=== PATIENT | female | born 1945 | race Caucasian/White ===

== ENCOUNTER 2018-09-10 19:35 | Emergency (ER) | payer MEDICARE, MEDICAID ==
--- NOTE | 2018-09-10 20:21 | ED ---
Back Pain - HPI Summary HPI Summary: This patient is a 73 year old F brought in by ambulance to [facility] from [facility] living with a chief complaint of progressively worsening thoracic and lumber back pain for the past two weeks that differs from her chronic back pain. Patient additionally reports dizziness. She reports three falls in the past two months. She reports chronic back pain from a previous spinal surgery in November of 2017. She is currently seen the pain clinic. She additionally reports a history of Abdominal Aortic Aneurysm. Reports previous bowel obstruction. - History of Current Complaint Chief Complaint: EDBackInjuryPain Stated Complaint: BACK PAIN PER EMS Time Seen by Provider: 09/10/18 19:50 Hx Obtained From: Patient Onset/Duration: Gradual Onset, Lasting Weeks Onset/Duration: Started Weeks Ago Timing: Constant Back Pain Location: Is Diffuse - thoracic and lumbar pain Pain Intensity: 10 Pain Scale Used: 0-10 Numeric Associated Signs And Symptoms: Positive: Other - dizziness - Allergies/Home Medications Allergies/Adverse Reactions: Allergies Allergy/AdvReac Type Severity Reaction Status Date / Time cephalexin Allergy Unknown Verified 09/10/18 20:09 Reaction Details Penicillins Allergy Unknown Verified 09/10/18 20:09 Reaction Details Sulfa (Sulfonamide Allergy Unknown Verified 09/10/18 20:09 Antibiotics) Reaction Details PMH/Surg Hx/FS Hx/Imm Hx Cardiovascular History: Reports: Hx Hypercholesterolemia, Other Cardiovascular Problems/Disorders - AAA per patient Musculoskeletal History: Reports: Hx Arthritis - R.A., Hx Back Problems - Surgical History Surgery Procedure, Year, and Place: Back surgery x2 Infectious Disease History: No Infectious Disease History: Denies: Traveled Outside the [place] in Last 30 Days - Family History Known Family History: Negative: Seizure Disorder - Social History Alcohol Use: None Substance Use Type: Reports: None Smoking Status (MU): Former Smoker Review of Systems Positive: Myalgia Positive: Other - dizziness All Other Systems Reviewed And Are Negative: Yes Physical Exam - Summary Physical Exam Summary: GENERAL: Patient is a well-developed and nourished F who is lying comfortable in the stretcher. Patient is not in any acute respiratory distress. HEAD AND FACE: Normocephalic EYES: PERRLA, EOMI x 2. EARS: Hearing grossly intact. MOUTH: Oropharynx within normal limits. NECK: Supple, trachea is midline, no adenopathy, no JVD, no carotid bruit. CHEST: Symmetric, no tenderness at palpation LUNGS: Clear to auscultation bilaterally. No wheezing or crackles. CVS: Regular rate and rhythm, S1 and S2 present, no murmurs or gallops appreciated. ABDOMEN: Soft, Tenderness to palpation diffusely, no rebound or guarding . Bowel sounds are normal. No abnormal abdominal pulsations. EXTREMITIES: Full ROM in all major joints, no edema, no cyanosis or clubbing. NEURO: Alert and oriented x 3. No acute neurological deficits. Speech is normal and follows commands. SKIN: Dry and warm Triage Information Reviewed: Yes Vital Signs On Initial Exam: Initial Vitals Temp Pulse Resp BP Pulse Ox 98.6 F 77 16 117/80 92 09/10/18 19:43 09/10/18 19:43 09/10/18 19:43 09/10/18 19:43 09/10/18 19:43 Vital Signs Reviewed: Yes Diagnostics - Vital Signs Vital Signs Temp Pulse Resp BP Pulse Ox 09/10/18 19:43 98.6 F 77 16 117/80 92 - Laboratory Result Diagrams: 09/10/18 20:17 09/10/18 20:17 Lab Statement: Any lab studies that have been ordered have been reviewed, and results considered in the medical decision making process. Back Pain Course/Dx - Course Course Of Treatment: 73 year old F brought in by ambulance to [facility] from [facility] with a chief complaint of progressively worsening thoracic and lumber back pain for the past two weeks that differs from her chronic back pain. Patient additionally reports dizziness. She additionally reports a history of Abdominal Aortic Aneurysm. Patient is given IV fluids. Bloodwork obtained. Patient is signed out to Dr. Santos pending Chest/A/P CT. - Diagnoses Provider Diagnoses: Chronic pain Discharge - Sign-Out/Discharge Documenting (check all that apply): Sign-Out Patient Signing out patient TO: Paulo Santos - CT A/P Patient Received Moderate/Deep Sedation with Procedure: No - Discharge Plan Condition: Stable Disposition: HOME Patient Education Materials: Chronic Pain (ED) Referrals: Cynthia Ortega MD [Primary Care Provider] - Additional Instructions: Your CT scan did not show an aneurysm or anything worrisome as a cause of your pain. You are on a number of pain medications already, so I am reluctant to intervene in your regimen. - Billing Disposition and Condition Condition: STABLE Disposition: Home - Attestation Statements Document Initiated by Scribe: Yes Documenting Scribe: Mari Spaulding Provider For Whom Scribe is Documenting (Include Credential): Dennise Saldaña MD Scribe Attestation: IMari, scribed for Dennise Saldaña MD on 09/13/18 at 1249. Scribe Documentation Reviewed: Yes Provider Attestation: The documentation as recorded by the Mari forrest accurately reflects the service I personally performed and the decisions made by , Dennise Saldaña MD Status of Scribe Document: Viewed
[2018-09-10] MEDS ORDERED: NS 0.9% 1000 ML** 1,000 ML IV ONE (20:23)
[2018-09-10 20:31] LABS: ABS Basophils 0.1 10^3/ul (0-0.2); ABS Eosinophils 0.3 10^3/ul (0-0.6); ABS Lymphocytes 1.6 10^3/ul (1.0-4.8); ABS Monocytes 0.8 10^3/ul (0-0.8); ABS Neutrophils 4.1 10^3/ul (1.5-7.7); Eosinophil % 4.8 %; Hematocrit 36 % (35-47); Hemoglobin 11.9 g/dL (12.0-16.0); Lymphocyte % 22.7 %; Mean Corpuscular HGB Conc 34 g/dL (31-36); Mean Corpuscular Hemoglobin 30 pg (27-31); Mean Corpuscular Volume 89 fL (80-97); Mean Platelet Volume 8.9 fL (7.4-10.4); Nucleated Red Blood Cells % 0.1; Platelet Count 255 10^3/uL (150-450); Red Blood Count 4.02 10^6 /uL (3.70-4.87); Red Cell Distribution Width 15 % (10.5-15); White Blood Count 6.8 10^3/uL (3.5-10.8)
[2018-09-10 20:37] LABS: INR 1.11 (0.82-1.09)
[2018-09-10 20:47] LABS: Albumin 3.8 g/dL (3.2-5.2); Albumin/Globulin Ratio 1.8 (1-3); BUN/Creatinine Ratio 25.6 (8-20); EGFR African American 87.8 (>60); EGFR Non-African American 72.6 (>60); Globulin 2.1 g/dL (2-4); Potassium 4.3 mmol/L (3.5-5.0); Total Bilirubin 0.3 mg/dL (0.2-1.0); Total Protein 5.9 g/dL (6.4-8.9)
[2018-09-10] MEDS ORDERED: Iohexol 350* (CONTRAST) 500 ML MDV IV ONE (21:19)
--- NOTE | 2018-09-10 23:24 | ED ---
Progress - Progress Note Progress Note: This patient is a sign-out from Dr. Saldaña to Dr. Santos at 1999 on 09/10/18 at shift change pending CTA chest/A/P and disposition. Course/Dx - Course Course Of Treatment: This patient is a sign-out from Dr. Saldaña to Dr. Santos at 1999 on 09/10/18 at shift change pending CTA chest/A/P and disposition. CT chest revealed 1. No aortic dissection, aneurysm, or rupture. 2. No pulmonary emboli. Findings which in the proper clinical setting can be seen in pulmonary hypertension. 3. 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 Dr. Santos has reviewed this radiology report. CT A/ P revealed 1. Infrarenal fusiform aortic aneurysm. No rupture. 2. Distal colonic diverticulosis. Dr. Santos has reviewed this radiology report. Patient will be discharged home with dx of chronic pain. Patient understands and agrees with this plan. - Diagnoses Provider Diagnoses: Chronic pain Discharge - Sign-Out/Discharge Documenting (check all that apply): Patient Departure - Discharge Patient Received Moderate/Deep Sedation with Procedure: No - Discharge Plan Condition: Stable Disposition: HOME Patient Education Materials: Chronic Pain (ED) Referrals: Cynthia Ortega MD [Primary Care Provider] - Additional Instructions: Your CT scan did not show an aneurysm or anything worrisome as a cause of your pain. You are on a number of pain medications already, so I am reluctant to intervene in your regimen. - Billing Disposition and Condition Condition: STABLE Disposition: Home - Attestation Statements Document Initiated by Altaf: Yes Documenting Scribe: Nahid Monzon Provider For Whom Altaf is Documenting (Include Credential): Paulo Santos MD Scribdamari Attestation: Nahid Tyson, scribed for Paulo Santos MD on 09/12/18 at 0222. Scribe Documentation Reviewed: Yes Provider Attestation: The documentation as recorded by the Nahid forrest accurately reflects the service I personally performed and the decisions made by me, Paulo Santos MD Status of Scrkhanh Document: Viewed
[2018-09-11 00:28] VITALS: BP 134/71
[2018-09-11] MEDS ORDERED: oxyCODONE/Acetamin 5/325 MG* TAB PO ONE (00:54)
== END 2018-09-11 03:47 | disposition home or self-care (01) ==
LOC: ED 19:35
DX: G89.29 Other chronic pain (principal); J43.9 Emphysema, unspecified; I71.9 Aortic aneurysm of unspecified site, without rupture; K57.90 Diverticulosis of intestine, part unspecified, without perforation or abscess without bleeding; Z88.3 Allergy status to other anti-infective agents; Z88.0 Allergy status to penicillin; Z88.2 Allergy status to sulfonamides; E78.00 Pure hypercholesterolemia, unspecified; Z87.891 Personal history of nicotine dependence
CPT/HCPCS: 36415; 71275; 74174; 80053; 83605; 83690; 84484; 85025; 85610; 85730; 99284; A9270-GY; Q9967

== ENCOUNTER 2018-11-06 22:40 | Inpatient (IN) | payer MEDICARE, MEDICAID ==
[2018-11-06] MEDS ORDERED: Albuterol/Ipratropium NEB.SOL* Albuterol 2.5 MG/Ipratropium 0.5 MG 3 ML INH ONE (23:12)
[2018-11-06 23:45] LABS: ABS Basophils 0.1 10^3/ul (0-0.2); ABS Eosinophils 0.1 10^3/ul (0-0.6); ABS Lymphocytes 0.6 10^3/ul (1.0-4.8); ABS Monocytes 0.6 10^3/ul (0-0.8); ABS Neutrophils 7.7 10^3/ul (1.5-7.7); Eosinophil % 1.4 %; Hematocrit 34 % (35-47); Hemoglobin 10.8 g/dL (12.0-16.0); Lymphocyte % 6.2 %; Mean Corpuscular HGB Conc 32 g/dL (31-36); Mean Corpuscular Hemoglobin 27 pg (27-31); Mean Corpuscular Volume 82 fL (80-97); Mean Platelet Volume 8.8 fL (7.4-10.4); Platelet Count 238 10^3/uL (150-450); Red Blood Count 4.07 10^6 /uL (3.70-4.87); Red Cell Distribution Width 17 % (10-15); White Blood Count 9.1 10^3/uL (3.5-10.8)
[2018-11-06 23:50] LABS: INR 1.05 (0.82-1.09)
[2018-11-07] LABS: Albumin 3.7 g/dL (3.2-5.2); Albumin/Globulin Ratio 1.5 (1-3); C Reactive Protein 13.89 mg/L (<8.01); Calcium 9.3 mg/dL (8.6-10.3); EGFR African American 75.4 (>60); EGFR Non-African American 62.3 (>60); Globulin 2.4 g/dL (2-4); Potassium 4.3 mmol/L (3.5-5.0); Total Bilirubin 0.3 mg/dL (0.2-1.0); Total Protein 6.1 g/dL (6.4-8.9)
[2018-11-07] MEDS ORDERED: Levofloxacin 750 MG IVPREMIX(* 750 MG/150 ML BAG IVPB ONE
--- NOTE | 2018-11-07 00:02 | ED ---
Shortness of Breath - HPI Summary HPI Summary: Patient with history of COPD and immunosuppression complains of chills, sweats, productive cough, fatigue, mild SOB 1 week. 2 episodes of bright red blood with coughing today. Denies fever, CP, N/V/D, abdominal pain, change in urine, change in BM. Patient is from [place] in assisted living. Denies recent hospitalization in the past 90 days. EMS states patient went down to 84% O2 sats on room air, and was placed on oxygen. Medical history is COPD, colostomy , greatest. - History of Current Complaint Chief Complaint: EDBleedingDisorder Time Seen by Provider: 11/06/18 22:56 Hx Obtained From: Patient Onset/Duration: Gradual Onset, Lasting Days Current Severity: Moderate Aggravating Factors: Movement Alleviating Factors: Oxygen Associated Signs & Symptoms: Cough (Productive), Cough (Bloody Sputum), Chills - Allergy/Home Medications Allergies/Adverse Reactions: Allergies Allergy/AdvReac Type Severity Reaction Status Date / Time cephalexin Allergy Unknown Verified 11/06/18 22:49 Reaction Details Penicillins Allergy Unknown Verified 11/06/18 22:49 Reaction Details Sulfa (Sulfonamide Allergy Unknown Verified 11/06/18 22:49 Antibiotics) Reaction Details Home Medications: Home Medications Albuterol Sulfate Hfa 2 puff INH QID PRN 11/06/18 [History Confirmed 11/06/18] PMH/Surg Hx/FS Hx/Imm Hx Endocrine/Hematology History: Denies: Hx Diabetes Cardiovascular History: Reports: Hx Hypercholesterolemia, Hx Hypertension, Other Cardiovascular Problems/Disorders - AAA per patient Respiratory History: Reports: Hx Chronic Obstructive Pulmonary Disease (COPD) History: Denies: Hx Renal Disease Musculoskeletal History: Reports: Hx Arthritis - R.A., Hx Back Problems, Hx Osteoporosis Sensory History: Denies: Hx Legally Blind Opthamlomology History: Denies: Hx Eye Prosthesis EENT History: Denies: Hx Deafness Neurological History: Denies: Hx Developmental Delay Psychiatric History: Denies: Hx Autism - Surgical History Surgery Procedure, Year, and Place: Back surgery x2 Infectious Disease History: No Infectious Disease History: Denies: Traveled Outside the [place] in Last 30 Days - Family History Known Family History: Negative: Seizure Disorder - Social History Alcohol Use: None Substance Use Type: Reports: None Smoking Status (MU): Former Smoker Review of Systems Positive: Chills, Fatigue Eyes: Negative ENT: Negative Cardiovascular: Negative Positive: Shortness Of Breath, Cough Gastrointestinal: Negative Genitourinary: Negative Musculoskeletal: Negative Skin: Negative Neurological: Negative Psychological: Normal All Other Systems Reviewed And Are Negative: Yes Physical Exam Triage Information Reviewed: Yes Vital Signs On Initial Exam: Initial Vitals Temp Pulse Resp BP Pulse Ox 98 F 88 20 113/65 94 11/06/18 22:43 11/06/18 22:43 11/06/18 22:43 11/06/18 22:43 11/06/18 22:43 Vital Signs Reviewed: Yes Appearance: Positive: Well-Appearing Skin: Positive: Warm Head/Face: Positive: Normal Head/Face Inspection Eyes: Positive: Normal ENT: Positive: Normal ENT inspection Neck: Positive: Supple Respiratory/Lung Sounds: Positive: Decreased Breath Sounds Cardiovascular: Positive: RRR, Murmur Abdomen Description: Positive: Nontender Musculoskeletal: Positive: Normal Neurological: Positive: Normal Psychiatric: Positive: Normal AVPU Assessment: Alert - Kimberly Coma Scale Best Eye Response: 4 - Spontaneous Best Motor Response: 6 - Obeys Commands Best Verbal Response: 5 - Oriented Coma Scale Total: 15 Diagnostics - Vital Signs Vital Signs Temp Pulse Resp BP Pulse Ox 11/06/18 23:19 86 17 106/63 84 11/06/18 23:17 90 23 89 11/06/18 23:01 88 12 91 11/06/18 22:46 89 113/65 90 11/06/18 22:44 92 11/06/18 22:43 98 F 88 20 113/65 94 - Laboratory Lab Results: Lab Results 11/06/18 11/06/18 11/06/18 Range/Units 23:35 23:37 23:37 WBC 9.1 (3.5-10.8) 10^3/uL RBC 4.07 (3.70-4.87) 10^6 /uL Hgb 10.8 L (12.0-16.0) g/dL Hct 34 L (35-47) % MCV 82 (80-97) fL MCH 27 (27-31) pg MCHC 32 (31-36) g/dL RDW 17 H (10-15) % Plt Count 238 (150-450) 10^3/uL MPV 8.8 (7.4-10.4) fL Neut % (Auto) 84.6 % Lymph % (Auto) 6.2 % Wythe % (Auto) 6.9 % Eos % (Auto) 1.4 % Baso % (Auto) 0.9 % Absolute Neuts (auto) 7.7 (1.5-7.7) 10^3/ul Absolute Lymphs (auto) 0.6 L (1.0-4.8) 10^3/ul Absolute Monos (auto) 0.6 (0-0.8) 10^3/ul Absolute Eos (auto) 0.1 (0-0.6) 10^3/ul Absolute Basos (auto) 0.1 (0-0.2) 10^3/ul Absolute Nucleated RBC 0.0 10^3/ul Nucleated RBC % 0.0 INR (Anticoag Therapy) 1.05 (0.82-1.09) ABG pH 7.39 (7.35-7.45) ABG pCO2 37 (35-45) mmHg ABG pO2 58 L* (80-100) mmHg ABG HCO3 23.0 (19-31) mmol/L ABG O2 Saturation 91.0 L (94.0-98.0) % ABG Base Excess -2.2 L (-2.0-2.0) mmol/L Result Diagrams: 11/06/18 23:37 11/06/18 23:37 Lab Statement: Any lab studies that have been ordered have been reviewed, and results considered in the medical decision making process. Course/Dx - Course Course Of Treatment: Patient with history of COPD and immunosuppression complains of chills, sweats, productive cough, fatigue, mild SOB 1 week. 2 episodes of bright red blood with coughing today. Denies fever, CP, N/V/D, abdominal pain, change in urine, change in BM. Patient is from [place] in assisted living. Denies recent hospitalization in the past 90 days. EMS states patient went down to 84% O2 sats on room air, and was placed on oxygen. Medical history is COPD, colostomy, graves,. 87% on room air. Vital signs otherwise within normal limits. Initial BP within normal limits, later dropped to 90/58. Patient started on normal saline with improvement of BP. Hgb 10.8. Chest x-ray positive for right-sided infiltrate. Started on Levaquin here in the ED. Admitted to hospitalist. - Diagnoses Provider Diagnoses: Pneumonia, Hypoxia Discharge - Sign-Out/Discharge Documenting (check all that apply): Patient Departure Patient Received Moderate/Deep Sedation with Procedure: No - Discharge Plan Condition: Stable Disposition: ADMITTED TO [facility] Referrals: Cynthia Ortega MD [Primary Care Provider] - - Billing Disposition and Condition Condition: STABLE Disposition: Admitted to [facility]
[2018-11-07] MEDS ORDERED: NS 0.9% 1000 ML** 1,000 ML IV ONE ×2 (00:27→17:00)
[2018-11-07] MEDS ORDERED: Acetaminophen TAB* 325 MG PO ONE (00:27)
[2018-11-07] MEDS ORDERED: Acetaminophen / Codeine* #3 (300 MG/30 MG) TAB PO ONE (00:39)
[2018-11-07] MEDS ORDERED: Iohexol 350* (CONTRAST) 500 ML MDV IV ONE (00:51)
[2018-11-07] MEDS ORDERED: Cyclobenzaprine TAB* 10 MG PO PRN (00:54)
[2018-11-07] MEDS ORDERED: Al Hydrox/Mg Hydrox/Simet LIQ* 30 ML UDC PO PRN (00:54)
[2018-11-07] MEDS ORDERED: Albuterol HFA INHALER* 8 gm MDI INH PRN (00:54)
[2018-11-07] MEDS ORDERED: Albuterol/Ipratropium NEB.SOL* Albuterol 2.5 MG/Ipratropium 0.5 MG 3 ML INH PRN (01:25)
[2018-11-07] MEDS ORDERED: PROCHLORPERAZINE INJ 5 MG/ML 2 ML VIAL IV PRN (01:25)
[2018-11-07] MEDS ORDERED: LACTATED RINGERS IV ONE (01:26)
[2018-11-07 03:12] LABS: ABS Basophils 0.1 10^3/ul (0-0.2); ABS Eosinophils 0.1 10^3/ul (0-0.6); ABS Lymphocytes 0.5 10^3/ul (1.0-4.8); ABS Monocytes 0.6 10^3/ul (0-0.8); ABS Neutrophils 8.4 10^3/ul (1.5-7.7); Eosinophil % 0.7 %; Hematocrit 29 % (35-47); Hemoglobin 9.2 g/dL (12.0-16.0); Lymphocyte % 5.4 %; Mean Corpuscular HGB Conc 32 g/dL (31-36); Mean Corpuscular Hemoglobin 26 pg (27-31); Mean Corpuscular Volume 81 fL (80-97); Mean Platelet Volume 9.2 fL (7.4-10.4); Platelet Count 212 10^3/uL (150-450); Red Cell Distribution Width 17 % (10-15); White Blood Count 9.6 10^3/uL (3.5-10.8)
[2018-11-07 03:21] LABS: BUN/Creatinine Ratio 26.2 (8-20); Calcium 8.2 mg/dL (8.6-10.3); EGFR African American 80.6 (>60); EGFR Non-African American 66.6 (>60); Potassium 4.4 mmol/L (3.5-5.0)
--- NOTE | 2018-11-07 04:58 | HP ---
CC: Dr. Ortega; Dr. Mcmahan HISTORY AND PHYSICAL: DATE OF ADMISSION: 11/07/18 TIME OF EVALUATION: 12:10 a.m. PRIMARY CARE PROVIDER: Dr. Ortega. CAST IRON DIPPER: Dr. Mcmahan. CHIEF COMPLAINT: "I was coughing up blood." HISTORY OF PRESENT ILLNESS: Mrs. Stuart is a 73-year-old lady with a past medical history of rheumatoid arthritis; osteoarthritis; coronary artery disease , status post [place]; hypertension; hypothyroidism, who presents to the emergency room with complaints of worsening cough and yellowish sputum mixed with blood. The patient states she was in her usual state of health until two weeks ago when she started to experience dry cough. She states "everyone at [facility] is sick and coughing up everywhere." She states that initially she had only a dry cough and was not taking any medications for it. Over the past couple of days, she started to have some malaise, some weakness and today this cough became productive with yellow/greenish sputum mixed with blood. She states that this has happened to her in the past when she was in [place] and she was diagnosed with pneumonia and treated with antibiotics. She denies chest pain, palpitations, shortness of breath, nausea, vomiting, diarrhea. Although, she denies shortness of breath in the emergency room, she did have an oxygen saturation in the high 80s and required supplemental oxygen. PAST MEDICAL HISTORY: 1. Rheumatoid arthritis. 2. Osteoarthritis. 3. Coronary artery disease, status post AZ. 4. Hypothyroidism. 5. Hypertension. ALLERGIES: CEPHALEXIN, PENICILLIN, and SULFA, the patient has hives and shortness of breath. FAMILY HISTORY: Both parents had a history of heart disease. Her father had bypass and pacemaker and both in their 80s. SOCIAL HISTORY: The patient was a smoker from age 14 to 67 of half a pack a day. She says that then she smoked small cigars, but she has completely quit for the past 6 years. She denies any history of alcohol or drug use. She used to live in [place], but then she moved to [place] to be near her son. Her son is her surrogate decision maker, Dony Stuart, phone number is [phone]. REVIEW OF SYSTEMS: A 14-point review of systems was performed and all the pertinent negatives are in the HPI. PHYSICAL EXAMINATION GENERAL: An obese elderly lady, lying in the ED stretcher, in no acute distress. VITAL SIGNS: Temperature 98.7, heart rate is 88, respiratory rate is 17, oxygen saturation is 92% on 2 L of nasal cannula, blood pressure is 97/54. HEENT: Pupils are equal. Moist mucous membranes. CHEST: Breath sounds present bilaterally with crackles on the right. CVS: Normal S1, S2. ABDOMEN: Obese, soft, nontender, nondistended. Bowel sounds are present. EXTREMITIES: No edema. NEURO: She is alert, awake and oriented x3. Able to move all four extremities. DIAGNOSTIC STUDIES/LAB DATA: The patient had a CBC that showed WBC of 9.1, hemoglobin of 10.8, hematocrit of 34, platelets of 238 with 84% neutrophils. INR is 1.05. ABG showed a pH of 7.39, pCO2 of 37, pO2 of 58, bicarb of 23, oxygen saturation 91% on room air. Chemistry showed sodium of 147, potassium 4.3, chloride of 104, bicarb of 22, BUN of 24, creatinine of 0.89 with a glucose of 129, lactic acid is 3.1, calcium is 9.3. LFTs were normal. CRP is 13.8. Chest x-ray is not yet officially read. The patient appears to have an infiltrate on the right mid lower lobe. ASSESSMENT AND PLAN: Mrs. Stuart is a 73-year-old female with a past medical history of rheumatoid arthritis, osteoarthritis, coronary artery disease, hypertension, hypothyroidism, who presented to the emergency room with complaints of cough and hemoptysis, found to have community-acquired pneumonia. 1. Community-acquired pneumonia. The patient does not meet SIRS criteria at this time, but she clearly has an infection as demonstrated on her chest x-ray. She is immunosuppressed with her rheumatoid arthritis and on methotrexate as an outpatient what inhibits her immune response, so she may not be able to mount a response to meet sepsis criteria. She had an one episode of hypotension with a blood pressure of 78/53 in the emergency room and I believe this is probably secondary to a misread on the machine as shortly after she had a blood pressure of 103/60. Her lactic acid is elevated at 3.1, so she will receive her fluid bolus and we will monitor her vital signs. She states that she had shortness of breath and the rash with cephalosporins and penicillin, so she will be continued on levofloxacin at this time. I will send Legionella and Pneumococcal antigen. Blood cultures were sent in the emergency room. As the patient has hypoxia and hemoptysis, I am also going to check a CT of the chest to better delineate her infiltrate and to rule out pulmonary embolism. 2. Acute hypoxemic respiratory failure secondary to pneumonia. The patient lives alone. History of tobacco abuse. We will continue supplemental oxygen and she does not appear to require any bronchodilators at this time. 3. Hypertension. Her blood pressure is on the lower side at this time. We will continue her antihypertensives with holding parameters. 4. Hypothyroidism. We will continue on levothyroxine. 5. Rheumatoid arthritis. We will continue hydroxychloroquine, but we will hold methotrexate for now. 6. DVT prophylaxis: The patient has a score of 3 on the DVT Prophylaxis Risk Assessment Guide. We will hold off on pharmacological prophylaxis for now due to her hemoptysis and she will have SCDs. As her hemoptysis improve, pharmacological prophylaxis can be considered. 7. Code status was discussed with the patient and she wishes to be a full code. TIME SPENT: Approximately 55 minutes was spent with the patient's review , medical records review, physical examination to complete this admission, more than half of this time was spent [id number] with the patient and coordination of care. [id number]/[facility] #: [id number] [place]
[2018-11-07] MEDS: Levothyroxine TAB* 112 MCG TAB PO SCH (05:09)
[2018-11-07] MEDS ORDERED: Heparin VIAL(*) 5000 UNITS/ML VIAL (FIVE THOUSAND) SUBCUT SCH (06:00)
[2018-11-07] MEDS ORDERED: Metoprolol Tartrate TAB* 50 mg PO SCH ×2 (09:00)
[2018-11-07] MEDS ORDERED: Verapamil SR CAP* 180 MG PO SCH (09:00)
[2018-11-07] MEDS ORDERED: Hydrochlorothiazide TAB* 25 MG PO SCH (09:00)
--- NOTE | 2018-11-07 09:48 | PN ---
Subjective Date of Service: 11/07/18 Interval History: Patient complained of pain on her back and joints which she used to have due to rheumatoid arthritis. She was on pain patch before and was asking for it here. She complained of central chest pain on and off, lasting seconds, no palpitation , no light headiness associated. She denied any past history of heart disease. Objective Active Medications: Acetaminophen (Tylenol Tab*) 650 mg PO Q6H PRN PRN Reason: mild pain/fever>100.4 Acetaminophen/Codeine Phosphate (Tylenol/Codeine 30 Mg Tab*) 2 tab PO BID PRN PRN Reason: Moderate Pain Al Hydrox/Mg Hydrox/Simethicone (Maalox Plus*) 5 ml PO Q4H PRN PRN Reason: HEARTBURN Albuterol (Ventolin Hfa Inhaler*) 2 puff INH QID PRN PRN Reason: SHORTNESS OF BREATH Albuterol/Ipratropium (Duoneb (Albuterol 2.5 Mg/Ipratropium 0.5 Mg)) 1 neb INH Q4H PRN PRN Reason: SOB/WHEEZING Alprazolam (Xanax Tab*) 0.25 mg PO BID PRN PRN Reason: ANXIETY Aspirin (Aspirin Ec Tab*) 81 mg PO DAILY [facility] Atorvastatin Calcium (Lipitor*) 40 mg PO DAILY [facility] Calcium/Vitamin D (Oscal D Tab 250/125*) 1 tab PO BID [facility] Cyclobenzaprine HCl (Flexeril Tab*) 5 mg PO BID PRN PRN Reason: SPASMS Duloxetine HCl (Cymbalta Cap*) 20 mg PO DAILY [facility] Famotidine (Pepcid Tab*) 20 mg PO BEDTIME [facility]; Protocol Folic Acid (Folvite Tab*) 1 mg PO DAILY [facility] Gabapentin (Neurontin Cap(*)) 300 mg PO TID [facility] Hydroxychloroquine Sulfate (Plaquenil Tab*) 200 mg PO DAILY [facility] Levofloxacin/Dextrose (Levaquin 750 Mg Ivpremix(*)) 750 mg in 150 mls @ 100 mls /hr IVPB Q24H [facility]; Protocol Levothyroxine Sodium (Synthroid Tab*) 112 mcg PO DAILY@0600 [facility] Last Admin: 11/07/18 05:09 Dose: 112 mcg Lidocaine (Lidoderm 5% Patch*) 1 patch TRANSDERM DAILY [facility] Metoprolol Tartrate (Lopressor Tab*) 50 mg PO BID [facility] Multi-Ingredient Liniment/Rub (Arjun Moreno*) 1 applic TOPICAL TID [facility] Pantoprazole Sodium (Protonix Tab*) 40 mg PO DAILY [facility] Pharmacy Profile Note (Lidocaine Patch Remove*) 1 note N/A 2100 [facility] Potassium Chloride (Klor Con Er Tab*) 10 meq PO BID [facility] Prochlorperazine Edisylate (Compazine Inj*) 5 mg IV Q6H PRN PRN Reason: NAUSEA/VOMITING Verapamil HCl (Calan Sr Cap*) 180 mg PO DAILY [facility] Vital Signs - 8 hr 11/07/18 11/07/18 11/07/18 01:46 01:48 02:00 Temperature 98.7 F Pulse Rate 93 91 Respiratory 19 20 Rate Blood Pressure 115/56 (mmHg) O2 Sat by Pulse 90 90 Oximetry 11/07/18 11/07/18 11/07/18 02:17 02:47 03:00 Temperature Pulse Rate 91 91 87 Respiratory 19 21 20 Rate Blood Pressure 104/62 (mmHg) O2 Sat by Pulse 89 90 90 Oximetry 11/07/18 11/07/18 11/07/18 03:16 03:47 03:54 Temperature 98.9 F Pulse Rate 89 87 89 Respiratory 21 19 19 Rate Blood Pressure 115/61 99/54 99/54 (mmHg) O2 Sat by Pulse 90 89 91 Oximetry 11/07/18 11/07/18 11/07/18 04:01 04:27 07:15 Temperature 98.4 F 98.2 F Pulse Rate 88 90 85 Respiratory 21 20 20 Rate Blood Pressure 105/50 111/50 (mmHg) O2 Sat by Pulse 90 94 95 Oximetry 11/07/18 07:50 Temperature Pulse Rate Respiratory 20 Rate Blood Pressure (mmHg) O2 Sat by Pulse Oximetry Oxygen Devices in Use Now: Nasal Cannula Exam: heart S1 S2, holysystolic murmur loudest on right sternal edge Lung: bibasal crackles, right side crackles prominent in both middle and lower lobes Abdomen: colostomy bag noted, soft, non tender. Lower exemity: no swelling Result Diagrams: 11/07/18 02:57 11/07/18 02:57 Additional Lab and Data: Lab Results 11/06/18 11/06/18 11/06/18 Range/Units 23:35 23:37 23:37 WBC 9.1 (3.5-10.8) 10^3/uL RBC 4.07 (3.70-4.87) 10^6 /uL Hgb 10.8 L (12.0-16.0) g/dL Hct 34 L (35-47) % MCV 82 (80-97) fL MCH 27 (27-31) pg MCHC 32 (31-36) g/dL RDW 17 H (10-15) % Plt Count 238 (150-450) 10^3/uL MPV 8.8 (7.4-10.4) fL Neut % (Auto) 84.6 % Lymph % (Auto) 6.2 % [place] % (Auto) 6.9 % Eos % (Auto) 1.4 % Baso % (Auto) 0.9 % Absolute Neuts (auto) 7.7 (1.5-7.7) 10^3/ul Absolute Lymphs (auto) 0.6 L (1.0-4.8) 10^3/ul Absolute Monos (auto) 0.6 (0-0.8) 10^3/ul Absolute Eos (auto) 0.1 (0-0.6) 10^3/ul Absolute Basos (auto) 0.1 (0-0.2) 10^3/ul Absolute Nucleated RBC 0.0 10^3/ul Nucleated RBC % 0.0 INR (Anticoag Therapy) 1.05 (0.82-1.09) ABG pH 7.39 (7.35-7.45) ABG pCO2 37 (35-45) mmHg ABG pO2 58 L* (80-100) mmHg ABG HCO3 23.0 (19-31) mmol/L ABG O2 Saturation 91.0 L (94.0-98.0) % ABG Base Excess -2.2 L (-2.0-2.0) mmol/L Assess/Plan/Problems-Billing Assessment: Ms. Stuart is a 73 years old lady with a background of rheumatoid arthritis, osteoarthritis, coronary artery disease, status post CA, hypertension, hypothjyroidism, who presented to ED for worsening cough and hemoptysis. With her symptoms of cough and hemoptysis, her elevated WBC and CRP, infiltrate on right middle and lower lobe in CXR, she is certainly having a community acquired pneumonia. She didn't have any fever, hypotension, kidney injury at this moment, although lactate is midly elevated, her penumonia is considering mid-moderate. But again, this could be due to her immunosuppressant state so she couldn't mount SIRS response as normal people. We are treating for CAP with levofloxacin in view of allergy, and will monitor how she responds to this treatment. - Patient Problems (1) Community acquired pneumonia Current Visit: Yes Status: Acute Code(s): J18.9 - PNEUMONIA, UNSPECIFIED ORGANISM SNOMED Code(s): 631610452 Comment: Continue iv levofloxacin continue O2 nasal canula, try to wean down when possible. monitor antibiotic response trace strep peumonia, legionella result (2) Rheumatoid arthritis Current Visit: Yes Status: Acute Code(s): M06.9 - RHEUMATOID ARTHRITIS, UNSPECIFIED SNOMED Code(s): 94521328 Comment: on MTX and hydroxychloroquine, we hold off Methotrexate for now due to infection. Lidocaine patch and Arjun-Moreno patches for her arthritic pain. (3) Hypertension Current Visit: Yes Status: Acute Code(s): I10 - ESSENTIAL (PRIMARY) HYPERTENSION SNOMED Code(s): 63889875 Comment: - old med include hydrochlothiazide, verapamil, metoprolol for hypertension - bp lowish since admission, stop hydrochlothiazide, verapamil, decrease metoprol to 25mg bid for now - put on NS for bp and hydration purpose - watch bp closely (4) Hypothyroidism Current Visit: Yes Status: Acute Code(s): E03.9 - HYPOTHYROIDISM, UNSPECIFIED SNOMED Code(s): 57922213 Comment: Continue old dose of levothyroidism (5) Osteoarthritis Current Visit: Yes Status: Acute Code(s): M19.90 - UNSPECIFIED OSTEOARTHRITIS, UNSPECIFIED SITE SNOMED Code(s): 047539478 Comment: not well controlled pain despite multiple med, see details under the problem joint pain (6) Coronary artery disease Current Visit: Yes Status: Acute Code(s): I25.10 - ATHSCL HEART DISEASE OF [place] CORONARY ARTERY W/O ANG PCTRS SNOMED Code(s): 05782353 Comment: on aspirin, statin, metoprolol (7) Joint pain Current Visit: Yes Status: Acute Code(s): M25.50 - PAIN IN UNSPECIFIED JOINT SNOMED Code(s): 17904555 Comment: old pain med: ibuprofen 400mg q8h, acetaminophen/codeine 30mg tab, buprenorhine 10mcg patch, gabapentin, duolexetine - add on diclofenac gel and lidocaine patch since buprenorhine patch not available in hospital - continue ibuprofen and acetaminophen/codeine, gabapentin for now - consider heat/ice compression for joint pain Status and Disposition: Still inpatient medicine Attestation Documenting Resident: Lizzy Wu Supervising Physician: Hiral Isbell Attestation: This service has been performed in part by a resident under the direction of a teaching physician.I, Hiral Isbell, performed the service, or was physically present during the critical, or sanchez portions of the service, furnished by the resident. I participated in the management of the patient.
[2018-11-07] MEDS: Lidocaine PATCH 5%* 1 PATCH TRANSDERM SCH (10:02)
[2018-11-07] MEDS: Calcium/Vitamin D TAB 250/125* TAB PO SCH ×2 (10:02→20:16)
[2018-11-07] MEDS: Pantoprazole TAB * 40 MG TAB PO SCH (10:02)
[2018-11-07] MEDS: Folic Acid TAB* 1 MG PO SCH (10:02)
[2018-11-07] MEDS: Atorvastatin* 40 MG TAB PO SCH (10:03)
[2018-11-07] MEDS: DULoxetine DR CAP* 20 MG CAP.DR PO SCH (10:03)
[2018-11-07] MEDS: Aspirin EC TAB* 81 MG TAB.EC PO SCH (10:03)
[2018-11-07] MEDS: Hydroxychloroquine TAB* 200 MG PO SCH (10:03)
[2018-11-07] MEDS: Gabapentin CAP(*) 300 MG PO SCH ×3 (10:03→20:16)
[2018-11-07] MEDS: Potassium Chlor TAB* 10 MEQ TAB.ER PO SCH ×2 (10:03→20:16)
[2018-11-07] MEDS: Analgesic BALM* 114 GM TOPICAL SCH ×2 (11:25→12:26)
[2018-11-07] MEDS: Acetaminophen TAB* 325 MG PO PRN (14:57)
--- NOTE | 2018-11-07 18:30 | PN ---
Hospitalist Progress Note Date of Service: 11/07/18 Subjective and Objective data per resident note for which I supervised. Attending Assessment and Plan: 73F PMH RA on MTX/Plaquenil, chronic pain on Butrans, anxeity and depression on benzo, HTN, hypothyroid, CAD s/p distant DE, heart murmur with recent Echo showing Left Ventricular Hypertrophy w DYNAMIC LVOT who presented with cough found to have RLL PNA, hypoxic resp failure, elevated lactic acid Hospital course c/b mild hypotension #CAP: -Levaquin day 05/19-10 on 11/07/2018 -Allergy to Cephalosporins -Continue to monitor #Hypoxic Resp failure: New O2 requirement #Hypotension: Ongoing, repsonsive to gentle fluids -Dose reduce metoprolol -DC HCTZ -Hold Verapmil 180mg SR #Elevated Lactic Acid, initially improved then increased with hypotension again -Trend #Chronic pain: Tylenol, topical, add Buprenorphine low dose oral daily to prevent w/ drawal from d/c patch -Consider pred burst to help from rheum component #RA: Continue plaquenil, reasonable to hold MTX given active infxn #HTN: see Hypotension above #Hypothyroid: home dose #Anxiety/Depression: home meds #DVT PPX: Held for hemptysis, will resume today with [facility] #Code Status: Full
[2018-11-07] MEDS ORDERED: Buprenorphine TAB* 2 MG TAB.SL PO PRN (18:33)
[2018-11-07] MEDS ORDERED: BUPRENORPHINE TRANSDERM SCH (19:30)
[2018-11-07] MEDS: Famotidine TAB* 20 MG PO SCH (20:16)
[2018-11-07] MEDS: Metoprolol Tartrate TAB* 25 MG PO SCH (20:16)
[2018-11-07] MEDS: Lidocaine Patch REMOVE* 1 NOTE MISC SCH (20:22)
[2018-11-07] MEDS: Heparin VIAL(*) 5000 UNITS/ML VIAL (FIVE THOUSAND) SUBCUT SCH (20:23)
[2018-11-08] MEDS: Levofloxacin 750 MG IVPREMIX(* 750 MG/150 ML BAG IVPB SCH (00:36)
[2018-11-08] MEDS: Acetaminophen / Codeine* #3 (300 MG/30 MG) TAB PO PRN ×2 (04:00→21:38)
[2018-11-08] MEDS: Heparin VIAL(*) 5000 UNITS/ML VIAL (FIVE THOUSAND) SUBCUT SCH ×3 (05:46→21:39)
[2018-11-08] MEDS: Levothyroxine TAB* 112 MCG TAB PO SCH (05:47)
[2018-11-08 06:18] LABS: ABS Basophils 0.1 10^3/ul (0-0.2); ABS Eosinophils 0.3 10^3/ul (0-0.6); ABS Lymphocytes 0.8 10^3/ul (1.0-4.8); ABS Monocytes 0.7 10^3/ul (0-0.8); Eosinophil % 2.8 %; Hematocrit 27 % (35-47); Lymphocyte % 8.4 %; Mean Corpuscular HGB Conc 33 g/dL (31-36); Mean Corpuscular Hemoglobin 27 pg (27-31); Mean Corpuscular Volume 82 fL (80-97); Mean Platelet Volume 9.2 fL (7.4-10.4); Platelet Count 197 10^3/uL (150-450); Red Blood Count 3.35 10^6 /uL (3.70-4.87); Red Cell Distribution Width 17 % (10-15); White Blood Count 9.9 10^3/uL (3.5-10.8)
[2018-11-08 06:33] LABS: BUN/Creatinine Ratio 25.4 (8-20); EGFR African American 104.7 (>60); EGFR Non-African American 86.5 (>60)
[2018-11-08] MEDS: Buprenorph Patch Check Q Shift 1 NOTE MISC FOLLOW UP SCH ×2 (06:52→19:10)
--- NOTE | 2018-11-08 08:54 | PN ---
Hospitalist Progress Note Date of Service: 11/08/18 HD # 3 on 11/08 Attending Assessment and Plan: 73F PMH RA on MTX/Plaquenil, chronic pain on Butrans, ostomy status from prior diverticulitis, anxeity and depression on benzo, HTN, hypothyroid, CAD s/p distant ID, heart murmur with recent Echo showing Left Ventricular Hypertrophy w DYNAMIC LVOT who presented with cough found to have RLL PNA, hypoxic resp failure, #CAP: -Levaquin day 06/16 on 11/08/2018 -Allergy to Cephalosporins -Continue to monitor, improving on exam and clinically #Hypoxic Resp failure: New O2 requirement, weaning today #Heart murmur: Old echo showed dynamic LVOT, continue home Verapamil and BB when BP is normal #Hypotension: resolved consider restarting antiHTN #Elevated Lactic Acid: Resolved #Chronic pain: Tylenol, topical, Buprenorphine patch #RA: Continue plaquenil, reasonable to hold MTX given active infxn #HTN: see Hypotension above #Hypothyroid: home dose #Anxiety/Depression: home meds #Ostomy status: 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
--- NOTE | 2018-11-08 08:54 | PN ---
Subjective Date of Service: 11/08/18 Interval History: HD # 3 on 11/08 Attending Assessment and Plan: 73F PMH RA on MTX/Plaquenil, chronic pain on Butrans, anxeity and depression on benzo, HTN, hypothyroid, CAD s/p distant [place], heart murmur with recent Echo showing Left Ventricular Hypertrophy w DYNAMIC LVOT who presented with cough found to have RLL PNA, hypoxic resp failure, elevated lactic acid Hospital course c/b mild hypotension #CAP: -Levaquin day 05/19-10 on 11/07/2018 -Allergy to Cephalosporins -Continue to monitor #Hypoxic Resp failure: New O2 requirement #Hypotension: Ongoing, repsonsive to gentle fluids -Dose reduce metoprolol -DC HCTZ -Hold Verapmil 180mg SR #Elevated Lactic Acid, initially improved then increased with hypotension again -Trend #Chronic pain: Tylenol, topical, add Buprenorphine patch -Consider pred burst to help from rheum component #RA: Continue plaquenil, reasonable to hold MTX given active infxn #HTN: see Hypotension above #Hypothyroid: home dose #Anxiety/Depression: home meds #Ostomy stat #DVT PPX: Held for hemptysis, will resume today with [facility] #Code Status: Full Objective Active Medications: Acetaminophen (Tylenol Tab*) 650 mg PO Q6H PRN PRN Reason: mild pain/fever>100.4 Last Admin: 11/07/18 14:57 Dose: 650 mg Acetaminophen/Codeine Phosphate (Tylenol/Codeine 30 Mg Tab*) 2 tab PO BID PRN PRN Reason: Moderate Pain Last Admin: 11/08/18 04:00 Dose: 2 tab Al Hydrox/Mg Hydrox/Simethicone (Maalox Plus*) 5 ml PO Q4H PRN PRN Reason: HEARTBURN Albuterol (Ventolin Hfa Inhaler*) 2 puff INH QID PRN PRN Reason: SHORTNESS OF BREATH Albuterol/Ipratropium (Duoneb (Albuterol 2.5 Mg/Ipratropium 0.5 Mg)) 1 neb INH Q4H PRN PRN Reason: SOB/WHEEZING Alprazolam (Xanax Tab*) 0.25 mg PO BID PRN PRN Reason: ANXIETY Aspirin (Aspirin Ec Tab*) 81 mg PO DAILY [facility] Last Admin: 11/07/18 10:03 Dose: 81 mg Atorvastatin Calcium (Lipitor*) 40 mg PO DAILY [facility] Last Admin: 11/07/18 10:03 Dose: 40 mg Buprenorphine (Butrans 10 Mcg Patch(Nf)) 10 mcg TRANSDERM Q7D [facility] Last Admin: 11/07/18 20:17 Dose: 10 mcg Calcium/Vitamin D (Oscal D Tab 250/125*) 1 tab PO BID [facility] Last Admin: 11/07/18 20:16 Dose: 1 tab Cyclobenzaprine HCl (Flexeril Tab*) 5 mg PO BID PRN PRN Reason: SPASMS Duloxetine HCl (Cymbalta Cap*) 20 mg PO DAILY [facility] Last Admin: 11/07/18 10:03 Dose: 20 mg Famotidine (Pepcid Tab*) 20 mg PO BEDTIME [facility]; Protocol Last Admin: 11/07/18 20:16 Dose: 20 mg Folic Acid (Folvite Tab*) 1 mg PO DAILY [facility] Last Admin: 11/07/18 10:02 Dose: 1 mg Gabapentin (Neurontin Cap(*)) 300 mg PO TID [facility] Last Admin: 11/07/18 20:16 Dose: 300 mg Heparin Sodium (Porcine) (Heparin Vial(*)) 5,000 units SUBCUT Q8HR [facility] Last Admin: 11/08/18 05:46 Dose: 5,000 units Hydroxychloroquine Sulfate (Plaquenil Tab*) 200 mg PO DAILY [facility] Last Admin: 11/07/18 10:03 Dose: 200 mg Levofloxacin/Dextrose (Levaquin 750 Mg Ivpremix(*)) 750 mg in 150 mls @ 100 mls /hr IVPB Q24H [facility]; Protocol Last Admin: 11/08/18 00:36 Dose: 100 mls/hr Levothyroxine Sodium (Synthroid Tab*) 112 mcg PO DAILY@0600 [facility] Last Admin: 11/08/18 05:47 Dose: 112 mcg Lidocaine (Lidoderm 5% Patch*) 1 patch TRANSDERM DAILY [facility] Last Admin: 11/07/18 10:02 Dose: 1 patch Lidocaine (Topicaine 4% Gel*) 1 applic TOPICAL TID [facility] Metoprolol Tartrate (Lopressor Tab*) 25 mg PO BID [facility] Last Admin: 11/07/18 20:16 Dose: 25 mg Pantoprazole Sodium (Protonix Tab*) 40 mg PO DAILY [facility] Last Admin: 11/07/18 10:02 Dose: 40 mg Pharmacy Profile Note (Lidocaine Patch Remove*) 1 note N/A 2100 [facility] Last Admin: 11/07/18 20:22 Dose: 1 note Pharmacy Profile Note (Buprenorph Patch Check Q Shift) 1 note FOLLOW UP 07, 1900 [facility] Last Admin: 11/08/18 06:52 Dose: 1 note Potassium Chloride (Klor Con Er Tab*) 10 meq PO BID [facility] Last Admin: 11/07/18 20:16 Dose: 10 meq Prochlorperazine Edisylate (Compazine Inj*) 5 mg IV Q6H PRN PRN Reason: NAUSEA/VOMITING Vital Signs - 8 hr 11/08/18 11/08/18 11/08/18 03:19 04:00 06:55 Temperature 98.4 F Pulse Rate 85 Respiratory 18 20 18 Rate Blood Pressure 149/72 (mmHg) O2 Sat by Pulse 100 Oximetry 11/08/18 07:47 Temperature 99.3 F Pulse Rate 97 Respiratory 14 Rate Blood Pressure 134/60 (mmHg) O2 Sat by Pulse 95 Oximetry Oxygen Devices in Use Now: Nasal Cannula Result Diagrams: 11/08/18 05:59 11/08/18 05:59 Additional Lab and Data: Lab Results 11/06/18 11/06/18 11/06/18 Range/Units 23:35 23:37 23:37 WBC 9.1 (3.5-10.8) 10^3/uL RBC 4.07 (3.70-4.87) 10^6 /uL Hgb 10.8 L (12.0-16.0) g/dL Hct 34 L (35-47) % MCV 82 (80-97) fL MCH 27 (27-31) pg MCHC 32 (31-36) g/dL RDW 17 H (10-15) % Plt Count 238 (150-450) 10^3/uL MPV 8.8 (7.4-10.4) fL Neut % (Auto) 84.6 % Lymph % (Auto) 6.2 % [place] % (Auto) 6.9 % Eos % (Auto) 1.4 % Baso % (Auto) 0.9 % Absolute Neuts (auto) 7.7 (1.5-7.7) 10^3/ul Absolute Lymphs (auto) 0.6 L (1.0-4.8) 10^3/ul Absolute Monos (auto) 0.6 (0-0.8) 10^3/ul Absolute Eos (auto) 0.1 (0-0.6) 10^3/ul Absolute Basos (auto) 0.1 (0-0.2) 10^3/ul Absolute Nucleated RBC 0.0 10^3/ul Nucleated RBC % 0.0 INR (Anticoag Therapy) 1.05 (0.82-1.09) ABG pH 7.39 (7.35-7.45) ABG pCO2 37 (35-45) mmHg ABG pO2 58 L* (80-100) mmHg ABG HCO3 23.0 (19-31) mmol/L ABG O2 Saturation 91.0 L (94.0-98.0) % ABG Base Excess -2.2 L (-2.0-2.0) mmol/L Microbiology and Other Data: Microbiology 11/07/18 00:13 Aerobic Blood Culture - Preliminary Blood Venous No Growth Day 1 Anaerobic Blood Culture - Preliminary No Growth Day 1 11/07/18 00:13 Aerobic Blood Culture - Preliminary Blood Venous No Growth Day 1 Anaerobic Blood Culture - Preliminary No Growth Day 1 11/07/18 18:50 Legionella Urinary Antigen - Final Urine Negative Legionella Antigen Streptococcus pneumoniae Ag Screen - Final Negative S. pneumo Antigen 11/07/18 01:35 Nasal Screen MRSA (PCR) - Final Nasal Mrsa Not Detected Assess/Plan/Problems-Billing Assessment: Ms. Stuart is a 73 years old lady with a background of rheumatoid arthritis, osteoarthritis, coronary artery disease, status post [place], hypertension, hypothjyroidism, who presented to ED for worsening cough and hemoptysis. With her symptoms of cough and hemoptysis, her elevated WBC and CRP, infiltrate on right middle and lower lobe in CXR, she is certainly having a community acquired pneumonia. She didn't have any fever, hypotension, kidney injury at this moment, although lactate is midly elevated, her penumonia is considering mid-moderate. But again, this could be due to her immunosuppressant state so she couldn't mount SIRS response as normal people. We are treating for CAP with levofloxacin in view of allergy, and will monitor how she responds to this treatment. Status and Disposition: Still inpatient medicine
[2018-11-08] MEDS: Lidocaine PATCH 5%* 1 PATCH TRANSDERM SCH (09:57)
[2018-11-08] MEDS: Calcium/Vitamin D TAB 250/125* TAB PO SCH ×2 (09:58→21:31)
[2018-11-08] MEDS: Gabapentin CAP(*) 300 MG PO SCH ×3 (09:58→21:31)
[2018-11-08] MEDS: Pantoprazole TAB * 40 MG TAB PO SCH (09:58)
[2018-11-08] MEDS: Hydroxychloroquine TAB* 200 MG PO SCH (09:58)
[2018-11-08] MEDS: Lidocaine 4% GEL* 10 GM TUBE TOPICAL SCH ×3 (09:58→21:35)
[2018-11-08] MEDS: Potassium Chlor TAB* 10 MEQ TAB.ER PO SCH ×2 (09:58→21:30)
[2018-11-08] MEDS: DULoxetine DR CAP* 20 MG CAP.DR PO SCH (09:58)
[2018-11-08] MEDS: Metoprolol Tartrate TAB* 25 MG PO SCH (09:58)
[2018-11-08] MEDS: Aspirin EC TAB* 81 MG TAB.EC PO SCH (09:58)
[2018-11-08] MEDS: Atorvastatin* 40 MG TAB PO SCH (09:58)
[2018-11-08] MEDS: Folic Acid TAB* 1 MG PO SCH (10:02)
[2018-11-08] MEDS: Acetaminophen TAB* 325 MG PO PRN (11:30)
[2018-11-08] MEDS: ALPRAZolam TAB* 0.25 MG PO PRN (11:30)
--- NOTE | 2018-11-08 15:33 | PN ---
Subjective Date of Service: 11/08/18 Interval History: Patient complained of pain up to 7-8/10 overnight, mainly on bilateral shoulder and left knee. He also complained of sleeplessness overnight as her neighbours were screaming the whole night. She felt better in breathing. Able to ambulate by herself without difficulties. Objective Active Medications: Acetaminophen (Tylenol Tab*) 650 mg PO Q6H PRN PRN Reason: mild pain/fever>100.4 Last Admin: 11/08/18 11:30 Dose: 650 mg Acetaminophen/Codeine Phosphate (Tylenol/Codeine 30 Mg Tab*) 2 tab PO BID PRN PRN Reason: Moderate Pain Last Admin: 11/08/18 04:00 Dose: 2 tab Al Hydrox/Mg Hydrox/Simethicone (Maalox Plus*) 5 ml PO Q4H PRN PRN Reason: HEARTBURN Albuterol (Ventolin Hfa Inhaler*) 2 puff INH QID PRN PRN Reason: SHORTNESS OF BREATH Albuterol/Ipratropium (Duoneb (Albuterol 2.5 Mg/Ipratropium 0.5 Mg)) 1 neb INH Q4H PRN PRN Reason: SOB/WHEEZING Alprazolam (Xanax Tab*) 0.25 mg PO BID PRN PRN Reason: ANXIETY Last Admin: 11/08/18 11:30 Dose: 0.25 mg Aspirin (Aspirin Ec Tab*) 81 mg PO DAILY [facility] Last Admin: 11/08/18 09:58 Dose: 81 mg Atorvastatin Calcium (Lipitor*) 40 mg PO DAILY [facility] Last Admin: 11/08/18 09:58 Dose: 40 mg Buprenorphine (Butrans 10 Mcg Patch(Nf)) 10 mcg TRANSDERM Q7D [facility] Last Admin: 11/07/18 20:17 Dose: 10 mcg Calcium/Vitamin D (Oscal D Tab 250/125*) 1 tab PO BID [facility] Last Admin: 11/08/18 09:58 Dose: 1 tab Cyclobenzaprine HCl (Flexeril Tab*) 5 mg PO BID PRN PRN Reason: SPASMS Duloxetine HCl (Cymbalta Cap*) 20 mg PO DAILY [facility] Last Admin: 11/08/18 09:58 Dose: 20 mg Famotidine (Pepcid Tab*) 20 mg PO BEDTIME [facility]; Protocol Last Admin: 11/07/18 20:16 Dose: 20 mg Folic Acid (Folvite Tab*) 1 mg PO DAILY [facility] Last Admin: 11/08/18 10:02 Dose: 1 mg Gabapentin (Neurontin Cap(*)) 300 mg PO TID [facility] Last Admin: 11/08/18 13:20 Dose: 300 mg Heparin Sodium (Porcine) (Heparin Vial(*)) 5,000 units SUBCUT Q8HR [facility] Last Admin: 11/08/18 13:20 Dose: 5,000 units Hydroxychloroquine Sulfate (Plaquenil Tab*) 200 mg PO DAILY [facility] Last Admin: 11/08/18 09:58 Dose: 200 mg Levofloxacin/Dextrose (Levaquin 750 Mg Ivpremix(*)) 750 mg in 150 mls @ 100 mls /hr IVPB Q24H [facility]; Protocol Last Admin: 11/08/18 00:36 Dose: 100 mls/hr Levothyroxine Sodium (Synthroid Tab*) 112 mcg PO DAILY@0600 [facility] Last Admin: 11/08/18 05:47 Dose: 112 mcg Lidocaine (Lidoderm 5% Patch*) 1 patch TRANSDERM DAILY [facility] Last Admin: 11/08/18 09:57 Dose: 1 patch Lidocaine (Topicaine 4% Gel*) 1 applic TOPICAL TID [facility] Last Admin: 11/08/18 13:21 Dose: 1 applic Metoprolol Tartrate (Lopressor Tab*) 25 mg PO BID [facility] Last Admin: 11/08/18 09:58 Dose: 25 mg Pantoprazole Sodium (Protonix Tab*) 40 mg PO DAILY [facility] Last Admin: 11/08/18 09:58 Dose: 40 mg Pharmacy Profile Note (Lidocaine Patch Remove*) 1 note N/A 2100 [facility] Last Admin: 11/07/18 20:22 Dose: 1 note Pharmacy Profile Note (Buprenorph Patch Check Q Shift) 1 note FOLLOW UP 0700, 1900 [facility] Last Admin: 11/08/18 06:52 Dose: 1 note Potassium Chloride (Klor Con Er Tab*) 10 meq PO BID [facility] Last Admin: 11/08/18 09:58 Dose: 10 meq Prochlorperazine Edisylate (Compazine Inj*) 5 mg IV Q6H PRN PRN Reason: NAUSEA/VOMITING Last Admin: 11/08/18 11:31 Dose: 5 mg Vital Signs - 8 hr 11/08/18 11/08/18 11/08/18 07:47 08:00 09:58 Temperature 99.3 F Pulse Rate 97 Respiratory 14 14 19 Rate Blood Pressure 134/60 (mmHg) O2 Sat by Pulse 95 Oximetry 11/08/18 11/08/18 11/08/18 10:49 11:30 11:58 Temperature 99.1 F Pulse Rate 110 Respiratory 22 19 17 Rate Blood Pressure 157/80 (mmHg) O2 Sat by Pulse 99 Oximetry 11/08/18 11/08/18 13:20 13:30 Temperature Pulse Rate Respiratory 16 16 Rate Blood Pressure (mmHg) O2 Sat by Pulse Oximetry Oxygen Devices in Use Now: Nasal Cannula Exam: Patient is well, alert. heart: normal S1 S2 lung: decreased crackles on right lower zone compared with yesterday, left basal crackles same as yesterday. abdomen: soft, non tender. LL: no swelling Result Diagrams: 11/08/18 05:59 11/08/18 05:59 Assess/Plan/Problems-Billing Assessment: - Patient Problems (1) Community acquired pneumonia Current Visit: Yes Status: Acute Code(s): J18.9 - PNEUMONIA, UNSPECIFIED ORGANISM SNOMED Code(s): 781012220 Comment: Continue iv levofloxacin, plan for 7 days in total wean down O2 nasal canula, keep spO2> 92% trace strep peumonia, legionella result (2) Rheumatoid arthritis Current Visit: Yes Status: Acute Code(s): M06.9 - RHEUMATOID ARTHRITIS, UNSPECIFIED SNOMED Code(s): 35200661 Comment: on MTX and hydroxychloroquine, we hold off Methotrexate for now due to infection. (3) Hypertension Current Visit: Yes Status: Acute Code(s): I10 - ESSENTIAL (PRIMARY) HYPERTENSION SNOMED Code(s): 74467496 Comment: - old med include hydrochlothiazide, verapamil, metoprolol for hypertension - bp lowish since admission, stop hydrochlothiazide, verapamil, decrease metoprol to 25mg bid for now - put on NS for bp and hydration purpose - watch bp closely (4) Hypothyroidism Current Visit: Yes Status: Acute Code(s): E03.9 - HYPOTHYROIDISM, UNSPECIFIED SNOMED Code(s): 73277469 Comment: Continue old dose of levothyroidism (5) Osteoarthritis Current Visit: Yes Status: Acute Code(s): M19.90 - UNSPECIFIED OSTEOARTHRITIS, UNSPECIFIED SITE SNOMED Code(s): 424293061 Comment: not well controlled pain despite multiple med, see details under the problem joint pain (6) Coronary artery disease Current Visit: Yes Status: Acute Code(s): I25.10 - ATHSCL HEART DISEASE OF [place] CORONARY ARTERY W/O ANG PCTRS SNOMED Code(s): 27468583 Comment: on aspirin, statin, metoprolol (7) Joint pain Current Visit: Yes Status: Acute Code(s): M25.50 - PAIN IN UNSPECIFIED JOINT SNOMED Code(s): 71888629 Comment: old pain med: ibuprofen 400mg q8h, acetaminophen/codeine 30mg tab, buprenorhine 10mcg patch, gabapentin, duolexetine - add on diclofenac gel, lidocaine patch and also lidocaine gel - continue ibuprofen and acetaminophen/codeine, gabapentin for now - consider heat/ice compression for joint pain Status and Disposition: Inpatient medicine for now. Plan for discharge home once able to wean off O2 Attestation Documenting Resident: Lizzy Wu Supervising Physician: Hiral Isbell Attestation: This service has been performed in part by a resident under the direction of a teaching physician.I, Hiral Isbell, performed the service, or was physically present during the critical, or sanchez portions of the service, furnished by the resident. I participated in the management of the patient.
[2018-11-08] MEDS: Metoprolol Tartrate TAB* 50 mg PO SCH (18:07)
[2018-11-08] MEDS: Famotidine TAB* 20 MG PO SCH (21:31)
[2018-11-08] MEDS: Lidocaine Patch REMOVE* 1 NOTE MISC SCH (21:35)
[2018-11-09] MEDS: Levofloxacin 750 MG IVPREMIX(* 750 MG/150 ML BAG IVPB SCH (01:32)
[2018-11-09] MEDS: Acetaminophen TAB* 325 MG PO PRN (04:22)
[2018-11-09] MEDS: Heparin VIAL(*) 5000 UNITS/ML VIAL (FIVE THOUSAND) SUBCUT SCH ×4 (05:23→20:59)
[2018-11-09] MEDS: Levothyroxine TAB* 112 MCG TAB PO SCH (05:23)
[2018-11-09] MEDS: Buprenorph Patch Check Q Shift 1 NOTE MISC FOLLOW UP SCH ×2 (07:14→19:36)
--- NOTE | 2018-11-09 07:31 | PN ---
Hospitalist Progress Note Date of Service: 11/09/18 HD # 4 on 11/09 Attending Assessment and Plan: 73F PMH RA on MTX/Plaquenil, chronic pain on Butrans, ostomy status from prior diverticulitis, anxeity and depression on benzo, HTN, hypothyroid, CAD s/p distant [place], heart murmur with recent Echo showing Left Ventricular Hypertrophy w DYNAMIC LVOT who presented with cough found to have RLL PNA, hypoxic resp failure. 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
[2018-11-09] MEDS: Lidocaine PATCH 5%* 1 PATCH TRANSDERM SCH (09:53)
[2018-11-09] MEDS: Aspirin EC TAB* 81 MG TAB.EC PO SCH (09:57)
[2018-11-09] MEDS: Potassium Chlor TAB* 10 MEQ TAB.ER PO SCH ×2 (09:58→20:12)
[2018-11-09] MEDS: DULoxetine DR CAP* 20 MG CAP.DR PO SCH (09:58)
[2018-11-09] MEDS: Calcium/Vitamin D TAB 250/125* TAB PO SCH ×2 (09:59→20:13)
[2018-11-09] MEDS: Metoprolol Tartrate TAB* 50 mg PO SCH ×2 (09:59→20:13)
[2018-11-09] MEDS: Gabapentin CAP(*) 300 MG PO SCH ×3 (10:00→20:12)
[2018-11-09] MEDS: Folic Acid TAB* 1 MG PO SCH (10:00)
[2018-11-09] MEDS: Hydroxychloroquine TAB* 200 MG PO SCH (10:00)
[2018-11-09] MEDS: Verapamil SR CAP* 180 MG PO SCH (10:00)
[2018-11-09] MEDS: Pantoprazole TAB * 40 MG TAB PO SCH (10:00)
[2018-11-09] MEDS: Atorvastatin* 40 MG TAB PO SCH (10:01)
[2018-11-09] MEDS: Levofloxacin TAB* 750 MG PO SCH (11:20)
[2018-11-09] MEDS: ALPRAZolam TAB* 0.25 MG PO PRN (11:21)
[2018-11-09] MEDS: Lidocaine 4% GEL* 10 GM TUBE TOPICAL SCH ×3 (11:22→20:59)
--- NOTE | 2018-11-09 16:01 | PN ---
Subjective Date of Service: 11/09/18 Interval History: Patient noticed improvement in breathing. O2 requirement was 1L during daytime but went up to 2L/min at night time. No more hemoptysis. Objective Active Medications: Acetaminophen (Tylenol Tab*) 650 mg PO Q6H PRN PRN Reason: mild pain/fever>100.4 Last Admin: 11/09/18 04:22 Dose: 650 mg Acetaminophen/Codeine Phosphate (Tylenol/Codeine 30 Mg Tab*) 2 tab PO BID PRN PRN Reason: Moderate Pain Last Admin: 11/08/18 21:38 Dose: 2 tab Al Hydrox/Mg Hydrox/Simethicone (Maalox Plus*) 5 ml PO Q4H PRN PRN Reason: HEARTBURN Albuterol (Ventolin Hfa Inhaler*) 2 puff INH QID PRN PRN Reason: SHORTNESS OF BREATH Albuterol/Ipratropium (Duoneb (Albuterol 2.5 Mg/Ipratropium 0.5 Mg)) 1 neb INH Q4H PRN PRN Reason: SOB/WHEEZING Alprazolam (Xanax Tab*) 0.25 mg PO BID PRN PRN Reason: ANXIETY Last Admin: 11/09/18 11:21 Dose: 0.25 mg Aspirin (Aspirin Ec Tab*) 81 mg PO DAILY [facility] Last Admin: 11/09/18 09:57 Dose: 81 mg Atorvastatin Calcium (Lipitor*) 40 mg PO DAILY [facility] Last Admin: 11/09/18 10:01 Dose: 40 mg Buprenorphine (Butrans 10 Mcg Patch(Nf)) 10 mcg TRANSDERM Q7D [facility] Last Admin: 11/07/18 20:17 Dose: 10 mcg Calcium/Vitamin D (Oscal D Tab 250/125*) 1 tab PO BID [facility] Last Admin: 11/09/18 09:59 Dose: 1 tab Cyclobenzaprine HCl (Flexeril Tab*) 5 mg PO BID PRN PRN Reason: SPASMS Duloxetine HCl (Cymbalta Cap*) 20 mg PO DAILY [facility] Last Admin: 11/09/18 09:58 Dose: 20 mg Famotidine (Pepcid Tab*) 20 mg PO BEDTIME [facility]; Protocol Last Admin: 11/08/18 21:31 Dose: 20 mg Folic Acid (Folvite Tab*) 1 mg PO DAILY [facility] Last Admin: 11/09/18 10:00 Dose: 1 mg Gabapentin (Neurontin Cap(*)) 300 mg PO TID [facility] Last Admin: 11/09/18 14:50 Dose: 300 mg Heparin Sodium (Porcine) (Heparin Vial(*)) 5,000 units SUBCUT Q8HR [facility] Last Admin: 11/09/18 14:50 Dose: 5,000 units Hydroxychloroquine Sulfate (Plaquenil Tab*) 200 mg PO DAILY [facility] Last Admin: 11/09/18 10:00 Dose: 200 mg Levofloxacin (Levaquin Tab*) 750 mg PO Q24H [facility]; Protocol Last Admin: 11/09/18 11:20 Dose: 750 mg Levothyroxine Sodium (Synthroid Tab*) 112 mcg PO DAILY@0600 [facility] Last Admin: 11/09/18 05:23 Dose: 112 mcg Lidocaine (Lidoderm 5% Patch*) 1 patch TRANSDERM DAILY [facility] Last Admin: 11/09/18 09:53 Dose: 1 patch Lidocaine (Topicaine 4% Gel*) 1 applic TOPICAL TID [facility] Last Admin: 11/09/18 14:50 Dose: Not Given Metoprolol Tartrate (Lopressor Tab*) 50 mg PO BID [facility] Last Admin: 11/09/18 09:59 Dose: 50 mg Pantoprazole Sodium (Protonix Tab*) 40 mg PO DAILY [facility] Last Admin: 11/09/18 10:00 Dose: 40 mg Pharmacy Profile Note (Lidocaine Patch Remove*) 1 note N/A 2100 [facility] Last Admin: 11/08/18 21:35 Dose: 1 note Pharmacy Profile Note (Buprenorph Patch Check Q Shift) 1 note FOLLOW UP 0700, 1900 [facility] Last Admin: 11/09/18 07:14 Dose: 1 note Potassium Chloride (Klor Con Er Tab*) 10 meq PO BID [facility] Last Admin: 11/09/18 09:58 Dose: 10 meq Prochlorperazine Edisylate (Compazine Inj*) 5 mg IV Q6H PRN PRN Reason: NAUSEA/VOMITING Last Admin: 11/08/18 11:31 Dose: 5 mg Verapamil HCl (Calan Sr Cap*) 180 mg PO DAILY [facility] Last Admin: 11/09/18 10:00 Dose: 180 mg Vital Signs - 8 hr 11/09/18 11/09/18 11/09/18 08:00 08:10 10:00 Temperature 97.9 F Pulse Rate 99 Respiratory 18 18 18 Rate Blood Pressure 125/57 (mmHg) O2 Sat by Pulse 94 Oximetry 11/09/18 11/09/18 11/09/18 11:21 11:53 14:50 Temperature 98.7 F Pulse Rate 87 Respiratory 18 24 18 Rate Blood Pressure 121/53 (mmHg) O2 Sat by Pulse 96 Oximetry Oxygen Devices in Use Now: Nasal Cannula Exam: Patient is well, alert. heart: normal S1 S2 lung: left basal crackles, minimal right basal crackles abdomen: soft, non tender. LL: no swelling Result Diagrams: 11/08/18 05:59 11/08/18 05:59 Assess/Plan/Problems-Billing Assessment: Ms. Stuart is a 73 years old lady with a background of rheumatoid arthritis on MTX and Plaquenil, osteoarthritis, coronary artery disease, status post [place], hypertension, hypothjyroidism, who presented to ED for worsening cough and hemoptysis, which was confirmed to be community acquired pneumonia. She is put on levofloxacin treatment in view of her multiple penicillin allergy, and planned for 7 days course. Her symptoms are resolving with current antibiotics. She would be ready for discharge once she weaned off O2. - Patient Problems (1) Community acquired pneumonia Current Visit: Yes Status: Acute Code(s): J18.9 - PNEUMONIA, UNSPECIFIED ORGANISM SNOMED Code(s): 741506236 Comment: Continue levofloxacin for 7 days in total wean down O2 nasal canula, keep spO2> 92% trace strep peumonia, legionella result (2) Rheumatoid arthritis Current Visit: Yes Status: Acute Code(s): M06.9 - RHEUMATOID ARTHRITIS, UNSPECIFIED SNOMED Code(s): 90076541 Comment: on MTX and hydroxychloroquine, we hold off Methotrexate for now due to infection. (3) Hypertension Current Visit: Yes Status: Acute Code(s): I10 - ESSENTIAL (PRIMARY) HYPERTENSION SNOMED Code(s): 02230245 Comment: - old med include hydrochlothiazide, verapamil, metoprolol for hypertension - bp lowish since admission, stop hydrochlothiazide, verapamil, decrease metoprol to 25mg bid initially, currently resolving (4) Hypothyroidism Current Visit: Yes Status: Acute Code(s): E03.9 - HYPOTHYROIDISM, UNSPECIFIED SNOMED Code(s): 78695293 Comment: Continue old dose of levothyroidism (5) Osteoarthritis Current Visit: Yes Status: Acute Code(s): M19.90 - UNSPECIFIED OSTEOARTHRITIS, UNSPECIFIED SITE SNOMED Code(s): 813708127 Comment: not well controlled pain despite multiple med, see details under the problem joint pain (6) Coronary artery disease Current Visit: Yes Status: Acute Code(s): I25.10 - ATHSCL HEART DISEASE OF [place] CORONARY ARTERY W/O ANG PCTRS SNOMED Code(s): 28253919 Comment: on aspirin, statin, metoprolol (7) Joint pain Current Visit: Yes Status: Acute Code(s): M25.50 - PAIN IN UNSPECIFIED JOINT SNOMED Code(s): 06119717 Comment: old pain med: ibuprofen 400mg q8h, acetaminophen/codeine 30mg tab, buprenorhine 10mcg patch, gabapentin, duolexetine - add on diclofenac gel, lidocaine patch and also lidocaine gel - continue ibuprofen and acetaminophen/codeine, gabapentin for now - consider heat/ice compression for joint pain Status and Disposition: Inpatient medicine for now. Plan for discharge home once able to wean off O2 Attestation Documenting Resident: Lizzy Wu Supervising Physician: Hiral Isbell Attestation: This service has been performed in part by a resident under the direction of a teaching physician.I, Hiral Isbell, performed the service, or was physically present during the critical, or sanchez portions of the service, furnished by the resident. I participated in the management of the patient.
[2018-11-09] MEDS: Famotidine TAB* 20 MG PO SCH (20:13)
[2018-11-09] MEDS: Acetaminophen / Codeine* #3 (300 MG/30 MG) TAB PO PRN (20:13)
[2018-11-09] MEDS: Lidocaine Patch REMOVE* 1 NOTE MISC SCH (20:59)
[2018-11-10] MEDS: Acetaminophen TAB* 325 MG PO PRN ×2 (03:04→14:33)
[2018-11-10] MEDS: Heparin VIAL(*) 5000 UNITS/ML VIAL (FIVE THOUSAND) SUBCUT SCH ×3 (05:54→21:02)
[2018-11-10] MEDS: Levothyroxine TAB* 112 MCG TAB PO SCH (05:55)
[2018-11-10] MEDS: Buprenorph Patch Check Q Shift 1 NOTE MISC FOLLOW UP SCH ×2 (06:59→18:50)
--- NOTE | 2018-11-10 07:09 | PN ---
Hospitalist Progress Note Date of Service: 11/10/18 HD # 5 on 11/10 Attending Assessment and Plan: 73F PMH RA on MTX/Plaquenil, chronic pain on Butrans, ostomy status from prior diverticulitis, anxeity and depression on benzo, HTN, hypothyroid, CAD s/p distant [place], heart murmur with recent Echo showing Left Ventricular Hypertrophy w DYNAMIC LVOT who presented with cough found to have RLL PNA, hypoxic resp failure. 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
[2018-11-10] MEDS: Lidocaine PATCH 5%* 1 PATCH TRANSDERM SCH (09:23)
[2018-11-10] MEDS ORDERED: Furosemide TAB* 40 MG PO ONE (09:23)
[2018-11-10] MEDS: Lidocaine 4% GEL* 10 GM TUBE TOPICAL SCH ×3 (09:32→21:02)
[2018-11-10] MEDS: Aspirin EC TAB* 81 MG TAB.EC PO SCH (09:38)
[2018-11-10] MEDS: Calcium/Vitamin D TAB 250/125* TAB PO SCH ×2 (09:38→21:03)
[2018-11-10] MEDS: Gabapentin CAP(*) 300 MG PO SCH ×3 (09:38→21:03)
[2018-11-10] MEDS: Pantoprazole TAB * 40 MG TAB PO SCH (09:38)
[2018-11-10] MEDS: Levofloxacin TAB* 750 MG PO SCH (09:39)
[2018-11-10] MEDS: DULoxetine DR CAP* 20 MG CAP.DR PO SCH (09:39)
[2018-11-10] MEDS: Verapamil SR CAP* 180 MG PO SCH (09:39)
[2018-11-10] MEDS: Potassium Chlor TAB* 10 MEQ TAB.ER PO SCH ×2 (09:39→21:02)
[2018-11-10] MEDS: Atorvastatin* 40 MG TAB PO SCH (09:39)
[2018-11-10] MEDS: Folic Acid TAB* 1 MG PO SCH (09:39)
[2018-11-10] MEDS: Hydroxychloroquine TAB* 200 MG PO SCH (09:39)
[2018-11-10] MEDS: Metoprolol Tartrate TAB* 50 mg PO SCH ×2 (09:40→21:02)
[2018-11-10] MEDS: ALPRAZolam TAB* 0.25 MG PO PRN (12:05)
--- NOTE | 2018-11-10 14:49 | PN ---
Subjective Date of Service: 11/10/18 Interval History: 73 y/o PMH RA and MTX and plaquenil, chronic pain on Butrans, anxiety, derpression, HTN, hypothyroid, CAD dsitant [place]. She found out to have hypoxia resp failure caused by right middle and lower zone penumonia.She was started on levaquin, and she contiued to imrpvoe. Objective Active Medications: Acetaminophen (Tylenol Tab*) 650 mg PO Q6H PRN PRN Reason: mild pain/fever>100.4 Last Admin: 11/10/18 14:33 Dose: 650 mg Acetaminophen/Codeine Phosphate (Tylenol/Codeine 30 Mg Tab*) 2 tab PO BID PRN PRN Reason: Moderate Pain Last Admin: 11/09/18 20:13 Dose: 2 tab Al Hydrox/Mg Hydrox/Simethicone (Maalox Plus*) 5 ml PO Q4H PRN PRN Reason: HEARTBURN Albuterol (Ventolin Hfa Inhaler*) 2 puff INH QID PRN PRN Reason: SHORTNESS OF BREATH Albuterol/Ipratropium (Duoneb (Albuterol 2.5 Mg/Ipratropium 0.5 Mg)) 1 neb INH Q4H PRN PRN Reason: SOB/WHEEZING Alprazolam (Xanax Tab*) 0.25 mg PO BID PRN PRN Reason: ANXIETY Last Admin: 11/10/18 12:05 Dose: 0.25 mg Aspirin (Aspirin Ec Tab*) 81 mg PO DAILY [facility] Last Admin: 11/10/18 09:38 Dose: 81 mg Atorvastatin Calcium (Lipitor*) 40 mg PO DAILY [facility] Last Admin: 11/10/18 09:39 Dose: 40 mg Buprenorphine (Butrans 10 Mcg Patch(Nf)) 10 mcg TRANSDERM Q7D [facility] Last Admin: 11/07/18 20:17 Dose: 10 mcg Calcium/Vitamin D (Oscal D Tab 250/125*) 1 tab PO BID [facility] Last Admin: 11/10/18 09:38 Dose: 1 tab Cyclobenzaprine HCl (Flexeril Tab*) 5 mg PO BID PRN PRN Reason: SPASMS Duloxetine HCl (Cymbalta Cap*) 20 mg PO DAILY [facility] Last Admin: 11/10/18 09:39 Dose: 20 mg Famotidine (Pepcid Tab*) 20 mg PO BEDTIME [facility]; Protocol Last Admin: 11/09/18 20:13 Dose: 20 mg Folic Acid (Folvite Tab*) 1 mg PO DAILY [facility] Last Admin: 11/10/18 09:39 Dose: 1 mg Gabapentin (Neurontin Cap(*)) 300 mg PO TID [facility] Last Admin: 11/10/18 14:33 Dose: 300 mg Heparin Sodium (Porcine) (Heparin Vial(*)) 5,000 units SUBCUT Q8HR [facility] Last Admin: 11/10/18 14:33 Dose: 5,000 units Hydrochlorothiazide (Hydrodiuril Tab*) 25 mg PO DAILY [facility] Hydroxychloroquine Sulfate (Plaquenil Tab*) 200 mg PO DAILY [facility] Last Admin: 11/10/18 09:39 Dose: 200 mg Levofloxacin (Levaquin Tab*) 750 mg PO Q24H [facility]; Protocol Last Admin: 11/10/18 09:39 Dose: 750 mg Levothyroxine Sodium (Synthroid Tab*) 112 mcg PO DAILY@0600 [facility] Last Admin: 11/10/18 05:55 Dose: 112 mcg Lidocaine (Lidoderm 5% Patch*) 1 patch TRANSDERM DAILY [facility] Last Admin: 11/10/18 09:23 Dose: 1 patch Lidocaine (Topicaine 4% Gel*) 1 applic TOPICAL TID [facility] Last Admin: 11/10/18 14:34 Dose: 1 applic Metoprolol Tartrate (Lopressor Tab*) 50 mg PO BID [facility] Last Admin: 11/10/18 09:40 Dose: 50 mg Pantoprazole Sodium (Protonix Tab*) 40 mg PO DAILY [facility] Last Admin: 11/10/18 09:38 Dose: 40 mg Pharmacy Profile Note (Lidocaine Patch Remove*) 1 note N/A 2100 [facility] Last Admin: 11/09/18 20:59 Dose: 1 note Pharmacy Profile Note (Buprenorph Patch Check Q Shift) 1 note FOLLOW UP 0700, 1900 [facility] Last Admin: 11/10/18 06:59 Dose: 1 note Potassium Chloride (Klor Con Er Tab*) 10 meq PO BID [facility] Last Admin: 11/10/18 09:39 Dose: 10 meq Prochlorperazine Edisylate (Compazine Inj*) 5 mg IV Q6H PRN PRN Reason: NAUSEA/VOMITING Last Admin: 11/08/18 11:31 Dose: 5 mg Verapamil HCl (Calan Sr Cap*) 180 mg PO DAILY [facility] Last Admin: 11/10/18 09:39 Dose: 180 mg Vital Signs - 8 hr 11/10/18 11/10/18 11/10/18 07:15 09:00 09:38 Temperature 96.9 F Pulse Rate 78 Respiratory 16 18 20 Rate Blood Pressure 125/54 (mmHg) O2 Sat by Pulse 92 Oximetry 11/10/18 11/10/18 11/10/18 11:35 12:00 12:05 Temperature Pulse Rate Respiratory 18 16 Rate Blood Pressure (mmHg) O2 Sat by Pulse 80 Oximetry 11/10/18 11/10/18 14:32 14:33 Temperature 99.4 F Pulse Rate Respiratory 18 Rate Blood Pressure (mmHg) O2 Sat by Pulse Oximetry Oxygen Devices in Use Now: Nasal Cannula Result Diagrams: 11/08/18 05:59 11/08/18 05:59 Assess/Plan/Problems-Billing Assessment: Ms. Stuart is a 73 years old lady with a background of rheumatoid arthritis on MTX and Plaquenil, osteoarthritis, coronary artery disease, status post [place], hypertension, hypothjyroidism, who presented to ED for worsening cough and hemoptysis, which was confirmed to be community acquired pneumonia. She is put on levofloxacin treatment in view of her multiple penicillin allergy, and planned for 7 days course. Her symptoms are resolving with current antibiotics. She would be ready for discharge once she weaned off O2. - Patient Problems (1) Community acquired pneumonia Current Visit: Yes Status: Acute Code(s): J18.9 - PNEUMONIA, UNSPECIFIED ORGANISM SNOMED Code(s): 357582018 Comment: Continue levofloxacin for 7 days in total wean down O2 nasal canula, keep spO2> 92% trace strep peumonia, legionella result (2) Rheumatoid arthritis Current Visit: Yes Status: Acute Code(s): M06.9 - RHEUMATOID ARTHRITIS, UNSPECIFIED SNOMED Code(s): 24724324 Comment: on MTX and hydroxychloroquine, we hold off Methotrexate for now due to infection. (3) Hypertension Current Visit: Yes Status: Acute Code(s): I10 - ESSENTIAL (PRIMARY) HYPERTENSION SNOMED Code(s): 60029120 Comment: - old med include hydrochlothiazide, verapamil, metoprolol for hypertension - bp lowish since admission, stop hydrochlothiazide, verapamil, decrease metoprol to 25mg bid initially, currently resolved over (4) Hypothyroidism Current Visit: Yes Status: Acute Code(s): E03.9 - HYPOTHYROIDISM, UNSPECIFIED SNOMED Code(s): 56423785 Comment: Continue old dose of levothyroidism (5) Osteoarthritis Current Visit: Yes Status: Acute Code(s): M19.90 - UNSPECIFIED OSTEOARTHRITIS, UNSPECIFIED SITE SNOMED Code(s): 415262482 Comment: not well controlled pain despite multiple med, see details under the problem joint pain (6) Coronary artery disease Current Visit: Yes Status: Acute Code(s): I25.10 - ATHSCL HEART DISEASE OF [place] CORONARY ARTERY W/O ANG PCTRS SNOMED Code(s): 09997206 Comment: on aspirin, statin, metoprolol (7) Joint pain Current Visit: Yes Status: Acute Code(s): M25.50 - PAIN IN UNSPECIFIED JOINT SNOMED Code(s): 66055324 Comment: old pain med: ibuprofen 400mg q8h, acetaminophen/codeine 30mg tab, buprenorhine 10mcg patch, gabapentin, duolexetine - add on diclofenac gel, lidocaine patch and also lidocaine gel - continue ibuprofen and acetaminophen/codeine, gabapentin for now - consider heat/ice compression for joint pain Status and Disposition: Inpatient medicine for now. Plan for discharge home once able to wean off O2 Attestation Documenting Resident: Lizzy Wu Supervising Physician: Hiral Isbell Attestation: This service has been performed in part by a resident under the direction of a teaching physician.I, Hiral Isbell, performed the service, or was physically present during the critical, or sanchez portions of the service, furnished by the resident. I participated in the management of the patient.
[2018-11-10] MEDS: Famotidine TAB* 20 MG PO SCH (21:03)
[2018-11-10] MEDS: Lidocaine Patch REMOVE* 1 NOTE MISC SCH (21:04)
--- NOTE | 2018-11-10 23:05 | DS ---
CC: Cynthia Ortega MD * DISCHARGE SUMMARY: DATE OF ADMISSION: 11/06/18 DATE OF DISCHARGE: 11/12/18 PRIMARY CARE PROVIDER: Cynthia Ortega MD. DISPOSITION AT THE TIME OF DISCHARGE: Stable to return to prior place of residence which is [place]. PRIMARY DIAGNOSES: 1. Right lower lobe pneumonia. 2. Hypoxic respiratory failure. SECONDARY DIAGNOSES: 1. Rheumatoid arthritis, on methotrexate and Plaquenil. 2. Chronic pain, on opiate pain medication. 3. Ostomy status from prior diverticulitis. 4. Anxiety and depression, on chronic benzodiazepines. 5. Hypertension. 6. Hypothyroidism. 7. Coronary artery disease, status post distant myocardial infarction. 8. Heart murmur, found to be from hypertrophic cardiomyopathy with dynamic left ventricular outflow tract obstruction. MEDICATIONS AT THE TIME OF DISCHARGE: 1. Acetaminophen-codeine 2 tabs p.o. b.i.d., codeine being 30 mg tab. 2. Mylanta 5 mL q.4 hours p.r.n. 3. Albuterol inhaler 2 puffs inhaled 4 times a day p.r.n. 4. Alprazolam 0.25 mg p.o. b.i.d. 5. Aspirin 81 mg p.o. daily. 6. Buprenorphine patch 10 mcg q.7 days. 7. Calcium carbonate/vitamin D3 one tab p.o. b.i.d. 8. Cyclobenzaprine 5 mg p.o. b.i.d. p.r.n. 9. Duloxetine 20 mg p.o. daily. 10. Folic acid 1 mg p.o. daily. 11. Gabapentin 300 mg p.o. t.i.d. 12. Hydrochlorothiazide 25 mg p.o. daily. 13. Plaquenil 200 mg p.o. daily. 14. Levothyroxine 112 mcg p.o. daily. 15. Prednsione 40mg PO 1 tab by mouth for 3 days after discharge 16. Metoprolol tartrate 50 mg p.o. b.i.d. 17. Omeprazole 20 mg p.o. daily. 18. Potassium chloride 10 mEq p.o. b.i.d. 19. Ranitidine 150 mg p.o. q.h.s. 20. Verapamil SR 180 mg p.o. daily. 21. Diclofenac gel 1 application topical t.i.d. p.r.n. 22. Ibuprofen 400 mg p.o. q.8 hours p.r.n. 23. Methotrexate 5 mg p.o. q.7 days. 24. Nabumetone 500 mg p.o. t.i.d. Medication changes on this hospitalization include addition of prednisone for 3 days after discharge HOSPITAL COURSE AND HISTORY OF PRESENT ILLNESS: A 73-year-old female with the above past medical history who presented to the emergency room with cough and malaise and was found to have a right lower lobe pneumonia and new oxygen requirement consistent with hypoxic respiratory failure, she is admitted to the hospital. Her hospital course by problems is as follows: 1. Community-acquired pneumonia with right lower lobe consolidation. The patient improved significantly with Levaquin. She has significant penicillin and cephalexin allergies which prevented her from getting ceftriaxone and azithromycin. She completed 7 days in hospital of antibitoics, and can follow up with primary care. She improved over the course of her stay on both exam and clinically. 2. Hypoxic respiratory failure. This is secondary to her new pneumonia. Diuresis was started on 11/10/18 in hopes to speed her oxygen weaning as she was bolused with fluids in the emergency room and possibly her heart murmur with left ventricular outflow obstruction caused mild accumulation of edema, she also was given prednsione 40mg starting 11/11 which helped immensely. She was able to be titrated off of oxygen safely and was able to transfer to her wheelchair without desaturating. She will go home on 3 more days of prednisone which are prescribed ot her in the hospital 3. Heart murmur. Reason echocardiogram showed a dynamic left ventricular outflow obstruction. She is on home verapamil and metoprolol which were continued and she is to follow up with primary care and installation drafter as needed. Significant component of heart failure was not thought to have contributed to her current presentation, although diuresis was started in hopes to aid her oxygen requirement. Decision to continue diuresis could be made at primary care level. 4. Chronic pain. Her home medications were continued. 5. Rheumatoid arthritis. Her methotrexate was held while in the hospital and can be resumed on discharge. Plaquenil was continued. 6. Hypertension. Controlled on home meds. 7. Hypothyroidism. Her home dose was continued. 8. Anxiety and depression. Continued on her home meds. 9. Ostomy status. She had no changes or complications during this hospitalization. 10. DVT prophylaxis, was done with subcu heparin during this hospitalization. On the day of discharge, the patient is able to transfer herself to wheelchair which is her baseline functional status without desaturating. She is tolerating voiding freely. Vital signs have been stable. DIAGNOSTIC STUDIES/LAB DATA: Labs done on 11/08/18 show white blood cell count of 9.9, hemoglobin 9, hematocrit 27, platelets of 197. BMP shows sodium of 137 , potassium 4, chloride 105, carbon dioxide 23. BUN 17, creatinine 0.67. Lactic acid 1.5. Studies done during this hospitalization included a chest thorax CTA done on 11/07/18 which did not show PE; chest x-ray on 11/06/18, which shows pneumonia as described in the discharge summary. Physical exam on the day of discharge done per progress note and notable for mild crackles, but improved since exam. ITEMS TO FOLLOW UP ON STATUS POST DISCHARGE: 1. Community-acquired pneumonia. She was treated with 7 days with anitbitocs and has done well, she is discharged on prednisone. This course can be extended if primary care provider and facility feels this is needed per IDSA guidelines. 2. Heart murmur with what sounds like recent diagnosis of dynamic LVOT in the setting of (?) hypertrophic cardiomyopathy. This will deserve workup for primary care, and metoprolol and verapamil are indicated. We will not continue the patient on Lasix on discharge, as sometimes left ventricular outflow obstruction murmurs are volume dependent and a decision to manage volume status by primary care installation drafter can be done as outpatient. TIME SPENT: Forty-five minutes were spent in the planning of this discharge with over half of that spent directly at the bedside of the patient providing direct patient care. Plan of care discussed with the patient who agrees and knows to return to the emergency room if any new or worsening symptoms such as severe shortness of breath, fevers, or chest pain. If there are any questions about the care of this patient during this hospitalization, please do not hesitate to reach out to the hospitalist team at [facility] to answer all these questions. [id number]/CPS #: [id number] MTDD
[2018-11-11] MEDS: Acetaminophen / Codeine* #3 (300 MG/30 MG) TAB PO PRN ×2 (04:48→18:28)
[2018-11-11] MEDS: Levothyroxine TAB* 112 MCG TAB PO SCH (05:11)
[2018-11-11] MEDS: Heparin VIAL(*) 5000 UNITS/ML VIAL (FIVE THOUSAND) SUBCUT SCH ×3 (05:11→21:05)
[2018-11-11] MEDS ORDERED: Furosemide TAB* 40 MG PO ONE (06:23)
[2018-11-11 06:54] LABS: Hematocrit 30 % (35-47); Hemoglobin 9.8 g/dL (12.0-16.0); Mean Corpuscular HGB Conc 33 g/dL (31-36); Mean Corpuscular Hemoglobin 27 pg (27-31); Mean Corpuscular Volume 81 fL (80-97); Mean Platelet Volume 8.1 fL (7.4-10.4); Platelet Count 281 10^3/uL (150-450); Red Blood Count 3.65 10^6 /uL (3.70-4.87); Red Cell Distribution Width 17 % (10-15); White Blood Count 6.6 10^3/uL (3.5-10.8)
[2018-11-11 06:56] LABS: ABS Basophils 0.1 10^3/ul (0-0.2); ABS Eosinophils 0.4 10^3/ul (0-0.6); ABS Lymphocytes 1.3 10^3/ul (1.0-4.8); ABS Monocytes 0.7 10^3/ul (0-0.8); ABS Neutrophils 4.1 10^3/ul (1.5-7.7); Eosinophil % 5.9 %; Lymphocyte % 19.6 %
[2018-11-11 07:19] LABS: BUN/Creatinine Ratio 22.5 (8-20); Calcium 9.4 mg/dL (8.6-10.3); EGFR African American 97.9 (>60); EGFR Non-African American 80.9 (>60); Potassium 4.3 mmol/L (3.5-5.0)
--- NOTE | 2018-11-11 07:43 | PN ---
Hospitalist Progress Note Date of Service: 11/11/18 HD # 6 on 11/11 24 Hours Update: Had transient CP this AM, EKG and trop normal, resolved quickly with repositinoing. Eating, feeling well, now on RA. Attending Assessment and Plan: 73F PMH RA on MTX/Plaquenil, chronic pain on Butrans, ostomy status from prior diverticulitis, anxeity and depression on benzo, HTN, hypothyroid, CAD s/p distant LA, heart murmur with recent Echo showing Left Ventricular Hypertrophy w DYNAMIC LVOT who presented with cough found to have RLL PNA, hypoxic resp failure. #CAP: -Levaquin day / on 11/11 -Allergy to Cephalosporins -Continue to monitor, improving on exam and clinically #Hypoxic Resp failure: New O2 requirement, weaning, now on RA #Heart murmur: Old echo showed dynamic LVOT, on home verapamil and metoprolol, HCTZ to resume on dc #Chronic pain: Tylenol, topical, Buprenorphine patch #RA: Continue plaquenil, reasonable to hold MTX given active infxn, resume on d/ c #HTN: controlled on home meds, adding Lasix #Hypothyroid: home dose #Anxiety/Depression: home meds #Ostomy status: No changes 2/2 to old diveticular dz #DVT PPX: SQH #Code Status: Full #Dispo-consider d/c when O2 requirment is off, will trial today, tolerat >89%
[2018-11-11] MEDS: Buprenorph Patch Check Q Shift 1 NOTE MISC FOLLOW UP SCH ×2 (07:55→18:53)
[2018-11-11] MEDS: Morphine 4 MG/ML VIAL (1 ml) 4 MG/ML VIAL IV ONE ×2 (08:48→09:10)
[2018-11-11] MEDS: Aspirin EC TAB* 81 MG TAB.EC PO SCH (08:49)
[2018-11-11] MEDS: Folic Acid TAB* 1 MG PO SCH (08:49)
[2018-11-11] MEDS: Atorvastatin* 40 MG TAB PO SCH (08:49)
[2018-11-11] MEDS: Hydrochlorothiazide TAB* 25 MG PO SCH (08:49)
[2018-11-11] MEDS: Gabapentin CAP(*) 300 MG PO SCH ×3 (08:49→20:38)
[2018-11-11] MEDS: DULoxetine DR CAP* 20 MG CAP.DR PO SCH (08:49)
[2018-11-11] MEDS: Hydroxychloroquine TAB* 200 MG PO SCH (08:49)
[2018-11-11] MEDS: Calcium/Vitamin D TAB 250/125* TAB PO SCH ×2 (08:49→20:38)
[2018-11-11 09:03] LABS: Troponin I 0.01 ng/mL (<0.04)
[2018-11-11] MEDS ORDERED: Nitroglycerin TAB 0.4 MG* 0.4 MG TAB SL ONE (09:13)
[2018-11-11] MEDS: Pantoprazole TAB * 40 MG TAB PO SCH (09:45)
[2018-11-11] MEDS: Verapamil SR CAP* 180 MG PO SCH (09:45)
[2018-11-11] MEDS: Lidocaine PATCH 5%* 1 PATCH TRANSDERM SCH (09:45)
[2018-11-11] MEDS: Levofloxacin TAB* 750 MG PO SCH (09:46)
[2018-11-11] MEDS: Metoprolol Tartrate TAB* 50 mg PO SCH ×2 (09:47→20:39)
[2018-11-11] MEDS: Potassium Chlor TAB* 10 MEQ TAB.ER PO SCH ×2 (09:57→20:39)
[2018-11-11] MEDS: Lidocaine 4% GEL* 10 GM TUBE TOPICAL SCH ×3 (09:57→20:35)
[2018-11-11] MEDS: predniSONE TAB* 20 MG PO SCH (13:14)
--- NOTE | 2018-11-11 14:34 | PN ---
<Lizzy Wu - Last Filed: 11/11/18 14:28> Subjective Date of Service: 11/11/18 Interval History: Patient had one episode of chest pain this morning. The pain was in left and central area,sharp pain, radiating to jaw. Happened when he was sitting on the bed, claimed the pain was the same as she experienced during heart attack. EKG stat is normal sinus rhythm. It went away within 5 min. Patient's oxygen dropped to 80% when she was transferring to her chair today. Objective Active Medications: Acetaminophen (Tylenol Tab*) 650 mg PO Q6H PRN PRN Reason: mild pain/fever>100.4 Last Admin: 11/10/18 14:33 Dose: 650 mg Acetaminophen/Codeine Phosphate (Tylenol/Codeine 30 Mg Tab*) 2 tab PO BID PRN PRN Reason: Moderate Pain Last Admin: 11/11/18 04:48 Dose: 2 tab Al Hydrox/Mg Hydrox/Simethicone (Maalox Plus*) 5 ml PO Q4H PRN PRN Reason: HEARTBURN Albuterol (Ventolin Hfa Inhaler*) 2 puff INH QID PRN PRN Reason: SHORTNESS OF BREATH Albuterol/Ipratropium (Duoneb (Albuterol 2.5 Mg/Ipratropium 0.5 Mg)) 1 neb INH Q4H PRN PRN Reason: SOB/WHEEZING Alprazolam (Xanax Tab*) 0.25 mg PO BID PRN PRN Reason: ANXIETY Last Admin: 11/10/18 12:05 Dose: 0.25 mg Aspirin (Aspirin Ec Tab*) 81 mg PO DAILY [facility] Last Admin: 11/11/18 08:49 Dose: 81 mg Atorvastatin Calcium (Lipitor*) 40 mg PO DAILY [facility] Last Admin: 11/11/18 08:49 Dose: 40 mg Buprenorphine (Butrans 10 Mcg Patch(Nf)) 10 mcg TRANSDERM Q7D [facility] Last Admin: 11/07/18 20:17 Dose: 10 mcg Calcium/Vitamin D (Oscal D Tab 250/125*) 1 tab PO BID [facility] Last Admin: 11/11/18 08:49 Dose: 1 tab Cyclobenzaprine HCl (Flexeril Tab*) 5 mg PO BID PRN PRN Reason: SPASMS Duloxetine HCl (Cymbalta Cap*) 20 mg PO DAILY [facility] Last Admin: 11/11/18 08:49 Dose: 20 mg Famotidine (Pepcid Tab*) 20 mg PO BEDTIME [facility]; Protocol Last Admin: 11/10/18 21:03 Dose: 20 mg Folic Acid (Folvite Tab*) 1 mg PO DAILY [facility] Last Admin: 11/11/18 08:49 Dose: 1 mg Gabapentin (Neurontin Cap(*)) 300 mg PO TID [facility] Last Admin: 11/11/18 13:14 Dose: 300 mg Heparin Sodium (Porcine) (Heparin Vial(*)) 5,000 units SUBCUT Q8HR [facility] Last Admin: 11/11/18 13:15 Dose: 5,000 units Hydrochlorothiazide (Hydrodiuril Tab*) 25 mg PO DAILY [facility] Last Admin: 11/11/18 08:49 Dose: 25 mg Hydroxychloroquine Sulfate (Plaquenil Tab*) 200 mg PO DAILY [facility] Last Admin: 11/11/18 08:49 Dose: 200 mg Levofloxacin (Levaquin Tab*) 750 mg PO Q24H [facility]; Protocol Last Admin: 11/11/18 09:46 Dose: 750 mg Levothyroxine Sodium (Synthroid Tab*) 112 mcg PO DAILY@0600 [facility] Last Admin: 11/11/18 05:11 Dose: 112 mcg Lidocaine (Lidoderm 5% Patch*) 1 patch TRANSDERM DAILY [facility] Last Admin: 11/11/18 09:45 Dose: 1 patch Lidocaine (Topicaine 4% Gel*) 1 applic TOPICAL TID [facility] Last Admin: 11/11/18 09:57 Dose: 1 applic Metoprolol Tartrate (Lopressor Tab*) 50 mg PO BID [facility] Last Admin: 11/11/18 09:47 Dose: 50 mg Pantoprazole Sodium (Protonix Tab*) 40 mg PO DAILY [facility] Last Admin: 11/11/18 09:45 Dose: 40 mg Pharmacy Profile Note (Lidocaine Patch Remove*) 1 note N/A 2100 [facility] Last Admin: 11/10/18 21:04 Dose: 1 note Pharmacy Profile Note (Buprenorph Patch Check Q Shift) 1 note FOLLOW UP 0700, 1900 [facility] Last Admin: 11/11/18 07:55 Dose: 1 note Potassium Chloride (Klor Con Er Tab*) 10 meq PO BID [facility] Last Admin: 11/11/18 09:57 Dose: 10 meq Prednisone (Deltasone Tab*) 40 mg PO DAILY [facility] Last Admin: 11/11/18 13:14 Dose: 40 mg Prochlorperazine Edisylate (Compazine Inj*) 5 mg IV Q6H PRN PRN Reason: NAUSEA/VOMITING Last Admin: 11/08/18 11:31 Dose: 5 mg Verapamil HCl (Calan Sr Cap*) 180 mg PO DAILY [facility] Last Admin: 11/11/18 09:45 Dose: 180 mg Vital Signs - 8 hr 11/11/18 11/11/18 11/11/18 06:48 07:15 08:00 Temperature 97.9 F Pulse Rate 77 Respiratory 17 18 17 Rate Blood Pressure 110/51 (mmHg) O2 Sat by Pulse 92 Oximetry 11/11/18 11/11/18 11/11/18 08:49 11:00 13:14 Temperature Pulse Rate Respiratory 19 18 17 Rate Blood Pressure (mmHg) O2 Sat by Pulse Oximetry Oxygen Devices in Use Now: Nasal Cannula Exam: well, alert. Heart: normal S1S2 Lung: clear Abdomen: soft, tender no JVP elevation Result Diagrams: 11/11/18 06:46 11/11/18 06:46 Assess/Plan/Problems-Billing Assessment: Ms. Stuart is a 73 years old lady with a background of rheumatoid arthritis on MTX and Plaquenil, osteoarthritis, coronary artery disease, status post MT, hypertension, hypothjyroidism, who presented to ED for worsening cough and hemoptysis, which was confirmed to be community acquired pneumonia. She is put on levofloxacin treatment in view of her multiple penicillin allergy, and planned for 7 days course. Her symptoms are resolving with current antibiotics. She would be ready for discharge once she weaned off O2. - Patient Problems (1) Community acquired pneumonia Current Visit: Yes Status: Acute Code(s): J18.9 - PNEUMONIA, UNSPECIFIED ORGANISM SNOMED Code(s): 584300241 Comment: Continue levofloxacin for 7 days in total wean down O2 nasal canula, keep spO2> 92% trace strep peumonia, legionella result (2) Rheumatoid arthritis Current Visit: Yes Status: Acute Code(s): M06.9 - RHEUMATOID ARTHRITIS, UNSPECIFIED SNOMED Code(s): 85816116 Comment: on MTX and hydroxychloroquine, we hold off Methotrexate for now due to infection. (3) Hypertension Current Visit: Yes Status: Acute Code(s): I10 - ESSENTIAL (PRIMARY) HYPERTENSION SNOMED Code(s): 38304715 Comment: - old med include hydrochlothiazide, verapamil, metoprolol for hypertension - bp lowish since admission, stop hydrochlothiazide, verapamil, decrease metoprol to 25mg bid initially, currently resolved over (4) Hypothyroidism Current Visit: Yes Status: Acute Code(s): E03.9 - HYPOTHYROIDISM, UNSPECIFIED SNOMED Code(s): 26327186 Comment: Continue old dose of levothyroidism (5) Osteoarthritis Current Visit: Yes Status: Acute Code(s): M19.90 - UNSPECIFIED OSTEOARTHRITIS, UNSPECIFIED SITE SNOMED Code(s): 408672567 Comment: not well controlled pain despite multiple med, see details under the problem joint pain (6) Coronary artery disease Current Visit: Yes Status: Acute Code(s): I25.10 - ATHSCL HEART DISEASE OF [place] CORONARY ARTERY W/O ANG PCTRS SNOMED Code(s): 56934299 Comment: on aspirin, statin, metoprolol (7) Joint pain Current Visit: Yes Status: Acute Code(s): M25.50 - PAIN IN UNSPECIFIED JOINT SNOMED Code(s): 96083360 Comment: old pain med: ibuprofen 400mg q8h, acetaminophen/codeine 30mg tab, buprenorhine 10mcg patch, gabapentin, duolexetine - add on diclofenac gel, lidocaine patch and also lidocaine gel - continue ibuprofen and acetaminophen/codeine, gabapentin for now - consider heat/ice compression for joint pain Status and Disposition: Inpatient medicine for now. Plan for discharge tomorrow once successfily weaning off O2 Attestation Documenting Resident: Lizzy Wu Supervising Physician: Hiral Au Attestation: This service has been performed in part by a resident under the direction of a teaching physician.I, Hiral Au, performed the service, or was physically present during the critical, or sanchez portions of the service, furnished by the resident. I participated in the management of the patient. <Hiral Au - Last Filed: 11/11/18 16:22> Objective Active Medications: Acetaminophen (Tylenol Tab*) 650 mg PO Q6H PRN PRN Reason: mild pain/fever>100.4 Last Admin: 11/10/18 14:33 Dose: 650 mg Acetaminophen/Codeine Phosphate (Tylenol/Codeine 30 Mg Tab*) 2 tab PO BID PRN PRN Reason: Moderate Pain Last Admin: 11/11/18 04:48 Dose: 2 tab Al Hydrox/Mg Hydrox/Simethicone (Maalox Plus*) 5 ml PO Q4H PRN PRN Reason: HEARTBURN Albuterol (Ventolin Hfa Inhaler*) 2 puff INH QID PRN PRN Reason: SHORTNESS OF BREATH Albuterol/Ipratropium (Duoneb (Albuterol 2.5 Mg/Ipratropium 0.5 Mg)) 1 neb INH Q4H PRN PRN Reason: SOB/WHEEZING Alprazolam (Xanax Tab*) 0.25 mg PO BID PRN PRN Reason: ANXIETY Last Admin: 11/10/18 12:05 Dose: 0.25 mg Aspirin (Aspirin Ec Tab*) 81 mg PO DAILY [facility] Last Admin: 11/11/18 08:49 Dose: 81 mg Atorvastatin Calcium (Lipitor*) 40 mg PO DAILY [facility] Last Admin: 11/11/18 08:49 Dose: 40 mg Buprenorphine (Butrans 10 Mcg Patch(Nf)) 10 mcg TRANSDERM Q7D [facility] Last Admin: 11/07/18 20:17 Dose: 10 mcg Calcium/Vitamin D (Oscal D Tab 250/125*) 1 tab PO BID [facility] Last Admin: 11/11/18 08:49 Dose: 1 tab Cyclobenzaprine HCl (Flexeril Tab*) 5 mg PO BID PRN PRN Reason: SPASMS Duloxetine HCl (Cymbalta Cap*) 20 mg PO DAILY [facility] Last Admin: 11/11/18 08:49 Dose: 20 mg Famotidine (Pepcid Tab*) 20 mg PO BEDTIME [facility]; Protocol Last Admin: 11/10/18 21:03 Dose: 20 mg Folic Acid (Folvite Tab*) 1 mg PO DAILY [facility] Last Admin: 11/11/18 08:49 Dose: 1 mg Gabapentin (Neurontin Cap(*)) 300 mg PO TID [facility] Last Admin: 11/11/18 13:14 Dose: 300 mg Heparin Sodium (Porcine) (Heparin Vial(*)) 5,000 units SUBCUT Q8HR [facility] Last Admin: 11/11/18 13:15 Dose: 5,000 units Hydrochlorothiazide (Hydrodiuril Tab*) 25 mg PO DAILY [facility] Last Admin: 11/11/18 08:49 Dose: 25 mg Hydroxychloroquine Sulfate (Plaquenil Tab*) 200 mg PO DAILY [facility] Last Admin: 11/11/18 08:49 Dose: 200 mg Levofloxacin (Levaquin Tab*) 750 mg PO Q24H [facility]; Protocol Last Admin: 11/11/18 09:46 Dose: 750 mg Levothyroxine Sodium (Synthroid Tab*) 112 mcg PO DAILY@0600 [facility] Last Admin: 11/11/18 05:11 Dose: 112 mcg Lidocaine (Lidoderm 5% Patch*) 1 patch TRANSDERM DAILY [facility] Last Admin: 11/11/18 09:45 Dose: 1 patch Lidocaine (Topicaine 4% Gel*) 1 applic TOPICAL TID [facility] Last Admin: 11/11/18 15:35 Dose: 1 applic Metoprolol Tartrate (Lopressor Tab*) 50 mg PO BID [facility] Last Admin: 11/11/18 09:47 Dose: 50 mg Pantoprazole Sodium (Protonix Tab*) 40 mg PO DAILY [facility] Last Admin: 11/11/18 09:45 Dose: 40 mg Pharmacy Profile Note (Lidocaine Patch Remove*) 1 note N/A 2100 [facility] Last Admin: 11/10/18 21:04 Dose: 1 note Pharmacy Profile Note (Buprenorph Patch Check Q Shift) 1 note FOLLOW UP 0700, 1900 [facility] Last Admin: 11/11/18 07:55 Dose: 1 note Potassium Chloride (Klor Con Er Tab*) 10 meq PO BID [facility] Last Admin: 11/11/18 09:57 Dose: 10 meq Prednisone (Deltasone Tab*) 40 mg PO DAILY [facility] Last Admin: 11/11/18 13:14 Dose: 40 mg Prochlorperazine Edisylate (Compazine Inj*) 5 mg IV Q6H PRN PRN Reason: NAUSEA/VOMITING Last Admin: 11/08/18 11:31 Dose: 5 mg Verapamil HCl (Calan Sr Cap*) 180 mg PO DAILY [facility] Last Admin: 11/11/18 09:45 Dose: 180 mg Vital Signs - 8 hr 11/11/18 11/11/18 11/11/18 08:49 08:55 10:00 Temperature 97 F Pulse Rate 76 Respiratory 19 18 Rate Blood Pressure 125/62 (mmHg) O2 Sat by Pulse 90 95 Oximetry 11/11/18 11/11/18 11/11/18 11:00 11:30 13:14 Temperature 97.8 F Pulse Rate 96 Respiratory 18 18 17 Rate Blood Pressure 120/56 (mmHg) O2 Sat by Pulse 92 Oximetry 11/11/18 15:15 Temperature 98.5 F Pulse Rate 96 Respiratory 20 Rate Blood Pressure 118/53 (mmHg) O2 Sat by Pulse 94 Oximetry Result Diagrams: 11/11/18 06:46 11/11/18 06:46 Assess/Plan/Problems-Billing Assessment:
[2018-11-11] MEDS: Lidocaine Patch REMOVE* 1 NOTE MISC SCH (20:34)
[2018-11-11] MEDS: Famotidine TAB* 20 MG PO SCH (20:38)
[2018-11-12] MEDS: Acetaminophen / Codeine* #3 (300 MG/30 MG) TAB PO PRN ×2 (04:18→13:55)
[2018-11-12] MEDS: Levothyroxine TAB* 112 MCG TAB PO SCH (06:16)
[2018-11-12] MEDS: Heparin VIAL(*) 5000 UNITS/ML VIAL (FIVE THOUSAND) SUBCUT SCH ×2 (06:16→13:56)
[2018-11-12] MEDS: Buprenorph Patch Check Q Shift 1 NOTE MISC FOLLOW UP SCH (07:02)
--- NOTE | 2018-11-12 07:42 | PN ---
Subjective Date of Service: 11/12/18 Interval History: HD # 7 on 11/12 73F PMH RA on MTX/Plaquenil, chronic pain on Butrans, ostomy status from prior diverticulitis, anxeity and depression on benzo, HTN, hypothyroid, CAD s/p distant DE, heart murmur with recent Echo showing Left Ventricular Hypertrophy w DYNAMIC LVOT who presented with cough found to have RLL PNA, hypoxic resp failure. Overnight no acute events, VSS, still remains on NC, 1L NC, TRIALED OFF OXYGEN AND AMBULATING AT 90% Started pred yesterday No labs This morning says this is th ebest she has felt in this hosiptilization, moving better, breathing better and would like to trial off O2 and transfer. No CP no SOB mild cough no GI complaints. Objective Active Medications: Acetaminophen (Tylenol Tab*) 650 mg PO Q6H PRN PRN Reason: mild pain/fever>100.4 Last Admin: 11/10/18 14:33 Dose: 650 mg Acetaminophen/Codeine Phosphate (Tylenol/Codeine 30 Mg Tab*) 2 tab PO BID PRN PRN Reason: Moderate Pain Last Admin: 11/12/18 04:18 Dose: 2 tab Al Hydrox/Mg Hydrox/Simethicone (Maalox Plus*) 5 ml PO Q4H PRN PRN Reason: HEARTBURN Albuterol (Ventolin Hfa Inhaler*) 2 puff INH QID PRN PRN Reason: SHORTNESS OF BREATH Albuterol/Ipratropium (Duoneb (Albuterol 2.5 Mg/Ipratropium 0.5 Mg)) 1 neb INH Q4H PRN PRN Reason: SOB/WHEEZING Alprazolam (Xanax Tab*) 0.25 mg PO BID PRN PRN Reason: ANXIETY Last Admin: 11/10/18 12:05 Dose: 0.25 mg Aspirin (Aspirin Ec Tab*) 81 mg PO DAILY [facility] Last Admin: 11/11/18 08:49 Dose: 81 mg Atorvastatin Calcium (Lipitor*) 40 mg PO DAILY [facility] Last Admin: 11/11/18 08:49 Dose: 40 mg Buprenorphine (Butrans 10 Mcg Patch(Nf)) 10 mcg TRANSDERM Q7D [facility] Last Admin: 11/07/18 20:17 Dose: 10 mcg Calcium/Vitamin D (Oscal D Tab 250/125*) 1 tab PO BID [facility] Last Admin: 11/11/18 20:38 Dose: 1 tab Cyclobenzaprine HCl (Flexeril Tab*) 5 mg PO BID PRN PRN Reason: SPASMS Last Admin: 11/12/18 04:43 Dose: 5 mg Duloxetine HCl (Cymbalta Cap*) 20 mg PO DAILY [facility] Last Admin: 11/11/18 08:49 Dose: 20 mg Famotidine (Pepcid Tab*) 20 mg PO BEDTIME [facility]; Protocol Last Admin: 11/11/18 20:38 Dose: 20 mg Folic Acid (Folvite Tab*) 1 mg PO DAILY [facility] Last Admin: 11/11/18 08:49 Dose: 1 mg Gabapentin (Neurontin Cap(*)) 300 mg PO TID [facility] Last Admin: 11/11/18 20:38 Dose: 300 mg Heparin Sodium (Porcine) (Heparin Vial(*)) 5,000 units SUBCUT Q8HR [facility] Last Admin: 11/12/18 06:16 Dose: 5,000 units Hydrochlorothiazide (Hydrodiuril Tab*) 25 mg PO DAILY [facility] Last Admin: 11/11/18 08:49 Dose: 25 mg Hydroxychloroquine Sulfate (Plaquenil Tab*) 200 mg PO DAILY [facility] Last Admin: 11/11/18 08:49 Dose: 200 mg Levofloxacin (Levaquin Tab*) 750 mg PO Q24H [facility]; Protocol Last Admin: 11/11/18 09:46 Dose: 750 mg Levothyroxine Sodium (Synthroid Tab*) 112 mcg PO DAILY@0600 [facility] Last Admin: 11/12/18 06:16 Dose: 112 mcg Lidocaine (Lidoderm 5% Patch*) 1 patch TRANSDERM DAILY [facility] Last Admin: 11/11/18 09:45 Dose: 1 patch Lidocaine (Topicaine 4% Gel*) 1 applic TOPICAL TID [facility] Last Admin: 11/11/18 20:35 Dose: 1 applic Metoprolol Tartrate (Lopressor Tab*) 50 mg PO BID [facility] Last Admin: 11/11/18 20:39 Dose: 50 mg Pantoprazole Sodium (Protonix Tab*) 40 mg PO DAILY [facility] Last Admin: 11/11/18 09:45 Dose: 40 mg Pharmacy Profile Note (Lidocaine Patch Remove*) 1 note N/A 2100 [facility] Last Admin: 11/11/18 20:34 Dose: 1 note Pharmacy Profile Note (Buprenorph Patch Check Q Shift) 1 note FOLLOW UP 0700, 1900 [facility] Last Admin: 11/12/18 07:02 Dose: 1 note Potassium Chloride (Klor Con Er Tab*) 10 meq PO BID [facility] Last Admin: 11/11/18 20:39 Dose: 10 meq Prednisone (Deltasone Tab*) 40 mg PO DAILY [facility] Last Admin: 11/11/18 13:14 Dose: 40 mg Prochlorperazine Edisylate (Compazine Inj*) 5 mg IV Q6H PRN PRN Reason: NAUSEA/VOMITING Last Admin: 11/08/18 11:31 Dose: 5 mg Verapamil HCl (Calan Sr Cap*) 180 mg PO DAILY [facility] Last Admin: 11/11/18 09:45 Dose: 180 mg Vital Signs - 8 hr 11/12/18 11/12/18 11/12/18 00:30 03:30 04:18 Temperature 97.0 F Pulse Rate 92 Respiratory 20 20 20 Rate Blood Pressure 134/68 (mmHg) O2 Sat by Pulse 95 Oximetry 11/12/18 11/12/18 11/12/18 04:43 06:45 07:15 Temperature 98.6 F Pulse Rate 97 Respiratory 20 16 16 Rate Blood Pressure 92/61 (mmHg) O2 Sat by Pulse 94 Oximetry Oxygen Devices in Use Now: Nasal Cannula Appearance: Pleasant woman in NAD Eyes: No Scleral Icterus, PERRLA Ears/Nose/Mouth/Throat: NL Teeth, Lips, Gums, Clear Oropharnyx Neck: NL Appearance and Movements; NL JVP Respiratory: Symmetrical Chest Expansion and Respiratory Effort, - - Scant crackles in RLL Cardiovascular: - - 3/6 murmur across precordium Abdominal: NL Sounds; No Tenderness; No Distention, No Hepatosplenomegaly Lymphatic: No Cervical Adenopathy Extremities: No Edema Skin: No Rash or Ulcers Neurological: Alert and Oriented x 3 Result Diagrams: 11/11/18 06:46 11/11/18 06:46 Microbiology and Other Data: Microbiology 11/07/18 00:13 Aerobic Blood Culture - Final Blood Venous No Growth Day 5 Anaerobic Blood Culture - Final No Growth Day 5 11/07/18 00:13 Aerobic Blood Culture - Final Blood Venous No Growth Day 5 Anaerobic Blood Culture - Final No Growth Day 5 11/07/18 18:50 Legionella Urinary Antigen - Final Urine Negative Legionella Antigen Streptococcus pneumoniae Ag Screen - Final Negative S. pneumo Antigen 11/07/18 01:35 Nasal Screen MRSA (PCR) - Final Nasal Mrsa Not Detected Assess/Plan/Problems-Billing Assessment: 73F PMH RA on MTX/Plaquenil, chronic pain on Butrans, ostomy status from prior diverticulitis, anxeity and depression on benzo, HTN, hypothyroid, CAD s/p distant DE, heart murmur with recent Echo showing Left Ventricular Hypertrophy w DYNAMIC LVOT who presented with cough found to have RLL PNA, hypoxic resp failure. - Patient Problems (1) Community acquired pneumonia Current Visit: Yes Status: Acute Code(s): J18.9 - PNEUMONIA, UNSPECIFIED ORGANISM SNOMED Code(s): 519714016 Comment: - On Levofloxacin Day / on 11/12, has allergy to Ceph and PCN - RLL with mild crackles still (2) Hypoxia Current Visit: Yes Status: Acute Code(s): R09.02 - HYPOXEMIA SNOMED Code(s ): 205102330 Comment: - Persistent, mutlifactoria from infection, reactive airway compoenent and ? some fluid from her dynamic LVOT? - Started prednisone 40mg daily 11/11, continue for 5 day burst, 3 days of tabs to go home - Continue nebs - Briefly on Lasix, stop on d/c - Wean as able, unable to secure outpt O2 2/2 to no other qualifying dx (3) Heart murmur Current Visit: Yes Status: Acute Code(s): R01.1 - CARDIAC MURMUR, UNSPECIFIED SNOMED Code(s): 52226497 Comment: - Recent Echo in September 2018 shows dynamic LVOT thought to be from hypertrophic cardiac muscle, unclear if true HOCUM. (4) Coronary artery disease Current Visit: Yes Status: Acute Code(s): I25.10 - ATHSCL HEART DISEASE OF [place] CORONARY ARTERY W/O ANG PCTRS SNOMED Code(s): 31048325 Comment: - Optimized on aspirin, statin, metoprolol (5) Hypertension Current Visit: Yes Status: Acute Code(s): I10 - ESSENTIAL (PRIMARY) HYPERTENSION SNOMED Code(s): 01583356 Comment: - Cyrrently on home medications, Verapamil, Metoprolol, HCTZ (6) Hypothyroidism Current Visit: Yes Status: Acute Code(s): E03.9 - HYPOTHYROIDISM, UNSPECIFIED SNOMED Code(s): 58868450 Comment: - Home levothyroxine (7) Rheumatoid arthritis Current Visit: Yes Status: Acute Code(s): M06.9 - RHEUMATOID ARTHRITIS, UNSPECIFIED SNOMED Code(s): 53398229 Comment: - MTX and hydroxychloroquine, we hold off Methotrexate for now due to infection. (8) DVT prophylaxis Current Visit: Yes Status: Acute Code(s): Z29.9 - ENCOUNTER FOR PROPHYLACTIC MEASURES, UNSPECIFIED SNOMED Code(s): 744907973 Comment: - SQH (9) DNR (do not resuscitate) Current Visit: Yes Status: Acute Status and Disposition: Plan for discharge as soon as off O2
[2018-11-12] MEDS: Lidocaine PATCH 5%* 1 PATCH TRANSDERM SCH (08:53)
[2018-11-12] MEDS: Lidocaine 4% GEL* 10 GM TUBE TOPICAL SCH (08:53)
[2018-11-12] MEDS: predniSONE TAB* 20 MG PO SCH (08:55)
[2018-11-12] MEDS: DULoxetine DR CAP* 20 MG CAP.DR PO SCH (08:55)
[2018-11-12] MEDS: Potassium Chlor TAB* 10 MEQ TAB.ER PO SCH (08:55)
[2018-11-12] MEDS: Atorvastatin* 40 MG TAB PO SCH (08:55)
[2018-11-12] MEDS: Folic Acid TAB* 1 MG PO SCH (08:56)
[2018-11-12] MEDS: Calcium/Vitamin D TAB 250/125* TAB PO SCH (08:56)
[2018-11-12] MEDS: Levofloxacin TAB* 750 MG PO SCH (08:56)
[2018-11-12] MEDS: Hydroxychloroquine TAB* 200 MG PO SCH (08:56)
[2018-11-12] MEDS: Gabapentin CAP(*) 300 MG PO SCH ×2 (08:56→13:56)
[2018-11-12] MEDS: Aspirin EC TAB* 81 MG TAB.EC PO SCH (08:56)
[2018-11-12] MEDS: Pantoprazole TAB * 40 MG TAB PO SCH (08:56)
[2018-11-12] MEDS: Verapamil SR CAP* 180 MG PO SCH (10:43)
[2018-11-12] MEDS: Hydrochlorothiazide TAB* 25 MG PO SCH (10:43)
[2018-11-12] MEDS: Metoprolol Tartrate TAB* 50 mg PO SCH (10:43)
[2018-11-12 11:56] VITALS: BP 127/56
== END 2018-11-12 14:45 | disposition home or self-care (01) | DRG 193 ==
LOC: ED 22:40 → MED 11-07 00:38 → OBSVTOIN 11-07 11:00
PROVIDERS: ADMIT Internal Medicine; ATTEND Internal Medicine
DX: J18.1 Lobar pneumonia, unspecified organism (principal); J96.01 Acute respiratory failure with hypoxia; I42.1 Obstructive hypertrophic cardiomyopathy; I95.9 Hypotension, unspecified; J44.9 Chronic obstructive pulmonary disease, unspecified; M06.9 Rheumatoid arthritis, unspecified; I10 Essential (primary) hypertension; E66.9 Obesity, unspecified; E03.9 Hypothyroidism, unspecified; I25.10 Atherosclerotic heart disease of native coronary artery without angina pectoris; M25.50 Pain in unspecified joint; G89.29 Other chronic pain; F32.9 Major depressive disorder, single episode, unspecified; F41.9 Anxiety disorder, unspecified; M19.90 Unspecified osteoarthritis, unspecified site; R01.1 Cardiac murmur, unspecified; I25.2 Old myocardial infarction; Z68.36 Body mass index [BMI] 36.0-36.9, adult; Z88.0 Allergy status to penicillin; Z88.2 Allergy status to sulfonamides; Z88.8 Allergy status to other drugs, medicaments and biological substances; Z82.49 Family history of ischemic heart disease and other diseases of the circulatory system; Z87.891 Personal history of nicotine dependence; Z93.3 Colostomy status; Z79.899 Other long term (current) drug therapy
CPT/HCPCS: 36415; 71046; 71275; 80048; 80053; 82803; 83605; 84484; 85025; 85610; 86140; 87040; 87641; 87899; 93005; 99285; A9270-GY; G8978-GP-CK; G8979-GP-CI; J0780; J1644; J2270; J7512; Q9967

== ENCOUNTER 2019-02-06 12:04 | Emergency (ER) | payer MEDICARE, MEDICAID ==
--- NOTE | 2019-02-06 12:40 | ED ---
Respiratory - HPI Summary HPI Summary: This patient is a 73 year old female brought in by EMS presenting to [facility] with a chief complaint of cough. Pt had PNA which she was hospitalized here at [facility], d /c home on PO ABX, and after she finished that medication she was seen by her PCP which said she had still PNA, He put her on a different PO ABX, and she finished those on 02/02. She stated that she started coughing again on Wednesday and today she reports fatigue and weakness. She states she is not on home O2. The patient has a colostomy. She denies CP and abdominal pain. - History of Current Complaint Chief Complaint: EDShortnessOfBreath Stated Complaint: SOB PER EMS Time Seen by Provider: 02/06/19 12:32 Hx Obtained From: Patient Onset/Duration: Lasting Weeks Pain Intensity: 8 - Allergy/Home Medications Allergies/Adverse Reactions: Allergies Allergy/AdvReac Type Severity Reaction Status Date / Time cephalexin Allergy Unknown Verified 12/05/18 10:42 Reaction Details Penicillins Allergy Unknown Verified 12/05/18 10:42 Reaction Details Sulfa (Sulfonamide Allergy Unknown Verified 12/05/18 10:42 Antibiotics) Reaction Details Home Medications: Home Medications Albuterol HFA INHALER* [Ventolin HFA Inhaler*] 2 puff INH QID PRN 02/06/19 [ History Confirmed 02/06/19] Simethicone [Gas-X] 80 mg PO Q6HR PRN 02/06/19 [History Confirmed 02/06/19] PMH/Surg Hx/FS Hx/Imm Hx Endocrine/Hematology History: Denies: Hx Diabetes Cardiovascular History: Reports: Hx Hypercholesterolemia, Hx Hypertension, Other Cardiovascular Problems/Disorders - AAA per patient Respiratory History: Reports: Hx Chronic Obstructive Pulmonary Disease (COPD) History: Denies: Hx Renal Disease Musculoskeletal History: Reports: Hx Arthritis - R.A., Hx Back Problems, Hx Osteoporosis Sensory History: Reports: Hx Contacts or Glasses Denies: Hx Eye Prosthesis, Hx Legally Blind, Hx Deafness, Hx Hearing Aid Opthamlomology History: Reports: Hx Contacts or Glasses Denies: Hx Eye Prosthesis, Hx Legally Blind Neurological History: Denies: Hx Developmental Delay Psychiatric History: Denies: Hx Autism - Surgical History Surgery Procedure, Year, and Place: Back surgery x2 - Immunization History Immunizations Up to Date: Yes Infectious Disease History: No Infectious Disease History: Denies: Traveled Outside the [place] in Last 30 Days - Family History Known Family History: Negative: Seizure Disorder - Social History Alcohol Use: None Substance Use Type: Reports: None Smoking Status (MU): Former Smoker Review of Systems Positive: Fatigue Negative: Chest Pain Positive: Cough Negative: Abdominal Pain Positive: Weakness All Other Systems Reviewed And Are Negative: Yes Physical Exam - Summary Physical Exam Summary: Appearance: Pale morbidly obese woman laying on the stretcher in no acute distress. Skin: Warm, dry, no obvious rash Eyes: sclera anicteric, conjunctival pallor ENT: mucous membranes moist, pharynx appears normal. Neck: Supple, nontender Respiratory: Clear to auscultation, no signs of respiratory distress. Wet sounding ronchi in the right lung without signs of respiratory distress. Cardiovascular: Normal S1, S2. No murmurs. Normal distal pulses in tibial and radial bilaterally. Abdomen: Soft, nontender, normal active bowel sounds present Musculoskeletal: Normal, Strength/ROM Intact Neurological: A&Ox3, awake and alert, mentation is normal, speech is fluent and appropriate Psychiatric: affect is normal, does not appear anxious or depressed Triage Information Reviewed: Yes Vital Signs On Initial Exam: Initial Vitals Temp Pulse Resp BP Pulse Ox 98.1 F 72 20 130/77 95 02/06/19 12:05 02/06/19 12:05 02/06/19 12:05 02/06/19 12:05 02/06/19 12:05 Vital Signs Reviewed: Yes Procedures - Sedation Patient Received Moderate/Deep Sedation with Procedure: No Diagnostics - Vital Signs Vital Signs Temp Pulse Resp BP Pulse Ox 02/06/19 12:05 98.1 F 72 20 130/77 95 - Laboratory Result Diagrams: 02/06/19 13:00 02/06/19 13:00 Lab Statement: Any lab studies that have been ordered have been reviewed, and results considered in the medical decision making process. - EKG 1339 Cardiac Rate: NL - 65 BPM EKG Rhythm: Sinus Rhythm Summary of EKG Findings: NSR at 65 BPM BPM, P waves, QRS complex, and T waves are within normal limits, T waves and intervals are normal, no ischemic changes. This is a normal EKG. ED Physician has reviewed and interpreted this report. Disposition - Course Course Of Treatment: This patient is a 73 year old female brought in by EMS presenting to [facility] with a chief complaint of cough. Physical exam revealed Wet sounding ronchi in the right lung without signs of respiratory distress. CXR and EKG were unremarkable. Labs were unremarkable except Hgb 8.7 L, Hct 28 L, MCV 69 L, MCH 21 L, RDW 19 H, Absolute Eos 0.7 H, BUN/Creatinine Ratio 26.9 H, Glucose 103 H, Alkaline Phosphatase 120 H, CRP 20.13 H. A plan for discharge was discussed with the patient and she was agreeable with this plan. - Diagnoses Provider Diagnoses: Shortness of breath Discharge ED - Sign-Out/Discharge Documenting (check all that apply): Patient Departure - Discharge Plan Condition: Good Disposition: HOME Patient Education Materials: Dyspnea (ED) Referrals: Cynthia Ortega MD [Primary Care Provider] - Additional Instructions: We did not find any sign on your testing today that the pneumonia has returned. Symptoms from pneumonia, particularly the marked fatigue it causes, can linger for several months. Please contact Dr. Ortega's office for a followup check this week; I did contact your office but she was not in this afternoon. Nonetheless she can access the records and testing you had today. - Billing Disposition and Condition Condition: GOOD Disposition: Home - Attestation Statements Document Initiated by Altaf: Yes Documenting Agustínibdamari: Garland Russell Provider For Whom Altaf is Documenting (Include Credential): Paulo Santos MD Scribe Attestation: Garland Tyson, scribed for Paulo Santos MD on 02/07/19 at 0756. Scribe Documentation Reviewed: Yes Provider Attestation: The documentation as recorded by the Garland forrest accurately reflects the service I personally performed and the decisions made by me, Paulo Santos MD Status of Scribe Document: Viewed
[2019-02-06 13:26] LABS: Hematocrit 28 % (35-47); Hemoglobin 8.7 g/dL (12.0-16.0); Mean Corpuscular HGB Conc 31 g/dL (31-36); Mean Corpuscular Hemoglobin 21 pg (27-31); Mean Corpuscular Volume 69 fL (80-97); Mean Platelet Volume 8.2 fL (7.4-10.4); Platelet Count 333 10^3/uL (150-450); Red Blood Count 4.14 10^6 /uL (3.70-4.87); Red Cell Distribution Width 19 % (10-15); White Blood Count 5.6 10^3/uL (3.5-10.8)
[2019-02-06 13:45] LABS: Albumin 3.8 g/dL (3.2-5.2); Albumin/Globulin Ratio 1.5 (1-3); BUN/Creatinine Ratio 26.9 (8-20); C Reactive Protein 20.13 mg/L (<8.01); EGFR African American 87.8 (>60); EGFR Non-African American 72.6 (>60); Globulin 2.6 g/dL (2-4); Magnesium 1.9 mg/dL (1.9-2.7); Potassium 4.7 mmol/L (3.5-5.0); Total Bilirubin 0.3 mg/dL (0.2-1.0); Total Protein 6.4 g/dL (6.4-8.9)
[2019-02-06 14:17] LABS: ABS Basophils 0.2 10^3/ul (0-0.2); ABS Eosinophils 0.7 10^3/ul (0-0.6); ABS Lymphocytes 1.3 10^3/ul (1.0-4.8); ABS Monocytes 0.6 10^3/ul (0-0.8); ABS Neutrophils 2.8 10^3/ul (1.5-7.7); Eosinophil % 12.5 %; Lymphocyte % 24.1 %; Nucleated Red Blood Cells % 0.1; TSH (Thyroid Stimulating Horm) 1.99 mcIU/mL (0.34-5.60)
[2019-02-06 14:48] VITALS: BP 101/62
== END 2019-02-06 17:31 | disposition home or self-care (01) ==
LOC: ED 12:04
DX: R06.02 Shortness of breath (principal); R94.31 Abnormal electrocardiogram [ECG] [EKG]; I10 Essential (primary) hypertension; I71.4 Abdominal aortic aneurysm, without rupture; E78.00 Pure hypercholesterolemia, unspecified; J44.9 Chronic obstructive pulmonary disease, unspecified; M06.9 Rheumatoid arthritis, unspecified; E66.01 Morbid (severe) obesity due to excess calories; Z88.0 Allergy status to penicillin; Z88.1 Allergy status to other antibiotic agents; Z88.2 Allergy status to sulfonamides; Z87.01 Personal history of pneumonia (recurrent); Z93.3 Colostomy status; Z87.891 Personal history of nicotine dependence; Z68.35 Body mass index [BMI] 35.0-35.9, adult
CPT/HCPCS: 36415; 71046; 80053; 83605; 83735; 84443; 84484; 85025; 85060; 86140; 93005; 99283

== ENCOUNTER 2019-05-02 14:28 | Inpatient (IN) | payer MEDICARE, MEDICAID ==
--- NOTE | 2019-05-02 14:43 | ED ---
Shortness of Breath - HPI Summary HPI Summary: Patient is a 73 y/o F presenting to the ED via EMS for a chief complaint of shortness of breath. Per EMS, patient also noted chest pain rated as 10/10 in severity for which she was given NTG without relief. She also reports a cough with clear phlegm. PMHx is significant for COPD, pneumonia, rheumatoid arthritis , CAD, and hypertrophic cardiomyopathy. Patient had a Chest CT on 04/14/19 for PNA and was seen at [facility] in November 2018. Patient is a resident at [facility]. She reports cough. Denies fever. DNR/DNI per Rn. On EMS arrival 70% on RA, placed on NRB. - History of Current Complaint Time Seen by Provider: 05/02/19 14:33 Hx Obtained From: Patient, EMS Onset/Duration: Still Present Timing: Constant Current Severity: Moderate Dyspnea At: Rest Aggravating Factors: Nothing Alleviating Factors: Nothing Associated Signs & Symptoms: Cough (Productive) - With clear phlegm, Chest Pain Unrelated to Cough Related History: Obesity - Allergy/Home Medications Allergies/Adverse Reactions: Allergies Allergy/AdvReac Type Severity Reaction Status Date / Time cephalexin Allergy Unknown Verified 03/15/19 09:39 Reaction Details Penicillins Allergy Unknown Verified 03/15/19 09:39 Reaction Details Sulfa (Sulfonamide Allergy Unknown Verified 03/15/19 09:39 Antibiotics) Reaction Details Home Medications: Home Medications Mag Hydrox/Aluminum Hyd/Simeth [Mintox Suspension] 15 ml PO Q4H PRN 05/02/19 [ History Confirmed 05/02/19] Transparent Dressing [Tegaderm] 1 patch TOPICAL WEEKLY 05/02/19 [History Confirmed 05/02/19] PMH/Surg Hx/FS Hx/Imm Hx Previously Healthy: Yes Endocrine/Hematology History: Denies: Hx Diabetes Cardiovascular History: Reports: Hx Coronary Artery Disease, Hx Hypercholesterolemia, Hx Hypertension, Other Cardiovascular Problems/Disorders - AAA, hypertrophic cardimyopathy Respiratory History: Reports: Hx Chronic Obstructive Pulmonary Disease (COPD), Hx Pneumonia History: Denies: Hx Renal Disease Musculoskeletal History: Reports: Hx Arthritis - R.A., Hx Rheumatoid Arthritis, Hx Back Problems, Hx Osteoporosis Sensory History: Reports: Hx Contacts or Glasses Denies: Hx Eye Prosthesis, Hx Legally Blind, Hx Deafness, Hx Hearing Aid Opthamlomology History: Reports: Hx Contacts or Glasses Denies: Hx Eye Prosthesis, Hx Legally Blind EENT History: Denies: Hx Deafness Neurological History: Denies: Hx Developmental Delay Psychiatric History: Denies: Hx Autism - Surgical History Surgical History: Yes Surgery Procedure, Year, and Place: Back surgery x2 Infectious Disease History: No - Family History Known Family History: Negative: Seizure Disorder - Social History Occupation: Retired Lives: Assisted Living Alcohol Use: None Hx Substance Use: No Substance Use Type: Reports: None Hx Tobacco Use: Yes Smoking Status (MU): Former Smoker Review of Systems Positive: Chest Pain Positive: Shortness Of Breath, Cough - With clear phlegm All Other Systems Reviewed And Are Negative: Yes Physical Exam - Summary Physical Exam Summary: Constitutional: Ill-appearing, Moderate distress. Skin: Warm, Dry HENT: Normocephalic; Atraumatic Eyes: Conjunctiva normal Neck: Musculoskeletal ROM normal neck. (-) JVD, (-) Stridor, (-) Nuchal rigidity Cardio: Rhythm regular, tachycardia, Heart sounds normal; Intact distal pulses; Radial pulses are 2+ and symmetric. (-) Murmur Pulmonary/Chest wall: Bilateral rhonchi in all lung isbell, increased workup breathing, moderate distress. Abd: Soft, (-) tenderness, (-) Distension, (-) Guarding, (-) Rebound Musculoskeletal: (+) LE Edema Lymph: (-) Cervical adenopathy Neuro: Alert, Oriented x3 Psych: Mood and affect Normal Triage Information Reviewed: Yes Vital Signs Reviewed: Yes Procedures - Sedation Patient Received Moderate/Deep Sedation with Procedure: No Diagnostics - Laboratory Result Diagrams: 05/03/19 03:32 05/03/19 03:32 Lab Statement: Any lab studies that have been ordered have been reviewed, and results considered in the medical decision making process. - Radiology Chest X-ray Radiology Interpretation Completed By: Radiologist Summary of Radiographic Findings: Chest X-ray IMPRESSION: INTERVAL DEVELOPMENT OF DIFFUSE CONSOLIDATION OF THE RIGHT LUNG AND LEFT LOWER LUNG. RECOMMEND FOLLOW -UP UNTIL RESOLUTION TO EXCLUDE UNDERLYING PULMONARY PARENCHYMAL PATHOLOGY. Reviewed by Dr. Borja. - CT Chest/Abdomen/Pelvis CTA CT Interpretation Completed By: Radiologist Summary of CT Findings: Chest/Abdomen/Pelvis CTA IMPRESSION: 1. NO PULMONARY ARTERIAL FILLING DEFECT TO SUGGEST PULMONARY EMBOLISM. 2. NO AORTIC INTIMAL FLAP TO SUGGEST DISSECTION. 3. EXTENSIVE AIRSPACE DISEASE THROUGHOUT THE RIGHT LUNG AND IN THE LEFT LUNG BASE. 4. AGAIN NOTED ARE MILD FIBROTIC CHANGES. 5. INFRARENAL ABDOMINAL AORTIC ANEURYSM MEASURING UP TO 4.5 CM, SLIGHTLY INCREASED IN SIZE FROM SEPTEMBER 10, 2018. 6. STATUS POST COLOSTOMY. 7. DIVERTICULOSIS. 8. RECTOCYSTOCELE. 9. ATHEROSCLEROSIS. Reviewed by Dr. Borja. - EKG 14:41 Cardiac Rate: Tachycardia - 120 BPM EKG Rhythm: Sinus Tachycardia ST Segment: Normal Ectopy: None Summary of EKG Findings: An EKG at 14:41 reveals sinus tachycardia with 120 BPM , ST depressions in V1, aVL, V5, V6, significant artefact, nml axis, nml intervals. No STEMI. No acute changes. ED physician has reviewed and interpreted this EKG. 15:00 Cardiac Rate: Tachycardia - 114 BPM EKG Rhythm: Sinus Tachycardia ST Segment: Normal Ectopy: None Summary of EKG Findings: An EKG at 15:00 reveals sinus tachycardia with 114 BPM , ST depressions in V1 and aVL, nml axis, nml intervals. No STEMI. No acute changes. No significant change from prior. ED physician has reviewed and interpreted this EKG. Re-Evaluation - Re-Evaluation First Eval Re-Evaluation Time: 14:56 Change: Unchanged Comment: At 14:56, patient states she had left-sided chest pain that felt similar to pneumonia that radiated to her back. Course/Dx - Course Course Of Treatment: 73 y/o F w hx COPD, RA, cardiomyopathy who is presenting with shortness breath and chest pain. - on arrival, patient is, satting 70% on room air. Placed on oxy mask 10L. bilateral rhonchi, right greater than left. Afebrile. Tachycardic. BP stable. - labs notable for normal white count, troponin negative. EKG tachycardic with some ST depressions laterally. X-ray w infiltrates of the right side >left, CTA dissection does not show any acute dissection, shows chronic aneurysm. - Patient covered broadly for pneumonia with Aztreonam and Levaquin, 30 cc per KG bolus of fluids, given LA 4. BC obtained. Admit to ICU - Diagnoses Provider Diagnoses: Sepsis, Hypoxia, Respiratory distress, Pneumonia - Physician Notifications Discussed Care of Patient With: Noah Alvarado - At 15:51, Dr. Alvarado recommends the hospitalist consult for patients admission. At 16:10, Dr. Miri Pearson agrees to admit the patient to [facility], pending CTA read. Time Discussed With Above Provider: 15:51 Instructed by Provider To: Admit As Inpatient - Critical Care Time Critical Care Time: 30-74 min - Upon my evaluation, this patient had a high probability of imminent or life-threatening deterioration due to respiratory failure, sepsis, which required my direct attention, intervention, and personal management. I have personally provided 35 minutes of critical care time exclusive of time spent on separately billable procedures. Time includes review of laboratory data, radiology results, discussion with consultants, and monitoring for potential decompensation. Interventions were performed as documented above. Discharge ED - Sign-Out/Discharge Documenting (check all that apply): Patient Departure - Admit - Discharge Plan Condition: Stable Disposition: ADMITTED TO [facility] - Billing Disposition and Condition Condition: STABLE Disposition: Admitted to [facility] - Attestation Statements Document Initiated by Scribe: Yes Documenting Scribe: Virginie Guthrie Provider For Whom Altaf is Documenting (Include Credential): Linh Borja MD Scribe Attestation: I, Virginie Guthrie, scribed for Linh Borja MD on 05/03/19 at 1127. Scribe Documentation Reviewed: Yes Provider Attestation: The documentation as recorded by the shoshanaibVirginie wetzel accurately reflects the service I personally performed and the decisions made by me, Linh Borja MD Status of Scribe Document: Viewed
[2019-05-02] MEDS ORDERED: Iohexol 350* (CONTRAST) 500 ML MDV IV ONE (15:23)
--- OUTSIDE RECORDS SUMMARY | 2019-05-02 15:23 | XMS REPORT | Continuity of Care Document ---
:1945 External Reference #:[id number] Author Name Zaina Banuelos MD (transmitted by agent of provider Cynthia Douglas) Address [address], [address] [place] [address] Care Team Providers Name Role Phone Cynthia Ortega M.D. - Family Medicine Care Team Information [employer] Problems Active Problems Provider Date Rheumatoid arthritis Binta Heaton M.D. Onset: 01/19/2018 Essential hypertension Binta Heaton M.D. Onset: 01/19/2018 Colostomy present Binta Heaton M.D. Onset: 01/19/2018 Low back pain Binta Heaton M.D. Onset: 01/19/2018 Note: s/p burst fx and fusion surgery Mild chronic obstructive pulmonary disease Cynthia Ortega MD Onset: 01/19/2018 Localized, primary osteoarthritis of the shoulder Mohit Quiroz MD Onset: 07/2017 region Localized, primary osteoarthritis Mohit Quiroz MD Onset: 03/15/2018 Hypothyroidism Cynthia Ortega MD Onset: 06/09/2018 Social History Type Date Description Comments Sex Unknown ETOH Use Drinks Alcoholic Beverages Rarely Tobacco Use Start: Unknown End: Patient is a former 1/2 PPD, started smoker age 14, quit age 66 Recreational Drug Use Denies Drug Use Smoking Status Reviewed: 03/07/19 Patient is a former 1/2 PPD, started smoker age 14, quit age 66 Exercise Type/Frequency Does not exercise Allergies, Adverse Reactions, Alerts Active Allergies Reaction Severity Comments Date Penicillin Anaphylaxis 01/19/2018 Keflex Urticaria 01/19/2018 Sulfa Antibiotics Urticaria, Difficulty breathing 01/19/2018 Medications Active Medications SIG Qnty Indications Ordering Date Provider Mintox Regular Take 15 ml by mouth 355ml Binta 03/03/2019 Strength every 4 hs as Ina Heaton needed for [id number]/5ML heartburn Suspension Calcium 600+D One PO bid 60tabs Cynthia Ortega MD 12/21/2018 [id number] Tablets Cyclobenzaprine HCL by mouth twice a 30tabs Other Ordering 11/15/2018 5mg day as needed Provider Tablets Pain Relieving apply one patch to 18units Other Ordering 11/15/2018 Lidocaine Patch shoulder daily as Provider 4% needed Patches Shingrix 0.5 milliliters 1units Z23 Cynthia Ortega MD 09/20/2018 50mcg/0.5ML intramuscular now Suspension Rec and 1-2 months later repeat Plaquenil 1 by mouth every 90tabs Z79.899 Gee Mcmahan, 06/27/2018 200mg Tablets day M.DNuha M06.09 Wheelchair PT/OT Evaluation Mohit Quiroz, 06/23/2018 MD Motorized Wheelchair Disp 1 motorized M19.012 Mohit Quiroz, 06/22/2018 wheelchair Ht 66 Wt 197 Date of Surgery: 05/11/18 History: Kayla is a 89 fem Omeprazole 1 by mouth every 90caps R12 Cynthia Ortega, 06/09/[address] kaelyn PANDA Convatechris Waffers 2 1/4" change twice weekly 12units Cynthia Ortega, 2018 z93.3 Convatec Drainage Bags For change twice weekly 12units Cynthia Ortega, 04/13 2 1/4 " Waffer Dx z93.3 Alex-Fit Natura Drainable change at least 12units Raegan Milan, 03/28/2018 Pouch/Stomahesive twice a week Wafer/100mm Pouch Misc Ibuprofen 200 2 tabs by mouth 120tabs Cynthia Ortega, 03/18/2018 200mg Tablets every 8 hours as MD needed pain Alex-Fit Natura Drainable change at least 12units Z93.3 Cynthia Ortega, 2017 Pouch/Stomahesive twice a week Wafer/100mm Pouch Misc Alex-Fit Natura change at least 12units Z93.3 Cynthia Ortega, 03/07/2018 Durahesivemoldable Convex twice a week Skin Barrier Misc Alex-Fit Natura Drainable change at least 10units Z93.3 Cynthia Ortega, 2017 Pouch 1-3/4"(45mm) twice a week Pouch Misc Nabumetone 1 tab three times a 90tabs G89.4 Iliana 01/26/2018 500mg Tablets day after meals Ina Pelaez Cymbalta 1 by mouth every 90caps G89.4 Cynthia Ortega, 01/26/[address] Part day Acetaminophen-Codeine #3 2 by mouth bid and 120tabs G89.4 Cynthia Ortega, 300-30mg 2 tab as needed in MD Tablets the afternoon Xanax one by mouth twice 60tabs Cynthia Ortega, 0.25mg Tablets daily as needed for MD anxiety Diclofenac Sodium apply to left knee Unknown 1% Gel and both shoulders topically 4 times daily as needed Simethicone 1 tab every 6 hours Unknown 80mg Chewtabs as needed bloating Levothyroxine Sodium 1 by mouth every Unknown 112mcg Tablets day Buprenorphine Apply one patch Yariel, 15mcg/HR Patches once a week Rock Myles [employer]-BC Hydrochlorothiazide Take 1 Tablet By 30tabs Cynthia Ortega, 25mg Tablets Mouth Daily For MD Hypertension Ventolin HFA 2 puffs by mouth 8gm Cynthia Ortega, 108(90Base) mcg/Act four times a day as MD Aerosol needed Metoprolol Tartrate 1 by mouth twice a 180tabs Iliana 50mg Tablets day Ina Pelaez Gabapentin 1 by mouth three 270caps Cynthia Ortega, 300mg Capsules times a day Folic Acid 1 by mouth every 90tabs Cynthia Ortega, 1mg Tablets day MD Potassium Chloride ER 1 by mouth twice 180caps Cynthia Ortega, 10Meq daily MD Capsules ER Zantac 75 take 2 tab by mouth 60tabs Cynthia Ortega, 75mg Tablets at at bedtime MD Bautista 15 milliliters 355ml Cynthia Ortega, 648-337-35yr/5ML Suspension every 4 hours as MD needed for heartburn or indigestion Verapamil HCL ER 1 by mouth every 90caps Cynthia Ortega, 180mg Caps ER 24HR day Methotrexate 2 tbs by mouth on 12tabs M06.09 Zsofia Magdy, 2.5mg Tablets wednesdays, for WE[employer] rheumatoid arthritis Atorvastatin Calcium 1 by mouth every 90tabs Cynthia Ortega, 40mg Tablets day History Medications Nystatin apply to 3units Binta 02/14/2019 - 100MU Powder affected areas Ina Heaton 02/10/2019 two to three times a day Oyster Shell Calcium take one tablet 180tabs Cynthia Ortega MD 01/20/2019 - by mouth twice a 01/12/2019 500mg Tablets day Doxycycline Hyclate 1 by mouth twice 20tabs J18.9 Cynthia Ortega MD 2018 - a day x 10 days 02/10/[address] Cueto 1 tab by mouth 60tabs F41.9 Cynthia Ortega MD 11/30/2018 - 0.25mg Tablets twice a day as 12/20/2018 needed for anxiety Ciprofloxacin HCL 1 tab daily for 7tabs Other Ordering 11/15/2018 - 750mg 7 days Provider 11/21/2018 Tablets Levothyroxine Sodium 1 by mouth every 30tabs Cynthia Ortega MD 09/26/2018 - day 11/21/2018 125mcg Tablets Diclofenac Sodium apply not more 100units Cynthia Ortega MD 09/20/2018 - 1% than 2 grams to 11/21/2018 Gel joints 4 times a day as needed Levothyroxine Sodium 1 by mouth every 90tabs E03.9 Cynthia Ortega MD 2018 - day, on empty 09/26/2018 112mcg Tablets stomach. wait 1 hour to eat, 2 hours to take any vitamins or calcium rich foods Medications Administered in Office Medication SIG Qnty Indications Ordering Provider Date Triamcinolone (Kenalog) Mohit Quiroz MD 02/10/2019 Injection Triamcinolone (Kenalog) Mohit Quiroz MD 02/10/2019 Injection Triamcinolone (Kenalog) Mohit Quiroz MD 02/10/2019 Injection Inj, Regadenoson, 0.1 MG Noah Alvarado, DO [facility] 12/28/2018 Injection Technetium TC 99M Noah Alvarado, DO [facility] 12/28/2018 Tetrofosmin, Per Unit Dose Up To 40 Millicuries Injection Technetium TC 99M Noah Alvarado, DO [facility] 12/28/2018 Tetrofosmin, Per Unit Dose Up To 40 Millicuries Injection Triamcinolone (Kenalog) Mohit Quiroz MD 06/17/2018 Injection Triamcinolone (Kenalog) Mohit Quiroz MD 06/17/2018 Injection Triamcinolone (Kenalog) Mohit Quiroz MD 06/17/2018 Injection Triamcinolone (Kenalog) Mohit Quiroz MD 03/15/2018 Injection Triamcinolone (Kenalog) Mohit Quiroz MD 03/15/2018 Injection PPD Cynthia Ortega MD 01/19/2018 Injection Influenza,Unspecified Unknown 01/06/2018 Injection Immunizations CPT Code Status Date Vaccine Reaction Lot # [id number] Given 02/02/2019 Influenza Virus Vaccine, Pt tolerated well with [id number] Quadrivalent ([id number]), no immediate adverse Derived From Cell reaction Vital Signs Date Vital Result Comment 03/07/2019 9:40am Height 66 inches 5'6" Weight 219.00 lb Heart Rate 54 /min BP Systolic Sitting 122 mmHg BP Diastolic Sitting 78 mmHg O2 % BldC Oximetry 92 % BMI (Body Mass Index) 35.3 kg/m2 02/23/2019 8:43am Height 66 inches 5'6" Weight 217.00 lb Heart Rate 63 /min BP Systolic Sitting 158 mmHg Rue lg cuff BP Diastolic Sitting 85 mmHg Rue lg cuff O2 % BldC Oximetry 94 % BMI (Body Mass Index) 35.0 kg/m2 Results Test Acquired Date Facility Test Result H/L Range Note Laboratory test 02/06/2019 [facility] Lactic Acid 2.0 mmol/L Normal 0.5-2.0 [address] [place] [address] [phone] CBC Auto Diff 02/06/2019 [facility] White Blood 5.6 10^3/uL Normal 3.5-10.[address] [place] [address] [phone] Red Blood Count 4.14 10^6/uL Normal 3.70-4.87 Hemoglobin 8.7 g/dL Low 12.0-16.0 Hematocrit 28 % Low 35-47 Mean Corpuscular Volume 69 fL Low 80-97 Mean Corpuscular Hemoglobin 21 pg Low 27-31 Mean Corpuscular HGB Conc 31 g/dL Normal 31-36 Red Cell Distribution Width 19 % High 10-15 Platelet Count 333 10^3/uL Normal 150-450 Mean Platelet Volume 8.2 fL Normal 7.4-10.4 Abs Neutrophils 2.8 10^3/uL Normal 1.5-7.7 Abs Lymphocytes 1.3 10^3/uL Normal 1.0-4.8 Abs Monocytes 0.6 10^3/uL Normal 0-0.8 Abs Eosinophils 0.7 10^3/uL High 0-0.6 Abs Basophils 0.2 10^3/uL Normal 0-0.2 Abs Nucleated RBC 0.0 10^3/uL Granulocyte % 50.1 % Lymphocyte % 24.1 % Monocyte % 10.5 % Eosinophil % 12.5 % Basophil % 2.8 % Nucleated Red Blood Cells % 0.1 Comp Metabolic 02/06/2019 [facility] Sodium 137 mmol/L Normal 135-[address] [place] [address] [phone] Potassium 4.7 mmol/L Normal 3.5-5.0 Chloride 105 mmol/L Normal 101-111 Co2 Carbon Dioxide 26 mmol/L Normal 22-32 Anion Gap 6 mmol/L Normal 2-11 Glucose 103 mg/dL High 70-100 Blood Urea Nitrogen 21 mg/dL Normal 6-24 Creatinine 0.78 mg/dL Normal 0.51-0.95 BUN/Creatinine Ratio 26.9 High 8-20 Calcium 9.0 mg/dL Normal 8.6-10.3 Total Protein 6.4 g/dL Normal 6.4-8.9 Albumin 3.8 g/dL Normal 3.2-5.2 Globulin 2.6 g/dL Normal 2-4 Albumin/Globulin Ratio 1.5 Normal 1-3 Total Bilirubin 0.30 mg/dL Normal 0.2-1.0 Alkaline Phosphatase 120 U/L High 34-104 Alt 10 U/L Normal 7-52 Ast 14 U/L Normal 13-39 Egfr Non- 72.6 >60 Egfr 87.8 >60 2 Laboratory test 02/06/2019 [facility] Magnesium 1.9 mg/dL Normal 1.9-2.[address] [place] [address] [phone] C Reactive Protein 20.13 mg/L High <8.01 Troponin-I (TnI) 0.00 ng/mL <0.04 3 TSH (Thyroid Stim Horm) 1.99 mcIU/mL Normal 0.34-5.60 Pathologist Review (SEE NOTE) 4 CBC Auto 01/24/2019 [facility] White Blood 6.9 10^3/uL Normal 3.5-10.8 [address] [place] [address] [phone] Red Blood Count 4.43 10^6/uL Normal 3.70-4.87 Hemoglobin 9.4 g/dL Low 12.0-16.0 Hematocrit 31 % Low 35-47 Mean Corpuscular Volume 71 fL Low 80-97 Mean Corpuscular Hemoglobin 21 pg Low 27-31 Mean Corpuscular HGB Conc 30 g/dL Low 31-36 Red Cell Distribution Width 19 % High 10-15 Platelet Count 422 10^3/uL Normal 150-450 Mean Platelet Volume 8.6 fL Normal 7.4-10.4 Abs Neutrophils 3.3 10^3/uL Normal 1.5-7.7 Abs Lymphocytes 1.8 10^3/uL Normal 1.0-4.8 Abs Monocytes 0.7 10^3/uL Normal 0-0.8 Abs Eosinophils 0.9 10^3/uL High 0-0.6 Abs Basophils 0.2 10^3/uL Normal 0-0.2 Abs Nucleated RBC 0.0 10^3/uL Granulocyte % 47.3 % Lymphocyte % 25.8 % Monocyte % 10.9 % Eosinophil % 13.0 % Basophil % 3.0 % Nucleated Red Blood Cells % 0.1 Laboratory test 01/24/2019 [facility] C Reactive 3.47 mg/L Normal <8.01 6 finding [address] [place] [address] [phone] Erythrocyte Sed Rate 19 mm/Hr Normal 0-29 7 Liver Function 01/24/2019 [facility] Total Protein 6.6 g/dL Normal 6.4-8.9 Panel [address] [place] [address] [phone] Albumin 4.2 g/dL Normal 3.2-5.2 Globulin 2.4 g/dL Normal 2-4 Albumin/Globulin Ratio 1.8 Normal 1-3 Total Bilirubin 0.30 mg/dL Normal 0.2-1.0 Direct Bilirubin 0.10 mg/dL Normal 0.03-0.18 Indirect Bilirubin 0.2 mg/dL Low 0.3-1.0 Alkaline Phosphatase 123 U/L High 34-104 Alt 10 U/L Normal 7-52 Ast 13 U/L Normal 13-39 Basic Metabolic 01/24/2019 [facility] Sodium 138 mmol/L Normal 135-145 Panel [address] [place] [address] [phone] Potassium 4.9 mmol/L Normal 3.5-5.0 Chloride 103 mmol/L Normal 101-111 Co2 Carbon Dioxide 27 mmol/L Normal 22-32 Anion Gap 8 mmol/L Normal 2-11 Glucose 92 mg/dL Normal 70-100 Blood Urea Nitrogen 20 mg/dL Normal 6-24 Creatinine 0.73 mg/dL Normal 0.51-0.95 BUN/Creatinine Ratio 27.4 High 8-20 Calcium 9.5 mg/dL Normal 8.6-10.3 Egfr Non- 78.4 >60 Egfr 94.8 >60 8 Cell Morphology 01/24/2019 [facility] Microcytosis 2+ [address] [place] [address] [phone] Hypochromasia 1+ Polychromasia 2+ Anisocytosis 2+ Laboratory 11/07/2018 [facility] Lactic 3.1 mmol/L Critical 0.5-2.0 9 test finding 101 [facility] [place] [address] [phone] Comp Metabolic 11/06/2018 [facility] Sodium 137 mmol/L Normal 135-145 Panel [address] [place] [address] [phone] Potassium 4.3 mmol/L Normal 3.5-5.0 Chloride 104 mmol/L Normal 101-111 Co2 Carbon Dioxide 22 mmol/L Normal 22-32 Anion Gap 11 mmol/L Normal 2-11 Glucose 129 mg/dL High 70-100 Blood Urea Nitrogen 24 mg/dL Normal 6-24 Creatinine 0.89 mg/dL Normal 0.51-0.95 BUN/Creatinine Ratio 27.0 High 8-20 Calcium 9.3 mg/dL Normal 8.6-10.3 Total Protein 6.1 g/dL Low 6.4-8.9 Albumin 3.7 g/dL Normal 3.2-5.2 Globulin 2.4 g/dL Normal 2-4 Albumin/Globulin Ratio 1.5 Normal 1-3 Total Bilirubin 0.30 mg/dL Normal 0.2-1.0 Alkaline Phosphatase 99 U/L Normal 34-104 Alt 13 U/L Normal 7-52 Ast 15 U/L Normal 13-39 Egfr Non- 62.3 >60 Egfr 75.4 >60 10 Laboratory test 11/06/2018 [facility] C Reactive 13.89 High < 8.01 finding [facility] Protein mg/[place] [address] [phone] Inr/Protime 11/06/2018 [facility] Inr 1.05 Normal 0.82-1.09 11 [facility] [place] [address] [phone] Arterial Blood 11/06/2018 [facility] PH Arterial 7.39 Normal 7.35-7.45 Gas [address] [place] [address] [phone] Pco2 Arterial 37 mmHg Normal 35-45 Po2 Arterial 58 mmHg Critical low 80-100 12 O2 Saturation Arterial 91.0 % Low 94.0-98.0 Base Excess Arterial -2.2 mmol/L Low -2.0-2.0 13 Hco3 Arterial 23.0 mmol/L Normal 19-31 CBC Auto 11/06/2018 [facility] White Blood 9.1 10^3/uL Normal 3.5-10.[address] [place] [address] [phone] Red Blood Count 4.07 10^6/uL Normal 3.70-4.87 Hemoglobin 10.8 g/dL Low 12.0-16.0 Hematocrit 34 % Low 35-47 Mean Corpuscular Volume 82 fL Normal 80-97 Mean Corpuscular Hemoglobin 27 pg Normal 27-31 Mean Corpuscular HGB Conc 32 g/dL Normal 31-36 Red Cell Distribution Width 17 % High 10-15 Platelet Count 238 10^3/uL Normal 150-450 Mean Platelet Volume 8.8 fL Normal 7.4-10.4 Abs Neutrophils 7.7 10^3/uL Normal 1.5-7.7 Abs Lymphocytes 0.6 10^3/uL Low 1.0-4.8 Abs Monocytes 0.6 10^3/uL Normal 0-0.8 Abs Eosinophils 0.1 10^3/uL Normal 0-0.6 Abs Basophils 0.1 10^3/uL Normal 0-0.2 Abs Nucleated RBC 0.0 10^3/uL Granulocyte % 84.6 % Lymphocyte % 6.2 % Monocyte % 6.9 % Eosinophil % 1.4 % Basophil % 0.9 % Nucleated Red Blood Cells % 0.0 Laboratory 11/01/2018 [facility] Erythrocyte 11 mm/Hr Normal 0 -29 14, 15 test finding [address] [place] [address] [phone] Comp Metabolic 11/01/2018 [facility] Sodium 139 Normal 135- [address] mmol/[place] [address] [phone] Potassium 4.3 mmol/L Normal 3.5-5.0 Chloride 103 mmol/L Normal 101-111 Co2 Carbon Dioxide 25 mmol/L Normal 22-32 Anion Gap 11 mmol/L Normal 2-11 Glucose 90 mg/dL Normal 70-100 Blood Urea Nitrogen 17 mg/dL Normal 6-24 Creatinine 0.76 mg/dL Normal 0.51-0.95 BUN/Creatinine Ratio 22.4 High 8-20 Calcium 9.3 mg/dL Normal 8.6-10.3 Total Protein 6.2 g/dL Low 6.4-8.9 Albumin 4.0 g/dL Normal 3.2-5.2 Globulin 2.2 g/dL Normal 2-4 Albumin/Globulin Ratio 1.8 Normal 1-3 Total Bilirubin 0.30 mg/dL Normal 0.2-1.0 Alkaline Phosphatase 116 U/L High 34-104 Alt 14 U/L Normal 7-52 Ast 15 U/L Normal 13-39 Egfr Non- 74.8 >60 Egfr 90.5 >60 16 Laboratory test 11/01/2018 [facility] C Reactive 6.11 Normal < 8.01 17 finding 101 [facility] Protein mg/L [place] [id number] [phone] CBC Auto Diff 11/01/2018 [facility] White Blood 5.9 Normal 3.5 -10.[address] Count 10^3/[place] [address] [phone] Red Blood Count 4.32 10^6/uL Normal 3.70-4.87 Hemoglobin 11.8 g/dL Low 12.0-16.0 Hematocrit 36 % Normal 35-47 Mean Corpuscular Volume 83 fL Normal 80-97 Mean Corpuscular Hemoglobin 27 pg Normal 27-31 Mean Corpuscular HGB Conc 33 g/dL Normal 31-36 Red Cell Distribution Width 17 % High 10-15 Platelet Count 304 10^3/uL Normal 150-450 Mean Platelet Volume 9.4 fL Normal 7.4-10.4 Abs Neutrophils 3.1 10^3/uL Normal 1.5-7.7 Abs Lymphocytes 1.7 10^3/uL Normal 1.0-4.8 Abs Monocytes 0.6 10^3/uL Normal 0-0.8 Abs Eosinophils 0.4 10^3/uL Normal 0-0.6 Abs Basophils 0.1 10^3/uL Normal 0-0.2 Abs Nucleated RBC 0.0 10^3/uL Granulocyte % 51.8 % Lymphocyte % 29.4 % Monocyte % 9.5 % Eosinophil % 6.8 % Basophil % 2.5 % Nucleated Red Blood Cells % 0.0 Laboratory test 09/30/2018 [facility] Miscellaneous Test See comments [address] [place] [address] [phone] Hepatitis C 09/27/2018 [facility] HCV Index 0.03 s/c Antibody [address] [place] [address] [phone] Hepatitis C Antibody Negative Negative Laboratory test 09/10/2018 [facility] Lipase 41 U/L Normal 11.0-82.[address] [place] [address] [phone] Troponin-I (TnI) 0.00 ng/mL <0.04 19 Comp Metabolic 09/10/2018 [facility] Sodium 138 mmol/L Normal 135-[address] [place] [address] [phone] Potassium 4.3 mmol/L Normal 3.5-5.0 Chloride 104 mmol/L Normal 101-111 Co2 Carbon Dioxide 28 mmol/L Normal 22-32 Anion Gap 6 mmol/L Normal 2-11 Glucose 102 mg/dL High 70-100 Blood Urea Nitrogen 20 mg/dL Normal 6-24 Creatinine 0.78 mg/dL Normal 0.51-0.95 BUN/Creatinine Ratio 25.6 High 8-20 Calcium 9.0 mg/dL Normal 8.6-10.3 Total Protein 5.9 g/dL Low 6.4-8.9 Albumin 3.8 g/dL Normal 3.2-5.2 Globulin 2.1 g/dL Normal 2-4 Albumin/Globulin Ratio 1.8 Normal 1-3 Total Bilirubin 0.30 mg/dL Normal 0.2-1.0 Alkaline Phosphatase 74 U/L Normal 34-104 Alt 18 U/L Normal 7-52 Ast 16 U/L Normal 13-39 Egfr Non- 72.6 >60 Egfr 87.8 >60 20 Laboratory test 09/10/2018 [facility] Partial 49.0 High 26.0- 38.[address] [place] [address] PTT [phone] Lactic Acid 1.1 mmol/L Normal 0.5-2.0 21 Inr/Protime 09/10/2018 [facility] Inr 1.11 High 0.82-1.[address] [place] [address] [phone] CBC Auto Diff 09/10/2018 [facility] White Blood 6.8 Normal 3.5 -10.[address] Count 10^3/[place] [address] [phone] Red Blood Count 4.02 10^6/uL Normal 3.70-4.87 Hemoglobin 11.9 g/dL Low 12.0-16.0 Hematocrit 36 % Normal 35-47 Mean Corpuscular Volume 89 fL Normal 80-97 Mean Corpuscular Hemoglobin 30 pg Normal 27-31 Mean Corpuscular HGB Conc 34 g/dL Normal 31-36 Red Cell Distribution Width 15 % Normal 10.5-15 Platelet Count 255 10^3/uL Normal 150-450 Mean Platelet Volume 8.9 fL Normal 7.4-10.4 Abs Neutrophils 4.1 10^3/uL Normal 1.5-7.7 Abs Lymphocytes 1.6 10^3/uL Normal 1.0-4.8 Abs Monocytes 0.8 10^3/uL Normal 0-0.8 Abs Eosinophils 0.3 10^3/uL Normal 0-0.6 Abs Basophils 0.1 10^3/uL Normal 0-0.2 Abs Nucleated RBC 0.0 10^3/uL Granulocyte % 60.1 % Lymphocyte % 22.7 % Monocyte % 11.3 % Eosinophil % 4.8 % Basophil % 1.1 % Nucleated Red Blood Cells % 0.1 Laboratory test 09/09/2018 [facility] Erythrocyte Sed 10 mm/Hr Normal 0-[address] [place] [address] [phone] C Reactive Protein 1.91 mg/L Normal <8.01 CBC Auto 09/09/2018 [facility] White Blood 8.2 10^3/uL Normal 3.5-10.[address] [place] [address] [phone] Red Blood Count 4.08 10^6/uL Normal 3.70-4.87 Hemoglobin 12.1 g/dL Normal 12.0-16.0 Hematocrit 37 % Normal 35-47 Mean Corpuscular Volume 90 fL Normal 80-97 Mean Corpuscular Hemoglobin 30 pg Normal 27-31 Mean Corpuscular HGB Conc 33 g/dL Normal 31-36 Red Cell Distribution Width 15 % Normal 10.5-15 Platelet Count 264 10^3/uL Normal 150-450 Mean Platelet Volume 9.4 fL Normal 7.4-10.4 Abs Neutrophils 4.9 10^3/uL Normal 1.5-7.7 Abs Lymphocytes 1.9 10^3/uL Normal 1.0-4.8 Abs Monocytes 0.8 10^3/uL Normal 0-0.8 Abs Eosinophils 0.4 10^3/uL Normal 0-0.6 Abs Basophils 0.2 10^3/uL Normal 0-0.2 Abs Nucleated RBC 0.0 10^3/uL Granulocyte % 60.1 % Lymphocyte % 23.0 % Monocyte % 10.2 % Eosinophil % 4.6 % Basophil % 2.1 % Nucleated Red Blood Cells % 0.0 Comp Metabolic 09/09/2018 [facility] Sodium 135 mmol/L Normal 135-[address] [place] [address] [phone] Potassium 4.5 mmol/L Normal 3.5-5.0 Chloride 101 mmol/L Normal 101-111 Co2 Carbon Dioxide 25 mmol/L Normal 22-32 Anion Gap 9 mmol/L Normal 2-11 Glucose 95 mg/dL Normal 70-100 Blood Urea Nitrogen 27 mg/dL High 6-24 Creatinine 0.82 mg/dL Normal 0.51-0.95 BUN/Creatinine Ratio 32.9 High 8-20 Calcium 9.4 mg/dL Normal 8.6-10.3 Total Protein 6.2 g/dL Low 6.4-8.9 Albumin 4.1 g/dL Normal 3.2-5.2 Globulin 2.1 g/dL Normal 2-4 Albumin/Globulin Ratio 2.0 Normal 1-3 Total Bilirubin 0.40 mg/dL Normal 0.2-1.0 Alkaline Phosphatase 84 U/L Normal 34-104 Alt 20 U/L Normal 7-52 Ast 19 U/L Normal 13-39 Egfr Non- 68.5 >60 Egfr 82.9 >60 23 Laboratory test 09/09/2018 [facility] TSH (Thyroid 6.50 High 0.34-5.[address] Stim Horm) mcIU/[place] [address] [phone] Free T4 (Free Thyroxine) 0.96 ng/dL Normal 0.61-1.12 1 [facility] Severe Sepsis and Septic Shock Management Bundle Measure requires all lactic acids initially measuring >2.0 mmol/L be repeated. 2 Because ethnic data is not always readily available, this report includes an eGFR for both -Americans and non- Americans. The National Kidney Disease Education Program (NKDEP) does not endorse the use of the MDRD equation for patients that are not between the ages of 18 and 70, are , have extremes of body size, muscle mass, or nutritional status, or are non- or non-. According to the National Kidney Foundation, irrespective of diagnosis, the stage of the disease is based on the level of kidney function: Stage Description GFR(mL/min/1.73 m(2)) 1 Kidney damage with normal or decreased GFR 90 2 Kidney damage with mild decrease in GFR 60-89 3 Moderate decrease in GFR 30-59 4 Severe decrease in GFR 15-29 5 Kidney failure <15 (or dialysis) 3 Troponin-I testing on Plasma Separator Tubes (PST) has a known false positive rate of 0.20-0.40%. All positive troponins reflex immediately to secondary confirmatory testing. Using the [employer] DxI 800 Access Immunoassay systems, the 99th percentile upper reference limit was demonstrated to be < 0.03 ng/mL. 4 Microcytic anemia. Reviewed by Victorina Massey MD 5 [id number] 7 [id number] 8 Because ethnic data is not always readily available, this report includes an eGFR for both -Americans and non- Americans. The National Kidney Disease Education Program (NKDEP) does not endorse the use of the MDRD equation for patients that are not between the ages of 18 and 70, are , have extremes of body size, muscle mass, or nutritional status, or are non- or non-. According to the National Kidney Foundation, irrespective of diagnosis, the stage of the disease is based on the level of kidney function: Stage Description GFR(mL/min/1.73 m(2)) 1 Kidney damage with normal or decreased GFR 90 2 Kidney damage with mild decrease in GFR 60-89 3 Moderate decrease in GFR 30-59 4 Severe decrease in GFR 15-29 5 Kidney failure <15 (or dialysis) 9 Critical Result LACT:3.1 Called to [id number] at: 00:55:15 by:[id number] Read back by:[email or web address] [facility] Severe Sepsis and Septic Shock Management Bundle Measure requires all lactic acids initially measuring >2.0 mmol/L be repeated. 10 Because ethnic data is not always readily available, this report includes an eGFR for both -Americans and non- Americans. The National Kidney Disease Education Program (NKDEP) does not endorse the use of the MDRD equation for patients that are not between the ages of 18 and 70, are , have extremes of body size, muscle mass, or nutritional status, or are non- or non-. According to the National Kidney Foundation, irrespective of diagnosis, the stage of the disease is based on the level of kidney function: Stage Description GFR(mL/min/1.73 m(2)) 1 Kidney damage with normal or decreased GFR 90 2 Kidney damage with mild decrease in GFR 60-89 3 Moderate decrease in GFR 30-59 4 Severe decrease in GFR 15-29 5 Kidney failure <15 (or dialysis) 11 Standard intensity warfarin therapeutic range: 2.0-3.0 High intensity warfarin therapeutic range: 2.5-3.5 12 Verbal to [id number] by [id number] at 2353 on 11/06/18. Results read back accurately. 13 Reference ranges based on room air. 14 [id number] 15 [id number] 16 Because ethnic data is not always readily available, this report includes an eGFR for both -Americans and non- Americans. The National Kidney Disease Education Program (NKDEP) does not endorse the use of the MDRD equation for patients that are not between the ages of 18 and 70, are , have extremes of body size, muscle mass, or nutritional status, or are non- or non-. According to the National Kidney Foundation, irrespective of diagnosis, the stage of the disease is based on the level of kidney function: Stage Description GFR(mL/min/1.73 m(2)) 1 Kidney damage with normal or decreased GFR 90 2 Kidney damage with mild decrease in GFR 60-89 3 Moderate decrease in GFR 30-59 4 Severe decrease in GFR 15-29 5 Kidney failure <15 (or dialysis) 17 [id number] 18 Procedure Result Units Ref Interval Drug Screen 9 Panel, Serum or Plasma - Immunoassay Screen with Reflex to Mass Spectrometry Confirmation/Quantitation Amphetamines, S/P, screen Negative ng/mL Cutoff 30 Methamphetamine, S/P, screen Negative ng/mL Cutoff 30 Barbiturates, S/P, screen Negative ng/mL Cutoff 75 Benzodiazepines, S/P, screen Negative ng/mL Cutoff 75 Buprenorphine, S/P, screen Negative ng/mL Cutoff 1 Cannabinoids, S/P, screen Negative ng/mL Cutoff 30 Cocaine, S/P, Screen Negative ng/mL Cutoff 30 Methadone, S/P, screen Negative ng/mL Cutoff 40 Opiates, S/P, screen Positive ng/mL Cutoff 30 If the screen is positive, then confirmation by mass spectrometry will be added. Additional charges will apply. Unconfirmed positive may be useful for medical purposes, but does not meet forensic standards. Oxycodone, S/P, screen Negative ng/mL Cutoff 30 Phencyclidine, S/P, Screen Negative ng/mL Cutoff 15 Drug Screen Comments, Serum or Plasma See Note Drug Screen Comments, Serum or Plasma: INTERPRETIVE INFORMATION: Drug Screen 9 Panel, Serum or Plasma - Immunoassay Screen with Reflex to Mass Spectrometry Confirmation/Quantitation 1. Methodology: Qualitative Immunoassay Screen 2. Drugs/Drug classes reported as "Positive" are automatically reflexed to mass spectrometry confirmation/quantitation testing. An immuncassay unconfirmed positive screen result may be useful for medical purposes but does not meet forensic standards. 3. The absence of expected drug(s) and/or drug metabolite(s) may indicate non-compliance, inappropriate timing of specimen collection relative to drug administration, poor drug absorption, or limitations of testing. The concentration at which the screening test can detect a drug or metabolite varies within a drug class. Specimens for which drugs or drug classes are detected by the screen are automatically reflexed to a second, more specific technology (mass spectrometry). The concentration value must be greater than or equal to the cutoff to be reported as positive. Interpretive questions should be directed to the laboratory. 4. For medical purposes only; not valid for forensic use. Test developed and characteristics determined by [employer]. See Compliance Statement B: [employer] Opiates, Serum or Plasma, Quantitative 6-acetylmorphine, S/P, Quant <2 ng/mL INTERPRETIVE INFORMATION: Opiates, Serum or Plasma Quantitative Positive cutoff: 2 ng/mL For medical purposes only: not valid for forensic use. Identification of specific drug(s) taken by specimen donor is problematic due to common metabolites, some of which are prescription drugs themselves. The absence of expected drug(s) and /or drug metabolite(s) may indicate non-compliance, inappropriate timing of specimen collection relative to drug administration, poor drug absorption, or limitations of testing. All drugs covered are the non-glucuronidated (free) form. The concentration value must be greater than or equal to the cutoff to be reported as positive. A very small amount of an unexpected drug analyte in the presence of a large amount of an expected drug analyte may reflect pharmaceutical impurity. Interpretive questions should be directed to the laboratory. Test developed and characteristics determined by [employer]. See Compliance Statement B: [employer]/ Codeine, S/P, Quant 22 ng/mL Codeine is not a recognized metabolite of other opiates and its presence usually indicates use of a codeine-containing drug. Codeine is metabolized to morphine and hydocodone. Morphine, S/P, Quant <2 ng/mL Hydrocodone, S/P, Quant <2 ng/mL Hydromorphone, S/P, Quant <2 ng/mL Oxycodone, S/P, Quant <2 ng/mL Oxymorphone, S/P, Quant <2 ng/mL Test Performed by: [employer] [address] [place] [id number] [email or web address] Sanford Frias MD, MS, Director of Laboratories 19 Troponin-I testing on Plasma Separator Tubes (PST) has a known false positive rate of 0.20-0.40%. All positive troponins reflex immediately to secondary confirmatory testing. Using the [employer] DxI 800 Access Immunoassay systems, the 99th percentile upper reference limit was demonstrated to be < 0.03 ng/mL. 20 Because ethnic data is not always readily available, this report includes an eGFR for both -Americans and non- Americans. The National Kidney Disease Education Program (NKDEP) does not endorse the use of the MDRD equation for patients that are not between the ages of 18 and 70, are , have extremes of body size, muscle mass, or nutritional status, or are non- or non-. According to the National Kidney Foundation, irrespective of diagnosis, the stage of the disease is based on the level of kidney function: Stage Description GFR(mL/min/1.73 m(2)) 1 Kidney damage with normal or decreased GFR 90 2 Kidney damage with mild decrease in GFR 60-89 3 Moderate decrease in GFR 30-59 4 Severe decrease in GFR 15-29 5 Kidney failure <15 (or dialysis) 21 [facility] Severe Sepsis and Septic Shock Management Bundle Measure requires all lactic acids initially measuring >2.0 mmol/L be repeated. 22 Standard intensity warfarin therapeutic range: 2.0-3.0 High intensity warfarin therapeutic range: 2.5-3.5 23 Because ethnic data is not always readily available, this report includes an eGFR for both -Americans and non- Americans. The National Kidney Disease Education Program (NKDEP) does not endorse the use of the MDRD equation for patients that are not between the ages of 18 and 70, are , have extremes of body size, muscle mass, or nutritional status, or are non- or non-. According to the National Kidney Foundation, irrespective of diagnosis, the stage of the disease is based on the level of kidney function: Stage Description GFR(mL/min/1.73 m(2)) 1 Kidney damage with normal or decreased GFR 90 2 Kidney damage with mild decrease in GFR 60-89 3 Moderate decrease in GFR 30-59 4 Severe decrease in GFR 15-29 5 Kidney failure <15 (or dialysis) Procedures Date Code Description Status 02/10/201964951 Inject/Drain Joint/Bursa Major W/O US Completed 02/10/201938776 Inject/Drain Joint/Bursa Major W/O US Completed 12/28/2018 15174 Stress Test Completed 12/28/2018 77781 Myocardial Perfusion Imaging Tomographic (Spect) Completed Multiple Studies 12/20/2018 33918 EKG Tracing & Interpretation Completed 11/11/2018 28943 EKG, Interpretation Only Completed 10/10/2018 [id number] Bone Mineral Density Test Completed 09/21/2018 51842 ECHO Transthoracic, Real-Time 2D With Doppler And Completed Color Flow 09/21/2018 56080 ECHO Transthoracic, Real-Time 2D With Doppler And Completed Color Flow Medical Devices Description No Information Available Encounters Type Date Location Provider Dx Diagnosis Office Visit 02/02/2019 Rheumatology Nancy Curran, M06.09 Rheumatoid 10:00a [facility] - [facility] arthritis w/o Ccmob rheumatoid factor, multiple sites I11.9 Hypertensive heart disease without heart failure J44.9 Chronic obstructive pulmonary disease, unspecified D64.9 Anemia, unspecified J18.9 Pneumonia, unspecified organism Z79.899 Other fdc (current) drug therapy Z23 Encounter for immunization Office Visit 01/27/2019 11[facility] Noah SNuha I11.9 Hypertensive heart Of Wolfgang Alvarado, DO disease without FACC heart failure M06.9 Rheumatoid arthritis, unspecified I10 Essential (primary) hypertension D64.9 Anemia, unspecified R91.8 Other nonspecific abnormal finding of lung field F17.201 Nicotine dependence, unspecified, in remission Office Visit 01/20/2019 10:40a [facility] Internal Cynthia Ortega, I11.9 Hypertensive heart Medicine - MD disease without Ccmob heart failure J18.9 Pneumonia, unspecified organism M06.9 Rheumatoid arthritis, unspecified M19.012 Primary osteoarthritis, left shoulder M17.12 Unilateral primary osteoarthritis, left knee Office Visit 12/20/2018 10:[address] [facility] Noah SNuha R07.9 Chest pain , Of [facility] Christiano, DO unspecified FACC I11.9 Hypertensive heart disease without heart failure R05 Cough D64.9 Anemia, unspecified I25.2 Old myocardial infarction J44.9 Chronic obstructive pulmonary disease, unspecified Office Visit 11/21/2018 10:30a [facility] Internal Iliana J18.1 Lobar pneumonia, Medicine - Torsten Pelaez M.D. unspecified organism J96.01 Acute respiratory failure with hypoxia R01.1 Cardiac murmur, unspecified Z09 Encntr for f/u exam aft trtmt for cond oth than malig neoplm Office Visit 11/12/2018 9:36a [facility] Hiral Isbell, J18.1 Lobar pneumonia, Assoc,alex PANDA unspecified Hospitalists organism J96.01 Acute respiratory failure with hypoxia M06.9 Rheumatoid arthritis, unspecified I10 Essential (primary) hypertension Z93.3 Colostomy status R01.1 Cardiac murmur, unspecified Office Visit 11/11/2018 9:36a [facility] Hiral Isbell, J96.01 Acute respiratory Assoc,alex PANDA failure with Hospitalists hypoxia J18.1 Lobar pneumonia, unspecified organism I10 Essential (primary) hypertension Z93.3 Colostomy status Office Visit 11/10/2018 9:35a [facility] Hiral Dill, J18.1 Lobar pneumonia, Assoc,pc unspecified Hospitalists organism J96.01 Acute respiratory failure with hypoxia M06.9 Rheumatoid arthritis, unspecified I10 Essential (primary) hypertension Office Visit 11/09/2018 9:35a [facility] Hiral Dill, J18.1 Lobar pneumonia, Assoc,pc unspecified Hospitalists organism J96.01 Acute respiratory failure with hypoxia M06.9 Rheumatoid arthritis, unspecified Office Visit 11/08/2018 9:34a [facility] Hiral Dill, J18.9 Pneumonia, Assoc,pc unspecified Hospitalists organism M06.9 Rheumatoid arthritis, unspecified I10 Essential (primary) hypertension Office Visit 11/07/2018 9:34a [facility] Miri J96.01 Acute respiratory Assoc,pc Ina Pearson failure with Hospitalists hypoxia J18.9 Pneumonia, unspecified organism M06.9 Rheumatoid arthritis, unspecified Office Visit 09/20/2018 10:00a [facility] Internal Cynthia Ortega MD Z00.01 Encounter for Medicine [facility] general adult medical exam w abnormal findings Z12.11 Encounter for screening for malignant neoplasm of colon Z12.31 Encntr screen mammogram for malignant neoplasm of breast Z23 Encounter for immunization Z13.220 Encounter for screening for lipoid disorders Z13.1 Encounter for screening for diabetes mellitus E03.9 Hypothyroidism, unspecified I10 Essential (primary) hypertension M05.79 Rheu arthritis w rheu factor mult site w/o org/sys involv M81.0 Age-related osteoporosis w/o current pathological fracture G89.4 Chronic pain syndrome Z11.59 Encounter for screening for other viral diseases Office Visit 09/09/2018 9:40a [facility] Internal Cynthia Ortega MD M05.79 Rheu arthritis w Medicine - [facility] rheu factor mult site w/o org/sys involv E03.9 Hypothyroidism, unspecified I10 Essential (primary) hypertension R01.1 Cardiac murmur, unspecified Assessments Date Code Description Provider 03/07/2019 J44.9 Chronic obstructive pulmonary disease, Zaina Banuelos MD unspecified 03/07/2019 J98.4 Other disorders of lung Zaina Banuelos MD 03/07/2019 R06.83 Snoring Zaina Banuelos MD 02/23/2019 R05 Cough Marley Travis MD 02/23/2019 R51 Headache Marley Travis MD 02/23/2019 I10 Essential (primary) hypertension Marley Travis MD 02/23/2019 E03.9 Hypothyroidism, unspecified Marley Travis MD 02/10/2019 M06.09 Rheumatoid arthritis without rheumatoid Mohit Quiroz MD factor, multiple sites 02/10/2019 M17.12 Unilateral primary osteoarthritis, left Mohit Quiroz MD knee 02/10/2019 M19.012 Primary osteoarthritis, left shoulder Mohit Quiroz MD 02/10/2019 M19.011 Primary osteoarthritis, right shoulder Mohit Quiroz MD 02/02/2019 M06.09 Rheumatoid arthritis without rheumatoid Girishofia Magdy, [employer] factor, multiple sites 02/02/2019 I11.9 Hypertensive heart disease without heart Girishofivimal Curran, [employer] failure 02/02/2019 J44.9 Chronic obstructive pulmonary disease, Zsofia Magdy, [employer] unspecified 02/02/2019 D64.9 Anemia, unspecified Zsofia Magdy, [employer] 02/02/2019 J18.9 Pneumonia, unspecified organism Zsofia Magdy, [facility] 02/02/2019 Z79.899 Other fdc (current) drug therapy Zsofia Magdy, [facility] 02/02/2019 Z23 Encounter for immunization Zsofia Magdy, [employer] 01/27/2019 I11.9 Hypertensive heart disease without heart Noah Alvarado, DO FACC failure 01/27/2019 M06.9 Rheumatoid arthritis, unspecified Noah Alvarado, DO FACC 01/27/2019 I10 Essential (primary) hypertension Noah Alvarado, DO FACC 01/27/2019 D64.9 Anemia, unspecified Noah Alvarado, DO FACC 01/27/2019 R91.8 Other nonspecific abnormal finding of Noah Alvarado, DO FAC lung field 01/27/2019 F17.201 Nicotine dependence, unspecified, in Noah Alvarado, DO FACC remission 01/20/2019 I11.9 Hypertensive heart disease without heart Cynthia Ortega MD failure 01/20/2019 J18.9 Pneumonia, unspecified organism Cynthia Ortega MD 01/20/2019 M06.9 Rheumatoid arthritis, unspecified Cynthia Ortega MD 01/20/2019 M19.012 Primary osteoarthritis, left shoulder Cynthia Ortega MD 01/20/2019 M17.12 Unilateral primary osteoarthritis, left Cynthia Ortega MD knee 12/28/2018 R07.9 Chest pain, unspecified Noah Alvarado, DO FACC 12/20/2018 R07.9 Chest pain, unspecified Noah SNuha Alvarado, DO FACC 12/20/2018 I11.9 Hypertensive heart disease without heart Noah Alvarado, DO FACC failure 12/20/2018 R05 Cough Noah Alvarado, DO FACC 12/20/2018 D64.9 Anemia, unspecified Noah Alvarado, DO FACC 12/20/2018 I25.2 Old myocardial infarction Noah Alvarado, DO FACC 12/20/2018 J44.9 Chronic obstructive pulmonary disease, Noah Alvarado, DO FACC unspecified 11/21/2018 J18.1 Lobar pneumonia, unspecified organism Iliana Pelaez M.D. 11/21/2018 J96.01 Acute respiratory failure with hypoxia Iliana Pelaez M.D. 11/21/2018 R01.1 Cardiac murmur, unspecified Iliana Pelaez M.D. 11/21/2018 Z09 Encounter for follow-up examination after Iliana Pelaez M.D. completed treatment for conditions other than malignant neoplasm 11/12/2018 J18.1 Lobar pneumonia, unspecified organism Hiral Isbell MD 11/12/2018 J96.01 Acute respiratory failure with hypoxia Hiral Isbell MD 11/12/2018 M06.9 Rheumatoid arthritis, unspecified Hiral Isbell MD 11/12/2018 I10 Essential (primary) hypertension Hiral Isbell MD 11/12/2018 Z93.3 Colostomy status Hiral Isbell MD 11/12/2018 R01.1 Cardiac murmur, unspecified Hiral Isbell MD 11/11/2018 R94.31 Abnormal electrocardiogram [ECG] [EKG] Noah Alvarado, DO FACC 11/11/2018 J96.01 Acute respiratory failure with hypoxia Hiral Isbell MD 11/11/2018 J18.1 Lobar pneumonia, unspecified organism Hiral Isbell MD 11/11/2018 I10 Essential (primary) hypertension Hiral Isbell MD 11/11/2018 Z93.3 Colostomy status Hiral Isbell MD 11/10/2018 J18.1 Lobar pneumonia, unspecified organism Hiral Isbell MD 11/10/2018 J96.01 Acute respiratory failure with hypoxia Hiral Isbell MD 11/10/2018 M06.9 Rheumatoid arthritis, unspecified Hiral Isbell MD 11/10/2018 I10 Essential (primary) hypertension Hiral Isbell MD 11/09/2018 J18.1 Lobar pneumonia, unspecified organism Hiral Isbell MD 11/09/2018 J96.01 Acute respiratory failure with hypoxia Hiral Isbell MD 11/09/2018 M06.9 Rheumatoid arthritis, unspecified Hiral Isbell MD 11/08/2018 J18.9 Pneumonia, unspecified organism Hiral Isbell MD 11/08/2018 M06.9 Rheumatoid arthritis, unspecified Hiral Isblel MD 11/08/2018 I10 Essential (primary) hypertension Hiral Isbell MD 11/07/2018 J96.01 Acute respiratory failure with hypoxia Miri Pearson M.D. 11/07/2018 J18.9 Pneumonia, unspecified organism Miri Pearson M.D. 11/07/2018 M06.9 Rheumatoid arthritis, unspecified Miri Pearson M.D. 09/21/2018 R01.1 Cardiac murmur, unspecified Noah Alvarado, DO [facility] 09/21/2018 R01.1 Cardiac murmur, unspecified Traveling ECHO 1 09/20/2018 Z00.01 Encounter for general adult medical Cynthia Ortega MD examination with abnorma 09/20/2018 Z12.11 Encounter for screening for malignant Cynthia Ortega MD neoplasm of colon 09/20/2018 Z12.31 Encounter for screening mammogram for Cynthia Ortega MD malignant neoplasm of 09/20/2018 Z23 Encounter for immunization Cynthia Ortega MD 09/20/2018 Z13.220 Encounter for screening for lipoid Cynthia Ortega MD disorders 09/20/2018 Z13.1 Encounter for screening for diabetes Cynthia Ortega MD mellitus 09/20/2018 E03.9 Hypothyroidism, enochified Cynthia Ortega MD 09/20/2018 I10 Essential (primary) hypertension Cynthia Ortega MD 09/20/2018 M05.79 Rheumatoid arthritis with rheumatoid Cynthia Ortega MD factor of multiple site 09/20/2018 M81.0 Age-related osteoporosis without current Cynthia Ortega MD pathological fractu 09/20/2018 G89.4 Chronic pain syndrome Cynthia Ortega MD 09/20/2018 Z11.59 Encounter for screening for other viral Cytnhia Ortega MD diseases 09/09/2018 M05.79 Rheumatoid arthritis with rheumatoid Cynthia Ortega MD factor of multiple site 09/09/2018 E03.9 Hypothyroidism, kaia Ortega MD 09/09/2018 I10 Essential (primary) hypertension Cynthia Ortega MD 09/09/2018 R01.1 Cardiac murmur, enochified Cynthia Ortega MD Plan of Treatment Future Appointment(s):04/13/2019 10:30 am - Elisa French NP at [facility]06/21/2019 2:00 pm - Tyler Goodwin M.D. at [place] [facility]05/16/2019 8:45 am - Mohit Quiroz MD at [place] [facility] at [id number]/07/2019 10:30 am - BRITTANEY Urena at [facility]08/21/2019 11:00 am - Cynthia Ortega MD at [facility] Internal Medicine - [facility]03/07/2019 - Zaina Banuelos MDJ44.9 Chronic obstructive pulmonary disease, unspecifiedNew Labs:Alpha 1 Antitrypsin A1a, Ordered: 03/07/19New Orders:PFTW/Spirometry Vol Pre/Post Bronchdilat Dlco Complete, Ordered: Minute Walk, Ordered: 03/07/19Follow up:3 weeks SMJ98.4 Other disorders of lungNew Labs:C Reactive Protein, Ordered: Rheumatoid Factor, Ordered: 03/07/19CBC Auto Diff, Ordered: 03/07/19New Xrays: CT Chest W/O, Ordered: 03/07/19R06.83 SnoringNew Orders:Home Sleep Testing, Scheduled: 03/17/19 Functional Status Description No Information Available Mental Status Description No Information Available Referrals Refer to Dr Reason for Referral Status Appt Date Tyler Goodwin MD Sent 06/20/[address] [place] [address] [place] [address] [phone] Zaina Banuelos MD please evaluate pt with recurrent pneumonia, Sent 2018 single episode of hemoptysis (now resolved) and slowly declining H/H. She is a past smoker. Pt not yet scheduled [address] [place] [address] [phone] Zaina Banuelos MD pt with recurrent lobar pneumonia, COPD, past Sent smoker [address] [place] [address] [phone] Noah Alvarado DO, FACC Sent 12/20/[address] [place] [address] [phone]
[2019-05-02 15:34] LABS: Hematocrit 35 % (35-47); Hemoglobin 9.9 g/dL (12.0-16.0); Mean Corpuscular HGB Conc 28 g/dL (31-36); Mean Corpuscular Hemoglobin 19 pg (27-31); Mean Corpuscular Volume 66 fL (80-97); Mean Platelet Volume 7.8 fL (7.4-10.4); Platelet Count 520 10^3/uL (150-450); Red Blood Count 5.27 10^6 /uL (3.70-4.87); Red Cell Distribution Width 22 % (10-15); White Blood Count 7.5 10^3/uL (3.5-10.8)
[2019-05-02 15:36] LABS: ABS Basophils 0.1 10^3/ul (0-0.2); ABS Eosinophils 0.3 10^3/ul (0-0.6); ABS Lymphocytes 1.1 10^3/ul (1.0-4.8); ABS Monocytes 0.1 10^3/ul (0-0.8); Eosinophil % 3.7 %; Lymphocyte % 14.7 %; Nucleated Red Blood Cells % 0.6
[2019-05-02] MEDS ORDERED: NS 0.9% IV ONE (16:11)
[2019-05-02] MEDS ORDERED: Aztreonam (*) 2 GM in NS 0.9% 50 ML* 50 ML IVPB ONE (16:11)
[2019-05-02] MEDS ORDERED: Levofloxacin 750 MG IVPREMIX(* 750 MG/150 ML BAG IVPB ONE (16:11)
[2019-05-02 16:13] LABS: Troponin I 0.01 ng/mL (<0.03)
[2019-05-02 16:17] LABS: Albumin 4.2 g/dL (3.2-5.2); Calcium 9.2 mg/dL (8.6-10.3); Total Bilirubin 0.4 mg/dL (0.2-1.0)
[2019-05-02 16:23] LABS: Albumin/Globulin Ratio 1.6 (1-3); BUN/Creatinine Ratio 23.5 (8-20); EGFR African American 84.1 (>60); EGFR Non-African American 69.5 (>60); Globulin 2.7 g/dL (2-4); Total Protein 6.9 g/dL (6.4-8.9)
[2019-05-02] MEDS ORDERED: Morphine INJ* 2 MG/ML 1 ML SYRINGE (TWO MG - NEW SYRINGE VERSION) IV PRN ×2 (16:59→19:15)
[2019-05-02] MEDS ORDERED: Morphine INJ* 4 MG/ML 1 ML SYRINGE (NEW SYRINGE VERSION) IV ONE (17:11)
--- NOTE | 2019-05-02 17:58 | PN ---
Sepsis Event Evaluation Date of Evaluation: 05/02/19 Time of Evaluation: 17:54 Current Stage of Sepsis: Severe Sepsis Vital Signs - Last 12 Hours: Vital Signs - 12 hr Temp Pulse Resp BP Pulse Ox 05/02/19 17:36 100.1 F 109 23 149/80 100 05/02/19 17:32 106 20 86/57 100 05/02/19 17:26 106 17 149/80 93 05/02/19 17:05 121 13 107/84 99 05/02/19 17:00 98.7 F 115 21 96/64 97 05/02/19 16:34 108 20 96/64 98 05/02/19 16:08 112 17 112/68 96 05/02/19 16:00 107 20 96 05/02/19 15:00 122 21 96 05/02/19 14:37 119 83 05/02/19 14:36 98.7 F 118 22 155/91 82 05/02/19 14:34 123 155/91 78 Lactic Acid: 05/02/19 14:58 Lactic Acid 4.1 H* - Cardiopulmonary Exam Capillary Refill: Immediate Respiratory: Symmetrical Chest Expansion and Respiratory Effort, - - BS+ bilaterally with bibasilar crackles Cardiovascular: RRR - Normal S1 and S2, +SM - Peripheral Pulse Exam Radial Pulses: Bilateral Normal - Skin Exam Skin Exam: Normal Turgor - Timur Coma Scale Best Eye Response: 4 - Spontaneous Best Motor Response: 6 - Obeys Commands Best Verbal Response: 5 - Oriented Coma Scale Total: 15 Assess/Plan/Problems-Billing Assessment: Mrs Stuart is a 73yo F with PMH of rheumatoid arthritis, chronic pain, CAD, HTN, hypothyroidism, who presented to ED with dyspnea, found to have severe sepsis secondary to pneumonia. Patient is admitted to ICU, will transfer care to Dr Alvarado. Will continue to monitor closely.
[2019-05-02] MEDS ORDERED: Morphine INJ* 4 MG/ML 1 ML SYRINGE (NEW SYRINGE VERSION) ONE (18:31)
[2019-05-02] MEDS ORDERED: Morphine INJ* 4 MG/ML 1 ML SYRINGE (NEW SYRINGE VERSION) IV PRN (19:16)
[2019-05-02] MEDS: Buprenorph Patch Check Q Shift 1 NOTE MISC FOLLOW UP SCH (19:24)
--- NOTE | 2019-05-02 19:57 | HP ---
CC: Dr. Ortega; Dr. Alvarado * HISTORY AND PHYSICAL: DATE OF ADMISSION: 05/02/19 TIME OF EVALUATION: 4:35 p.m. PRIMARY CARE PROVIDER: Dr. Ortega. CONSULTING CRITICAL CARE PHYSICIAN: Dr. Alvarado. CHIEF COMPLAINT: "I don't feel well." HISTORY OF PRESENT ILLNESS: Ms. Stuart is a 73-year-old female with a past medical history of rheumatoid arthritis; chronic pain; diverticulitis, status post ostomy; anxiety; depression; hypertension; hypothyroidism; coronary heart disease; hypertrophic cardiomyopathy; prior admissions for pneumonia, who presents to the emergency room with complaints of not feeling well and shortness of breath. The patient states she came down with a cold about a week ago and although she was feeling sick, she could still manage at home. She had some productive cough with clear sputum and she had some mild shortness of breath. She denied chest pain, palpitations, fever. She did have body aches. No fever, but chills and also anorexia. She states that she was feeling "okay" until this morning when she woke up feeling very poor. She states that she could barely get up from bed. She called a nurse at [facility] and EMS was called. As per ED nurse report, the patient was found to have an oxygen saturation in the 70s while in the field and was placed on OxyMask with improvement of her oxygen saturation to 96% with 10 L of oxygen via OxyMask. The patient is very clear that she wants to be a do not resuscitate and do not intubate. The hospitalist service was called for evaluation. The patient also complains of left shoulder pain. She states this is a chronic issue for her and she is sleeping more on her left side at home to try and breathe better, so the pain is worse today. PAST MEDICAL HISTORY: 1. Rheumatoid arthritis, on methotrexate and Plaquenil. 2. Chronic pain. 3. Diverticulitis, status post colostomy. 4. Anxiety. 5. Depression. 6. Hypertension. 7. Hypothyroidism. 8. Coronary artery disease. 9. Heart murmur secondary to hypertrophic cardiomyopathy with dynamic left ventricular outflow tract obstruction. 10. Admission with severe sepsis and pneumonia in [place] in 2016. [place]. [place] [facility] [place]. MEDICATION LIST: 1. Acetaminophen/codeine 300/30 mg 2 tablets p.o. b.i.d. as needed for pain. 2. Albuterol HFA 2 puffs inhaled 4 times daily p.r.n. shortness of breath and wheezing. 3. Alprazolam 0.25 mg p.o. b.i.d. as needed for anxiety. 4. Atorvastatin 40 mg p.o. daily. 5. Butrans patch 15 mcg topical q.7 days. 6. Calcium plus vitamin D 1 tablet p.o. b.i.d. 7. Cyclobenzaprine 5 mg p.o. b.i.d. as needed for spasms. 8. Voltaren gel topical 4 times daily as needed for pain. 9. Duloxetine DR 20 mg p.o. daily. 10. Folic acid 1 mg p.o. daily. 11. Gabapentin 300 mg p.o. t.i.d. 12. Hydroxychloroquine 200 mg p.o. daily. 13. Ibuprofen 400 mg p.o. q.8 hours p.r.n. pain. 14. Levothyroxine 112 mcg p.o. daily. 15. Magnesium hydroxide/aluminum hydroxide 15 mL p.o. q.4 hours p.r.n. heartburn. 16. Methotrexate 5 mg p.o. on Wednesdays. 17. Metoprolol tartrate 50 mg p.o. b.i.d. 18. Nabumetone 500 mg p.o. t.i.d. 19. Omeprazole 20 mg p.o. daily. 20. Potassium chloride 10 mEq p.o. b.i.d. 21. Simethicone 80 mg p.o. q.6 hours p.r.n. gas. 22. Verapamil 180 mg p.o. daily. ALLERGIES: The patient is allergic CEPHALEXIN, PENICILLINS, and SULFA; the patient has hives and shortness of breath. FAMILY HISTORY: Both parents had a history of heart disease. Father had coronary artery bypass and pacemaker, and both parents in their 80s. SOCIAL HISTORY: The patient was a smoker from age 14 to 67, half-a-pack a day. She then started smoking small cigars, but she has completely quit for the past 7 years. No history of alcohol or drug use. Surrogate decision maker is her son, Dony Stuart, phone number is [phone]. REVIEW OF SYSTEMS: A 14-point review of systems was performed and all the pertinent negative and positive findings are in the HPI. PHYSICAL EXAMINATION GENERAL: The patient is a morbidly obese, elderly lady, disheveled in appearance, lying in the ED stretcher, appears to be uncomfortable. VITAL SIGNS: Temperature 98.7, heart rate is 107, respiratory rate is 20, oxygen saturation is 96% on 10 L OxyMask, blood pressure is 96/71. HEENT: Pupils are equal. Dry mucous membranes. CHEST: Breath sounds present bilaterally with crackles in the right base. No wheezing or rhonchi. CVS: Normal S1, S2. Regular rate and rhythm with systolic murmur. ABDOMEN: Morbidly obese with a functioning colostomy in place. Bowel sounds are present. EXTREMITIES: No edema. The patient has limited passive and active range of motion of the left shoulder. There is no significant edema, erythema of the joint at this time to suggest an infectious joint process. NEURO: She is alert and oriented x3. Able to move all 4 extremities. DIAGNOSTIC STUDIES/LAB DATA: The patient had a CBC that showed WBC of 7.5, hemoglobin 9.9, hematocrit 35, platelets of 520 with 79% neutrophils. Chemistry showed a sodium of 138, potassium of 4, chloride of 103, bicarb of 23, anion gap of 12, BUN of 19, creatinine of 0.91, glucose of 124, lactic acid is 4.1, calcium is 9.2. LFTs are normal. Troponin is 0.01. BNP is 78. Chest x-ray was personally reviewed and it shows interval development of diffuse consolidation of the right lung and left lower lung. CTA of the chest, abdomen and pelvis was also personally reviewed and it shows no pulmonary arterial filling defect to suggest pulmonary embolism. No aortic intimal flap to suggest dissection. Extensive airspace disease throughout the right lung and in the left lung base with mild fibrotic changes. Infrarenal abdominal aortic aneurysm measuring up to 4.5 cm, slightly increased in size from September 2018. Status post colostomy, diverticulosis, recto/cystocele, and atherosclerosis. EKG done on 05/02/19 at 2:41 p.m. showed sinus tachycardia at 120 beats per minute with ST depressions in the lateral leads that are new when compared to her prior EKG from January 2019. She had another EKG done on 05/02/19 at 3 p.m. with similar changes. ASSESSMENT AND PLAN: Ms. Stuart is a 73-year-old female with a past medical history that includes rheumatoid arthritis, on methotrexate and Plaquenil; chronic pain; diverticulitis, status post ostomy; anxiety; depression; hypertension; hypothyroidism; coronary artery disease with remote history of myocardial infarction; heart murmur secondary to hypertrophic cardiomyopathy with dynamic left ventricular outflow tract obstruction; prior admissions for pneumonia in 2017 and 2019, who presents to the emergency room with 1 week of "cold" with productive cough and shortness of breath, worsened this morning, found to have severe sepsis secondary to community-acquired pneumonia. 1. Severe sepsis. The patient's presentation is compatible with sepsis considering her tachycardia and tachypnea. As she is immunosuppressed due to her rheumatoid arthritis and methotrexate use, I would not expect her to mount a significant leukocytosis. Her initial lactic acid is 4.1 and the source of her severe sepsis is community-acquired pneumonia. The patient received normal saline 30 mL/kg in the emergency room and on arrival to the ED, her blood pressure was normal, but it has progressed to a systolic in the 90s, so we will have to watch her closely in the intensive care unit as I am concerned she will probably progress to septic shock. We will check serial lactic acid levels. A critical care consultation was requested with Dr. Alvarado, who will be taking over her care. 2. Community-acquired pneumonia. The patient already had blood cultures ordered in the emergency room as well as sputum cultures. We will check legionella and pneumococcal antigens. Due to her multiple antibiotic allergies , the patient was started on aztreonam and levofloxacin in the emergency room and she will be continued on this regimen pending culture results. 3. Acute hypoxemic respiratory failure. On EMS arrival, the patient's oxygen saturation was reportedly in the 70s. She now has a saturation of 96% on 10 L OxyMask, but I am concerned that as we give her more fluids her respiratory status may deteriorate and she may require Vapotherm. I had a lengthy conversation with the patient at bedside. She is very clear that she would not want to be intubated. Considering her infiltrate, I do not think she would tolerate BiPAP, so the plan is to watch her in the intensive care unit and advance to Vapotherm depending on her respiratory status. 4. Lactic acidosis. Secondary to severe sepsis. The patient will receive fluid resuscitation and we will check serial lactic acids q.4 hours until normalization. 5. Anemia, suspect anemia of chronic disease. The patient's hemoglobin is at her baseline. We will send anemia workup. 6. Left shoulder pain. I suspect this is chronic and associated with her rheumatoid arthritis. 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 On physical examination, I do not see any signs of active arthritis or suggestion of infection, but we will check left shoulder x- ray to see if there are any other evident acute processes. I suspect her pain is probably secondary to her known degenerative disease and the fact that she has been lying more on her left side so she could breathe better. Depending on the results and her clinical course, she may need further imaging of her joint as well as may be an orthopedic consultation. We will continue pain management. 7. Chronic pain. We will continue her usual regimen with acetaminophen/codeine , Butrans patch, gabapentin, and we will add morphine IV for now as needed. 8. Coronary artery disease. The patient's EKG does show some signs of ST depression in the lateral leads and this may be sales representative consultant of demand ischemia in the setting of severe sepsis. Her first troponin was negative and we will check 3 troponins and follow the trend. 9. Anxiety and depression. We will continue her alprazolam p.r.n. as well as duloxetine. 10. DVT prophylaxis: The patient has a score of 3 on the DVT Prophylaxis Risk Assessment Guide and she will be started on subcutaneous heparin. 11. Code status was discussed with the patient. She wishes to be a do not resuscitate and do not intubate and she has a MOLST form that reflects those wishes. The form was printed and signed. Dr. Alvarado was consulted and will be taking over the patient's care. He also contacted the patient's son and gave him an update about the patient's condition. TIME SPENT: Approximately 70 minutes of critical care time was spent to complete this admission. [id number]/CPS #: [id number] CARSON
[2019-05-02] MEDS: Lactated Ringers 1000 ML Bag* 1,000 ML IV SCH (20:08)
[2019-05-02] MEDS ORDERED: NS 0.9% 500 ML* 500 ML IV SCH (21:00)
[2019-05-02] MEDS: Gabapentin CAP(*) 300 MG PO SCH (21:02)
[2019-05-02] MEDS: Norepinephrine 16MCG/ML IVPRE* 4,000 MCG/250 ML BAG IV SCH (21:20)
--- NOTE | 2019-05-02 22:00 | PN ---
Hospitalist Progress Note Date of Service: 05/02/19 ON-CALL MD NOTE: Was called by the RN for hypotension earlier, 500cc bolus was ordered, and levophed drip was ordered in case bolus did not work. Spoke with Dr. Alvarado - regarding this, and for placement of central line, he suggested we can run levophed through the peripheral line. ER physician attempted central access- patient only willing to get femoral line , does not want neck or chest to be touched. was unable to get Central line placed. at this point continue levophed peripherally.
[2019-05-02] MEDS: Heparin VIAL(*) 5000 UNITS/ML VIAL (FIVE THOUSAND) SUBCUT SCH (22:25)
[2019-05-03 00:27] LABS: Troponin I 0.04 ng/mL (<0.03)
[2019-05-03] MEDS ORDERED: NS 0.9% 500 ML* 500 ML IV ONE ×2 (00:29→01:00)
[2019-05-03] MEDS: Norepinephrine 16MCG/ML IVPRE* 4,000 MCG/250 ML BAG IV SCH ×2 (03:39→09:23)
[2019-05-03 03:41] LABS: Hematocrit 24 % (35-47); Hemoglobin 6.8 g/dL (12.0-16.0); Mean Corpuscular HGB Conc 28 g/dL (31-36); Mean Corpuscular Hemoglobin 19 pg (27-31); Mean Corpuscular Volume 67 fL (80-97); Mean Platelet Volume 7.5 fL (7.4-10.4); Platelet Count 353 10^3/uL (150-450); Red Blood Count 3.64 10^6 /uL (3.70-4.87); Red Cell Distribution Width 21 % (10-15); White Blood Count 18.2 10^3/uL (3.5-10.8)
[2019-05-03 03:49] LABS: Anion Gap 9 mmol/L (2-11); CO2 Carbon Dioxide 21 mmol/L (22-32); Calcium 7.5 mg/dL (8.6-10.3); Chloride 109 mmol/L (101-111); Potassium 4.4 mmol/L (3.5-5.0); Sodium 139 mmol/L (135-145)
[2019-05-03] MEDS: Aztreonam (*) 2 GM in NS 0.9% 100 ML* 100 ML IV SCH ×3 (03:52→20:14)
[2019-05-03 03:55] LABS: BUN/Creatinine Ratio 22.9 (8-20); Blood Urea Nitrogen 19 mg/dL (6-24); EGFR African American 81.8 (>60); EGFR Non-African American 67.6 (>60); Glucose 115 mg/dL (70-100)
[2019-05-03 04:06] LABS: Microcytosis 2+; Polychromasia 1+; Tear Drop Cells 1+
[2019-05-03 04:07] LABS: ABS Basophils 0.1 10^3/ul (0-0.2); ABS Eosinophils 0.1 10^3/ul (0-0.6); ABS Lymphocytes 0.7 10^3/ul (1.0-4.8); ABS Monocytes 0.5 10^3/ul (0-0.8); ABS Neutrophils 16.8 10^3/ul (1.5-7.7); Eosinophil % 0.4 %; Lymphocyte % 3.7 %
[2019-05-03 05:18] LABS: Total Iron Binding Capacity 435 mcg/dL (250-450); Transferrin 311 mg/dL (203-362)
[2019-05-03] MEDS: Levothyroxine TAB* 112 MCG TAB PO SCH (05:29)
[2019-05-03] MEDS: Heparin VIAL(*) 5000 UNITS/ML VIAL (FIVE THOUSAND) SUBCUT SCH ×3 (05:34→22:23)
[2019-05-03 05:58] LABS: Ferritin 22.7 ng/mL (11-307)
[2019-05-03 05:59] LABS: % Iron Saturation 5 % (15-55); Iron < 20 ug/dL (50-212)
[2019-05-03 06:01] LABS: Folate > 20.00 ng/mL (>3.99)
[2019-05-03] MEDS: Buprenorph Patch Check Q Shift 1 NOTE MISC FOLLOW UP SCH ×2 (07:18→19:38)
[2019-05-03] MEDS: Cyclobenzaprine TAB* 10 MG PO PRN ×2 (07:58→20:09)
[2019-05-03] MEDS: Acetaminophen / Codeine* #3 (300 MG/30 MG) TAB PO PRN ×2 (07:58→20:09)
[2019-05-03] MEDS: Folic Acid TAB* 1 MG PO SCH (07:59)
[2019-05-03] MEDS: ALPRAZolam TAB* 0.25 MG PO PRN ×2 (07:59→20:09)
[2019-05-03] MEDS: Gabapentin CAP(*) 300 MG PO SCH ×3 (07:59→20:26)
[2019-05-03] MEDS: DULoxetine DR CAP* 20 MG CAP.DR PO SCH (09:23)
[2019-05-03] MEDS ORDERED: Norepinephrine 16MCG/ML IVPRE* 4,000 MCG/250 ML BAG IV SCH (11:00)
[2019-05-03] MEDS: Lactated Ringers 1000 ML Bag* 1,000 ML IV SCH (12:58)
[2019-05-03] MEDS ORDERED: BUPRENORPHINE TRANSDERM SCH (14:00)
[2019-05-03] MEDS: fentaNYL* 50 MCG/ML 2 ML VIAL (100 MCG VIAL) IV SLOW PU PRN (14:05)
[2019-05-03] MEDS: Acetaminophen TAB* 325 MG PO PRN (14:06)
[2019-05-03 15:26] LABS: Influenza A Molecular NEGATIVE (Negative); Influenza B Molecular NEGATIVE (Negative)
[2019-05-03] MEDS ORDERED: Levofloxacin 750 MG IVPREMIX(* 750 MG/150 ML BAG IVPB SCH (17:00)
[2019-05-03] MEDS: Albuterol/Ipratropium NEB.SOL* Albuterol 2.5 MG/Ipratropium 0.5 MG 3 ML INH SCH ×2 (17:37→22:30)
--- NOTE | 2019-05-03 17:56 | PN ---
Date of Service: 05/03/19 Critical Care Services: Patient seen and examined. Initially refusing vapotherm today, stating she couldn't tolerate the device, however, she did become more tachypneic and dropped her saturations after laying flat for PICC line insertion this afternoon. She is visibly SOB with increased WOB, denies chest pain, no headache or fevers, states she feels terrible with pain "all over". Vital Signs: Temp Pulse Resp BP SpO2 FiO2 96.8 F 127 20 92/57 98 100 05/03/19 12:00 05/03/19 17:38 05/03/19 17:38 05/03/19 17:15 05/03/19 17:38 05/03 17:38 Physical Exam: Gen: alert, pale, ill-appearing HEENT: PERRLA, non icteric sclera, EOMs intact Lungs: course throughout lung isbell bilaterally, ins/exp wheezes with scattered rhonchi, poor air entry Cardiac: tachycardia, no murmurs gallups or rubs, regular, no ectopy on tele Abdomen: soft, non-tender, non distended, + BS x4 quad Extremities: warm and dry, no clubbing or edema Neuro: a&Ox3, no focal deficits Fluid Balance (Past 24 Hours): Intake & Output 05/01/19 05/02/19 05/03/19 05/04/19 06:59 06:59 06:59 06:59 Intake Total 2893 700 Output Total 500 300 Balance 2393 400 Weight 223 lb 1.725 oz Intake: IV Fluids 2306 LR 814 NS 1492 IVPB 263 ABX 263 Medicated IV 324 Levophed 324 Oral 700 Output: Urine 500 300 Other: Estimated Void Small Large # Voids 1 1 Labs: Laboratory Results - last 24 hr 05/02/19 05/02/19 05/02/19 14:54 17:28 18:58 WBC RBC Hgb Hct MCV MCH MCHC RDW Plt Count MPV Neut % (Auto) Lymph % (Auto) [place] % (Auto) Eos % (Auto) Baso % (Auto) Absolute Neuts (auto) Absolute Lymphs (auto) Absolute Monos (auto) Absolute Eos (auto) Absolute Basos (auto) Absolute Nucleated RBC Immature Gran % Neutrophils % Band Neutrophils % Lymphocytes % Monocytes % Nucleated RBC % Normal RBC Morphology Polychromasia Hypochromasia Anisocytosis Microcytosis Tear Drop Cells Elliptocytes Sodium Potassium Chloride Carbon Dioxide Anion Gap BUN Creatinine Est GFR ( Amer) Est GFR (Non-Af Amer) BUN/Creatinine Ratio Glucose Lactic Acid 3.4 H* Calcium Iron TIBC % Saturation Unsat Iron Binding Transferrin Ferritin Troponin I Vitamin B12 Folate Influenza A (Rapid) Negative Influenza B (Rapid) Negative Blood Type O Positive Antibody Screen Negative Crossmatch See Detail 05/02/19 05/02/19 05/02/19 18:58 21:39 23:49 WBC RBC Hgb Hct MCV MCH MCHC RDW Plt Count MPV Neut % (Auto) Lymph % (Auto) [place] % (Auto) Eos % (Auto) Baso % (Auto) Absolute Neuts (auto) Absolute Lymphs (auto) Absolute Monos (auto) Absolute Eos (auto) Absolute Basos (auto) Absolute Nucleated RBC Immature Gran % Neutrophils % Band Neutrophils % Lymphocytes % Monocytes % Nucleated RBC % Normal RBC Morphology Polychromasia Hypochromasia Anisocytosis Microcytosis Tear Drop Cells Elliptocytes Sodium Potassium Chloride Carbon Dioxide Anion Gap BUN Creatinine Est GFR ( Amer) Est GFR (Non-Af Amer) BUN/Creatinine Ratio Glucose Lactic Acid 3.6 H* Calcium Iron TIBC % Saturation Unsat Iron Binding Transferrin Ferritin Troponin I 0.01 0.02 Vitamin B12 Folate Influenza A (Rapid) Influenza B (Rapid) Blood Type Antibody Screen Crossmatch 05/03/19 05/03/19 05/03/19 00:00 03:32 03:32 WBC 18.2 H RBC 3.64 L Hgb 6.8 L Hct 24 L MCV 67 L MCH 19 L MCHC 28 L RDW 21 H Plt Count 353 MPV 7.5 Neut % (Auto) 92.5 Lymph % (Auto) 3.7 [place] % (Auto) 3.0 Eos % (Auto) 0.4 Baso % (Auto) 0.4 Absolute Neuts (auto) 16.8 H Absolute Lymphs (auto) 0.7 L Absolute Monos (auto) 0.5 Absolute Eos (auto) 0.1 Absolute Basos (auto) 0.1 Absolute Nucleated RBC 0.0 Immature Gran % 14.0 H Neutrophils % 80.0 Band Neutrophils % 14.0 H Lymphocytes % 4.0 Monocytes % 2.0 Nucleated RBC % 0.0 Normal RBC Morphology Not Reportable Polychromasia 1+ Hypochromasia 1+ Anisocytosis 2+ Microcytosis 2+ Tear Drop Cells 1+ Elliptocytes 1+ Sodium Potassium Chloride Carbon Dioxide Anion Gap BUN Creatinine Est GFR ( Amer) Est GFR (Non-Af Amer) BUN/Creatinine Ratio Glucose Lactic Acid 2.8 H* Calcium Iron TIBC % Saturation Unsat Iron Binding Transferrin Ferritin Troponin I 0.04 H* Vitamin B12 Folate Influenza A (Rapid) Influenza B (Rapid) Blood Type Antibody Screen Crossmatch 05/03/19 05/03/19 05/03/19 03:32 03:32 12:35 WBC RBC Hgb Hct MCV MCH MCHC RDW Plt Count MPV Neut % (Auto) Lymph % (Auto) [place] % (Auto) Eos % (Auto) Baso % (Auto) Absolute Neuts (auto) Absolute Lymphs (auto) Absolute Monos (auto) Absolute Eos (auto) Absolute Basos (auto) Absolute Nucleated RBC Immature Gran % Neutrophils % Band Neutrophils % Lymphocytes % Monocytes % Nucleated RBC % Normal RBC Morphology Polychromasia Hypochromasia Anisocytosis Microcytosis Tear Drop Cells Elliptocytes Sodium 139 Potassium 4.4 Chloride 109 Carbon Dioxide 21 L Anion Gap 9 BUN 19 Creatinine 0.83 Est GFR ( Amer) 81.8 Est GFR (Non-Af Amer) 67.6 BUN/Creatinine Ratio 22.9 H Glucose 115 H Lactic Acid 2.2 H* Calcium 7.5 L Iron < 20 L TIBC 435 % Saturation 5 L Unsat Iron Binding < 420 Transferrin 311 Ferritin 22.7 Troponin I Vitamin B12 168 L Folate > 20.00 Influenza A (Rapid) Influenza B (Rapid) Blood Type O Positive Antibody Screen Crossmatch Studies: Patient Name: GENA ATKINSON Medical Record#: [id number] Ordering Physician: Linh Borja MD Acct.#: [id number] : 1945 Age: 73 Sex: F Location: EMERGENCY DEPARTMENT Exam Date: 05/02/19 1506 ADM Status: REG ER Order Information: CTA CHEST/ABD/PEL Accession Number: [id number] CPT: 55960 HISTORY: cp, hypoxia COMPARISONS: September 10, 2018, chest radiograph dated May 02, 2018 TECHNIQUE: Multiple contiguous axial CT scans were obtained of the chest, abdomen, and pelvis after the administration of intravenous contrast. Coronal and sagittal multiplanar reformations are submitted for review.. 3-D volumetric reconstructions of the aorta are also submitted for review. FINDINGS: CHEST NECK AND THYROID: The lower neck and thyroid are unremarkable. CHEST WALL: There is no lower cervical, axillary, or supraclavicular lymphadenopathy by size criteria. HEART AND PERICARDIUM: The heart is unremarkable. AORTA AND PULMONARY VASCULATURE: The aorta is tortuous. There is mild atherosclerosis of the thoracic aorta. There is no pulmonary arterial filling defect to suggest pulmonary embolism. There is no thoracic aortic aneurysm. There is no intraluminal flap to suggest dissection. MEDIASTINUM: There are subcentimeter short axis mediastinal lymph nodes. There is no mediastinal lymphadenopathy by size criteria. DANNIELLE: There is no hilar lymphadenopathy by size criteria. AIRWAY AND ESOPHAGUS: The airway is unremarkable, without endobronchial filling defect. The esophagus is grossly normal. LUNG PARENCHYMA: There is a diffuse pattern of groundglass opacification consolidation throughout the right lung and to lesser extent of the left lung base. There is subpleural interlobular septal thickening and honeycombing most pronounced in the left lower lung, similar to the previous CT examination PLEURA: No pleural abnormalities are noted. BONES AND SOFT TISSUES: Degenerative changes are noted. ABDOMEN/PELVIS: LIVER: The liver is normal in shape, size, contour, and attenuation. BILE DUCTS: There is no intrahepatic or extrahepatic biliary dilatation. GALLBLADDER: The gallbladder is not visualized. Surgical clips are noted in the gallbladder fossa. PANCREAS: The pancreas is normal, without mass or ductal dilatation. SPLEEN: Normal in size and appearance. UPPER GI TRACT: Evaluation of the gastrointestinal tract is limited by incomplete gastric distention. The upper GI tract is unremarkable. SMALL BOWEL & MESENTERY: The small bowel is normal in contour, course, and caliber. [facility] Patient Name:GENA ATKINSON MR: [id number] : 1945 There is no obstruction or dilatation. COLON: A colostomy is noted. There is a parastomal fat-containing hernia. There are diverticula of the descending colon and the rectosigmoid stump. There is a rectocele. ADRENALS: Normal bilaterally. KIDNEYS: The kidneys are normal in shape, size, contour, and axis. There is no hydronephrosis or nephrolithiasis. BLADDER: There is a cystocele. PELVIC ORGANS: The pelvic organs are not visualized. AORTA: There is aneurysmal dilatation of the infrarenal abdominal aorta. This measures approximately 4.8 x 4.7 cm in transverse orthogonal dimension, somewhat increased from 4.2 x 4.5 cm when measured at comparable levels on the previous CT examination. There is atherosclerosis of the aorta and its branches. IVC: Unremarkable LYMPH NODES: There is no lymphadenopathy by size criteria. ABDOMINAL WALL: There is no evidence for abdominal wall hernia. BONES AND SOFT TISSUES: There are mild diffuse degenerative changes. OTHER: None IMPRESSION: 1. NO PULMONARY ARTERIAL FILLING DEFECT TO SUGGEST PULMONARY EMBOLISM. 2. NO AORTIC INTIMAL FLAP TO SUGGEST DISSECTION. 3. EXTENSIVE AIRSPACE DISEASE THROUGHOUT THE RIGHT LUNG AND IN THE LEFT LUNG BASE. 4. AGAIN NOTED ARE MILD FIBROTIC CHANGES. 5. INFRARENAL ABDOMINAL AORTIC ANEURYSM MEASURING UP TO 4.5 CM, SLIGHTLY INCREASED IN SIZE FROM SEPTEMBER 10, 2018. 6. STATUS POST COLOSTOMY. 7. DIVERTICULOSIS 8. RECTOCYSTOCELE. 9. ATHEROSCLEROSIS.. Nutrition: Regular unrestricted diet Impression: Mrs Atkinson is a 73yo F with PMH of rheumatoid arthritis, chronic pain, CAD, HTN, hypothyroidism, who presented to ED with dyspnea, initially diagnosed on 04/14/2019 with PNA, found to now have severe sepsis secondary to CAP, failed outpatient treatment. Diagnoses: 1. Bilateral Klebsiella Pneumonia/CAP 2. Acute Hypoxic Respiratory Failure 3. Acute on Chronic Iron Deficient Anemia 4. Severe Sepsis 2/2 CAP 5. Hx of chronic pain 2/2 RA 6. Hx of COPD 7. Hx of Hypertrophic Cardiomyopathy Plan: Neuro - Alert, mentating appropriately - Supportive care CV - Sinus tach in setting of sepsis/PNA - Titrating norepinephrine to MAP of 65 - Continue tele - Continue IVF and monitor for overload - PICC line inserted - Mild troponinemia in setting of demand ischemia, no chest pain at present, however, had chest pain in ED which is resolved. No EKG changes noted and per report, no resport to NTG. Seems chest pain was r/t pulmonary source and is now improved - May benefit from ischemic workup after acute illness is resolved, consider echo if any further issues or concern for NSTEMI Pulm - Start duonebs Q4h with metanebs to mobilize secretions, appears to have plugged when laying flat for PICC line and desatted on salter - Titrate vapotherm and wean as tolerated, RR improved - Narrow to aztreonam based on sputum today, levaquin DCd - Continue pulmonary toilet GI - Regular diet - Colostomy care Renal - Renal function normal with appropriate UOP Musculoskeletal/Skin - OOB to chair tomorrow - Continue home pain meds for RA/chronic pain, limit for sedation - PT/OT Endocrine - No issues, continue home dose levothyroxine ID - Positive klebsiella in sputum - CXR as above with bilateral infiltrates - Legionella and strep pneumo antigens are negative - Follow blood cx NTD, remains afebrile - Continue aztreonam, follow sensitivities - Allergy to PCN Psychosocial - Anxiolytics PRN DVT Prophy - HSQ Q8h Lines: Right UE PICC inserted 05/03/2019 Code Status: DNR/DNI, ok for pressors and non-invasive respiratory intervention Critical Care Time: 60 minutes
--- NOTE | 2019-05-03 20:52 | PN ---
Hospitalist Progress Note Date of Service: 05/03/19 ON-CALL MD NOTE: 8:52PM: Was called for tachypnea, tachycardia. Upon evaluating, patient is in respiratory distress. Having tachypnea, with crackles and wheezing regular tachycardia. - SOB: could be due to fluid overload vs. COPD /bronchospams/reactive airway: will give one dose solumedrol 125mg IV X one, then solu-medrol 40mg IV Q8hrs, continue nebs, d/c IV fluids, check Chest-xray and re-evaluate. 12:05AM: Upon re-evaluation, tachycardia and tachypnea are improving. RR: 22, HR: 128 Chest xray: almost complete opacification of the right lung field, and pulmonary edema at the left lung field. Will make NPO incentive spirometry May require bronchoscopy for possible mucus plugging. Continue to monitor. Has improved, if respiratory status worsens, can give lasix, IV fluids were d/c' ed earlier.
[2019-05-03] MEDS ORDERED: methylPREDNISolone 125 MG* 2 ML VIAL IV ONE (21:00)
[2019-05-04] MEDS: Albuterol/Ipratropium NEB.SOL* Albuterol 2.5 MG/Ipratropium 0.5 MG 3 ML INH SCH ×3 (04:03→11:06)
[2019-05-04] MEDS: Aztreonam (*) 2 GM in NS 0.9% 100 ML* 100 ML IV SCH ×3 (04:31→19:37)
[2019-05-04 04:55] LABS: Hematocrit 26 % (35-47); Hemoglobin 7.9 g/dL (12.0-16.0); Mean Corpuscular HGB Conc 30 g/dL (31-36); Mean Corpuscular Hemoglobin 21 pg (27-31); Mean Corpuscular Volume 69 fL (80-97); Mean Platelet Volume 8.6 fL (7.4-10.4); Platelet Count 281 10^3/uL (150-450); Red Blood Count 3.85 10^6 /uL (3.70-4.87); Red Cell Distribution Width 24 % (10-15); White Blood Count 16.1 10^3/uL (3.5-10.8)
[2019-05-04 05:10] LABS: BUN/Creatinine Ratio 28.8 (8-20); Calcium 7.1 mg/dL (8.6-10.3); EGFR African American 106.5 (>60)
[2019-05-04 05:30] LABS: Polychromasia 1+
[2019-05-04 05:31] LABS: Microcytosis 1+
[2019-05-04 05:33] LABS: ABS Lymphocytes 0.2 10^3/ul (1.0-4.8); ABS Monocytes 0.2 10^3/ul (0-0.8); ABS Neutrophils 15.6 10^3/ul (1.5-7.7); Eosinophil % 0.2 %; Lymphocyte % 1.4 %; Nucleated Red Blood Cells % 0.1
[2019-05-04] MEDS: Levothyroxine TAB* 112 MCG TAB PO SCH ×2 (05:49→10:10)
[2019-05-04] MEDS: methylPREDNISolone SOD 40 MG* 1 ML VIAL IV SCH ×3 (05:53→21:38)
[2019-05-04] MEDS: Heparin VIAL(*) 5000 UNITS/ML VIAL (FIVE THOUSAND) SUBCUT SCH ×3 (05:54→21:38)
[2019-05-04] MEDS: Buprenorph Patch Check Q Shift 1 NOTE MISC FOLLOW UP SCH ×3 (07:30→19:12)
[2019-05-04] MEDS: Gabapentin CAP(*) 300 MG PO SCH ×3 (10:10→21:38)
[2019-05-04] MEDS: Folic Acid TAB* 1 MG PO SCH (10:10)
[2019-05-04] MEDS: DULoxetine DR CAP* 20 MG CAP.DR PO SCH (10:10)
[2019-05-04] MEDS: Albuterol 2.5 MG/3 ML NEB.SOL* (0.083%) INH SCH ×2 (12:17→19:23)
--- NOTE | 2019-05-04 16:46 | PN ---
Date of Service: 05/04/19 Critical Care Services: Patient seen and examined. Events from overnight noted. CXR from overnight reviewed. O2 sats >94% on vapotherm throughout the day today, remains tachy, but no hypotension and no fever. Has generalized complaints of pain, but denies chest pain. Does appear dyspneic but this correlated to when patient removed vapotherm and had some confusion. Currently, she appears to be appropriate and more comfortable. Vital Signs: Temp Pulse Resp BP SpO2 FiO2 99.2 F 114 22 140/91 100 100 05/04/19 16:00 05/04/19 14:00 05/04/19 14:00 05/04/19 14:00 05/04/19 14:00 05/04 12:18 Physical Exam: Gen: Alert, pale, ill appearing HEENT: PERRLA, non-icteric sclera Lungs: course, rhonchorous, improved air entry bilaterally Cardiac: +s1s2, tachycardic, no murmurs or rubs Abdomen: positive BS x 4 quad, non distended, non tender, colostomy in place LLQ Extremities: No clubbing or edema, dressing to right knee, tenderness over bilateral knees, some generalized pain with palpation over large joints Neuro: A&Ox3, no focal deficits Fluid Balance (Past 24 Hours): Intake & Output 05/02/19 05/03/19 05/04/19 05/05/19 06:59 06:59 06:59 06:59 Intake Total 2893 3929.7 748 Output Total 500 300 Balance 2393 3629.7 748 Weight 223 lb 1.725 oz Intake: IV Fluids 2306 1481 348 ABX 341 LR 814 663 164 NS 1492 477 184 IVPB 263 ABX 263 Medicated IV 324 201.7 Levophed 324 201.7 Oral 1660 400 Packed Cells 587 Output: Urine 500 300 Other: Estimated Void Small Large Large # Voids 1 1 500 Labs: Laboratory Results - last 24 hr 05/04/19 05/04/19 04:35 04:35 WBC 16.1 H RBC 3.85 Hgb 7.9 L Hct 26 L MCV 69 L MCH 21 L MCHC 30 L RDW 24 H Plt Count 281 MPV 8.6 Neut % (Auto) 97.0 Lymph % (Auto) 1.4 [place] % (Auto) 1.2 Eos % (Auto) 0.2 Baso % (Auto) 0.2 Absolute Neuts (auto) 15.6 H Absolute Lymphs (auto) 0.2 L Absolute Monos (auto) 0.2 Absolute Eos (auto) 0.0 Absolute Basos (auto) 0.0 Absolute Nucleated RBC 0.0 Nucleated RBC % 0.1 Polychromasia 1+ Anisocytosis 2+ Microcytosis 1+ Macrocytosis 1+ Hem Pathologist Commnt Sodium 137 Potassium 4.0 Chloride 111 Carbon Dioxide 19 L Anion Gap 7 BUN 19 Creatinine 0.66 Est GFR ( Amer) 106.5 Est GFR (Non-Af Amer) 88.0 BUN/Creatinine Ratio 28.8 H Glucose 157 H Calcium 7.1 L Studies: Patient Name: GENA ATKINSON Medical Record#: [id number] Ordering Physician: Flaquita Sharp MD Acct.#: [id number] : 1945 Age: 73 Sex: F Location: [facility]ARE UNIT Exam Date: 05/03/192050 ADM Status: ADM IN Order Information: CHEST AP/PORT Accession Number: [id number] CPT: 44932 INDICATION: Shortness of breath. COMPARISON: Comparison is made with prior chest x-ray studies from February 06, 2019 and May 02, 2019. Correlation is also made with a CT of the chest from May 02, 2019. TECHNIQUE: 2 portable films of the chest were obtained. FINDINGS: The heart appears within normal limits in size. There is a PICC present entering on the right side. The catheter tip projects over the right atrium. There is a dense infiltrate present throughout the right lung which has progressed from the prior study. There is also a patchy infiltrate in the left midlung which is new. IMPRESSION: BILATERAL INFILTRATES WITH INTERVAL PROGRESSION. Patient Name: GENA ATKINSON Medical Record#: [id number] Ordering Physician: Linh Borja MD Acct.#: [id number] : 1945 Age: 73 Sex: F Location: EMERGENCY DEPARTMENT Exam Date: 05/02/19 1506 ADM Status: REG ER Order Information: CTA CHEST/ABD/PEL Accession Number: [id number] CPT: 06948 HISTORY: cp, hypoxia COMPARISONS: September 10, 2018, chest radiograph dated May 02, 2018 TECHNIQUE: Multiple contiguous axial CT scans were obtained of the chest, abdomen, and pelvis after the administration of intravenous contrast. Coronal and sagittal multiplanar reformations are submitted for review.. 3-D volumetric reconstructions of the aorta are also submitted for review. FINDINGS: CHEST NECK AND THYROID: The lower neck and thyroid are unremarkable. CHEST WALL: There is no lower cervical, axillary, or supraclavicular lymphadenopathy by size criteria. HEART AND PERICARDIUM: The heart is unremarkable. AORTA AND PULMONARY VASCULATURE: The aorta is tortuous. There is mild atherosclerosis of the thoracic aorta. There is no pulmonary arterial filling defect to suggest pulmonary embolism. There is no thoracic aortic aneurysm. There is no intraluminal flap to suggest dissection. MEDIASTINUM: There are subcentimeter short axis mediastinal lymph nodes. There is no mediastinal lymphadenopathy by size criteria. DANNIELLE: There is no hilar lymphadenopathy by size criteria. AIRWAY AND ESOPHAGUS: The airway is unremarkable, without endobronchial filling defect. The esophagus is grossly normal. LUNG PARENCHYMA: There is a diffuse pattern of groundglass opacification consolidation throughout the right lung and to lesser extent of the left lung base. There is subpleural interlobular septal thickening and honeycombing most pronounced in the left lower lung, similar to the previous CT examination PLEURA: No pleural abnormalities are noted. BONES AND SOFT TISSUES: Degenerative changes are noted. ABDOMEN/PELVIS: LIVER: The liver is normal in shape, size, contour, and attenuation. BILE DUCTS: There is no intrahepatic or extrahepatic biliary dilatation. GALLBLADDER: The gallbladder is not visualized. Surgical clips are noted in the gallbladder fossa. PANCREAS: The pancreas is normal, without mass or ductal dilatation. SPLEEN: Normal in size and appearance. UPPER GI TRACT: Evaluation of the gastrointestinal tract is limited by incomplete gastric distention. The upper GI tract is unremarkable. SMALL BOWEL & MESENTERY: The small bowel is normal in contour, course, and caliber. [facility] Patient Name:GENA ATKINSON MR: [id number] : 1945 There is no obstruction or dilatation. COLON: A colostomy is noted. There is a parastomal fat-containing hernia. There are diverticula of the descending colon and the rectosigmoid stump. There is a rectocele. ADRENALS: Normal bilaterally. KIDNEYS: The kidneys are normal in shape, size, contour, and axis. There is no hydronephrosis or nephrolithiasis. BLADDER: There is a cystocele. PELVIC ORGANS: The pelvic organs are not visualized. AORTA: There is aneurysmal dilatation of the infrarenal abdominal aorta. This measures approximately 4.8 x 4.7 cm in transverse orthogonal dimension, somewhat increased from 4.2 x 4.5 cm when measured at comparable levels on the previous CT examination. There is atherosclerosis of the aorta and its branches. IVC: Unremarkable LYMPH NODES: There is no lymphadenopathy by size criteria. ABDOMINAL WALL: There is no evidence for abdominal wall hernia. BONES AND SOFT TISSUES: There are mild diffuse degenerative changes. OTHER: None IMPRESSION: 1. NO PULMONARY ARTERIAL FILLING DEFECT TO SUGGEST PULMONARY EMBOLISM. 2. NO AORTIC INTIMAL FLAP TO SUGGEST DISSECTION. 3. EXTENSIVE AIRSPACE DISEASE THROUGHOUT THE RIGHT LUNG AND IN THE LEFT LUNG BASE. 4. AGAIN NOTED ARE MILD FIBROTIC CHANGES. 5. INFRARENAL ABDOMINAL AORTIC ANEURYSM MEASURING UP TO 4.5 CM, SLIGHTLY INCREASED IN SIZE FROM SEPTEMBER 10, 2018. 6. STATUS POST COLOSTOMY. 7. DIVERTICULOSIS 8. RECTOCYSTOCELE. 9. ATHEROSCLEROSIS.. Nutrition: Regular diet Impression: Mrs Atkinson is a 73yo F with PMH of rheumatoid arthritis, chronic pain, CAD, HTN, hypothyroidism, who presented to ED with dyspnea, initially diagnosed on 04/14/2019 with PNA, found to now have severe sepsis secondary to CAP, failed outpatient treatment. Diagnoses: 1. Bilateral Klebsiella Pneumonia/CAP 2. Acute Hypoxic Respiratory Failure 3. Acute on Chronic Iron Deficient Anemia 4. Severe Sepsis 2/2 CAP 5. Hx of chronic pain 2/2 RA 6. Hx of COPD 7. Hx of Hypertrophic Cardiomyopathy Plan: Neuro - Alert, mentating appropriately - Supportive care CV - Sinus tach in setting of sepsis/PNA - Titrating norepinephrine to MAP of 65 - Continue tele - IVF DCd yesterday, but remains fluid positive. Will check ECHO given hx of cardiomyopathy - PICC line inserted - Mild troponinemia in setting of demand ischemia, no chest pain at present, however, had chest pain in ED which is resolved. No EKG changes noted and per report, no resport to NTG. Seems chest pain was r/t pulmonary source and is now improved - May benefit from ischemic workup after acute illness is resolved, consider echo if any further issues or concern for NSTEMI Pulm - Continue duonebs Q4h with chest PT vest to mobilize secretions, CXR with interval progression of large right sided infiltrate, however, patient does appear to be clinically stable on vapotherm - Continue aztreonam based on sputum cx, levaquin DCd yesterday - Continue pulmonary toilet GI - Regular diet - Colostomy care Renal - Renal function normal with appropriate UOP Musculoskeletal/Skin - OOB to chair when she can tolerated, will try tomorrow - Continue home pain meds for RA/chronic pain, limit for sedation - PT/OT Endocrine - No issues, continue home dose levothyroxine ID - Positive klebsiella in sputum - Repeat CXR with worsening bilateral infiltrates R>L - Legionella and strep pneumo antigens are negative - Follow blood cx NTD, remains afebrile - Continue aztreonam, follow sensitivities - Allergy to PCN - WBC count slightly improved, 16.3 today HEME - Iron deficiency, and losses noted in setting of sepsis and acute illness - 1 unit PRBCs transfused 05/03/2019; H&H 7.9/ today, continue to follow Psychosocial - Anxiolytics PRN DVT Prophy - HSQ Q8h Lines: Right UE PICC inserted 05/03/2019 Code Status: DNR/DNI, ok for pressors and non-invasive respiratory intervention Critical Care Time: 65 minutes
[2019-05-04] MEDS: fentaNYL* 50 MCG/ML 2 ML VIAL (100 MCG VIAL) IV SLOW PU PRN (17:46)
[2019-05-04] MEDS: Acetaminophen / Codeine* #3 (300 MG/30 MG) TAB PO PRN (19:40)
[2019-05-04] MEDS: Cyclobenzaprine TAB* 10 MG PO PRN (21:37)
[2019-05-05] MEDS: Albuterol 2.5 MG/3 ML NEB.SOL* (0.083%) INH SCH ×3 (01:33→14:12)
[2019-05-05] MEDS: Aztreonam (*) 2 GM in NS 0.9% 100 ML* 100 ML IV SCH ×3 (04:14→20:14)
[2019-05-05] MEDS: fentaNYL* 50 MCG/ML 2 ML VIAL (100 MCG VIAL) IV SLOW PU PRN ×3 (05:15→18:22)
[2019-05-05] MEDS: Heparin VIAL(*) 5000 UNITS/ML VIAL (FIVE THOUSAND) SUBCUT SCH ×3 (05:16→21:56)
[2019-05-05] MEDS: methylPREDNISolone SOD 40 MG* 1 ML VIAL IV SCH ×3 (05:16→21:57)
[2019-05-05] MEDS: Levothyroxine TAB* 112 MCG TAB PO SCH (05:40)
[2019-05-05 05:50] LABS: ABS Lymphocytes 0.3 10^3/ul (1.0-4.8); ABS Monocytes 0.3 10^3/ul (0-0.8); ABS Neutrophils 14.4 10^3/ul (1.5-7.7); Hematocrit 25 % (35-47); Hemoglobin 7.4 g/dL (12.0-16.0); Mean Corpuscular HGB Conc 30 g/dL (31-36); Mean Corpuscular Hemoglobin 20 pg (27-31); Mean Corpuscular Volume 69 fL (80-97); Mean Platelet Volume 7.8 fL (7.4-10.4); Nucleated Red Blood Cells % 0.1; Platelet Count 317 10^3/uL (150-450); Red Blood Count 3.67 10^6 /uL (3.70-4.87); Red Cell Distribution Width 25 % (10-15); White Blood Count 15.1 10^3/uL (3.5-10.8)
[2019-05-05] MEDS: Buprenorph Patch Check Q Shift 1 NOTE MISC FOLLOW UP SCH ×3 (07:07→20:31)
[2019-05-05] MEDS: DULoxetine DR CAP* 20 MG CAP.DR PO SCH (11:12)
[2019-05-05] MEDS: Folic Acid TAB* 1 MG PO SCH (11:12)
[2019-05-05] MEDS: Gabapentin CAP(*) 300 MG PO SCH ×3 (11:12→20:17)
[2019-05-05] MEDS: Acetaminophen TAB* 325 MG PO PRN (11:38)
[2019-05-05] MEDS ORDERED: Furosemide IV* 10 MG/ML 10 ML VIAL (100 MG) IV ONE (13:32)
--- NOTE | 2019-05-05 17:22 | ECHO ---
*[facility]* [place] [address] Fax #: [phone] Transthoracic Echocardiogram Patient: Deanna Stuart : 1945 Study Date: 05/05/2019 Age: 73 Gender: F HR: Height: 66 in /167.6 cm BSA: 2.1 m^2 Weight: 224.5 lb /102.1 kg BMI: 36.3 kg/m^2 *Satellite Technician: * Elza Loja [facility] *Referring Physician: * Deana Owens *Reading Physician: * Zo Brady MD Indications: Edema. History: PICC line. Coronary artery disease. Hypertrophic cardiomyopathy. Outflow obstruction is present. Chronic obstructive pulmonary disease. Risk factors: Former tobacco use. Hypertension. Obese. Conclusions Summary: - Left ventricle: The cavity size is normal. Wall thickness is moderately increased. Systolic function is normal. The estimated ejection fraction is 55-60%. The outflow tract shows presence of obstruction and a velocity flow profile with a late systolic peak, typical of dynamic obstruction. The peak velocity at the obstruction is 4.7 m/s. - Mitral valve: There is systolic anterior motion of the anterior leaflet and chordal structures. There is mild regurgitation. - Aortic valve: There is trace regurgitation. - Tricuspid valve: There is mild-moderate regurgitation. - Ascending aorta: The ascending aorta is mildly dilated. - Pulmonary arteries: Systolic pressure is moderately increased. - No previous echocardiogram available. Study data: Transthoracic echocardiogram. Procedure: Transthoracic echocardiography was performed. Image quality was fair. The study was technically limited due to body habitus. Complete 2D, spectral Doppler, and color flow Doppler. Location: ICU Patient status: Inpatient. Patient room number: ICU-07. Rhythm: Tachycardia. Findings Left ventricle: The cavity size is normal. Wall thickness is moderately increased. There is a prominent septal knuckle measuring 1.9 cm. Systolic function is normal. The estimated ejection fraction is 55-60%. The outflow tract shows presence of obstruction and a velocity flow profile with a late systolic peak, typical of dynamic obstruction. The peak velocity at the obstruction is 4.7 m/s. Regional wall motion abnormalities: Hypokinesis of the apicalanteroseptal, anterolateral, inferior, and inferoseptal myocardium. There is no consistent Doppler evidence of clinically significant diastolic dysfunction. Right ventricle: The cavity size is mildly to moderately dilated. Systolic function is mildly reduced. Ventricular septum: There is septal flattening of the interventricular septum consistent with RV volume or pressure overload. Left atrium: The atrium is severely dilated. Right atrium: The atrium is mildly dilated. Mitral valve: The Mitral valve annulus appears calcified. The leaflets are moderately thickened. There is systolic anterior motion of the anterior leaflet and chordal structures. The findings are consistent with mild stenosis. There is mild regurgitation. Aortic valve: The valve is trileaflet. The leaflets are mildly thickened. Moderate focal thickening involving the noncoronary cusp. There is no evidence of stenosis. There is trace regurgitation. Tricuspid valve: The leaflets are normal thickness. There is no evidence of stenosis. There is mild-moderate regurgitation. Pulmonic valve: The leaflets are normal thickness. There is no evidence of stenosis. There is trace regurgitation. Aorta: Aortic root: The aortic root is appears normal. Ascending aorta: The ascending aorta is mildly dilated. Aortic arch: The aortic arch is appears normal. Pericardium: A prominent pericardial fat pad is present. There is no significant pericardial effusion. Pulmonary arteries: The main pulmonary artery is normal-sized. Systolic pressure is moderately increased. Systemic veins: Inferior vena cava: The vessel is normal in size. There is (>= 50%) respiratory change in the IVC dimension. Measurements Left ventricle Value Ref Aortic valve continued Value Ref JOSUE, LAX 4.6 cm 3.8 - 5.2 Peak v, S 3.51 m/sec ----- ESD, LAX 2.9 cm 2.2 - 3.5 VTI, S 91.7 cm ----- FS, LAX 38 % 45 Mean grad, S 33.0 mm Hg ----- PW, ED, LAX (H) 1.5 cm 0.6 - 0.9 Peak grad, S 49.0 mm Hg ----- FS 38 % - 45 LVOT/AV, VTI ratio 0.35 ----- PW, ED (H) 1.5 cm 0.6 - 0.9 E', lat paul, TDI (L) 8.9 cm/sec >=10.0 Mitral valve Value R ef E/e', lat paul, 17 Peak E 1.53 m/sec ---- - TDI Peak A 1.38 m/sec ----- E', med paul, TDI 12.1 cm/sec >=7.0 Decel time 176 ms - ---- E/e', med paul, 13 PHT 99 ms ---- - TDI Mean grad, D 5.0 mm Hg ----- E', avg, TDI 10.5 cm/sec Peak grad, D 12.0 mm Hg ---- - E/e', avg, TDI (H) 15 <=14 Peak E/A ratio 1.1 - ---- MVA, PHT 2.2 cm^2 ----- LVOT Value Ref Peak chalino, S 1.76 m/sec Pulmonic valve Value Ref VTI, S 32.0 cm Peak v, S 1.06 m/sec ----- Peak grad, S 12 mm Hg Peak grad, S 4.0 mm Hg ----- Mean grad, S 6 mm Hg Tricuspid valve Value Ref Ventricular septum Value Ref TR peak v (H) 3.4 m/sec <=2.8 IVS, ED (H) 1.9 cm 0.6 - 0.9 Peak RV-RA grad, S 46 mm Hg ----- Right ventricle Value Ref Aortic root Value Ref JOSUE, LAX 3.8 cm Root diam 3.6 cm <4.2 JOSUE minor ax, A4C (H) 4.2 cm 1.9 - 3.5 mid Ascending aorta Value Ref Pressure, S 49 mm Hg AAo AP diam, S 3.8 cm ----- Left atrium Value Ref Aortic arch Value Ref AP dim, ES (H) 5.50 cm 2.70 - Arch diam 2.2 cm ----- 3.80 ML dim, A4C 4.5 cm Decending aorta Value Ref SI dim, A4C 6.0 cm Rocio peak chalino 1.19 m/sec ----- Vol/bsa, ES, 1-p (H) 42 ml/m^2 11 - 40 A4C Pulmonary artery Value Ref Vol/bsa, ES, A/L (H) 49 ml/m^2 16 - 34 Pressure, S 45.0 mm Hg ----- Right atrium Value Ref Inferior vena cava Value Ref SI dim, ES (H) 5.9 cm 3.4 - 5.3 Diam 2.0 cm ----- ML dim, ES, A4C 4.3 cm 2.6 - 4.4 Estimated RAP 3 mm Hg Aortic valve Value Ref Paul diam, ED 2.3 cm Legend: (L) and (H) anabella values outside specified reference range. Prepared and electronically signed by Zo Brady MD 05/05/2019 17:22
--- NOTE | 2019-05-05 18:22 | PN ---
Date of Service: 05/05/19 Critical Care Services: Patient seen and examined. Overnight nursing notes reviewed. Patient apparently refused CPT vest overnight and was cursing at staff. She denies acute SOB, states her pain is still "all over" but does not have any specific complaints other than being tired. Vital Signs: Temp Pulse Resp BP SpO2 FiO2 98.8 F 106 21 130/81 91 80 05/05/19 16:00 05/05/19 18:00 05/05/19 18:00 05/05/19 18:00 05/05/19 18:00 05/05 17:11 Physical Exam: Gen: Alert, but sleepy HEENT: Perr[place], atraumatic, normocephalic Lungs: diminished R>L with course rhonchi throughout lung isbell Cardiac: tachy low 100s, No murmurs or rubs, regular Abdomen: benign, +BS, low output on colostomy, no diarrhea Extremities: no clubbing cyanosis or edema, joint pain over knees Neuro: A&O x3, no focal deficits Fluid Balance (Past 24 Hours): Intake & Output 05/03/19 05/04/19 05/05/19 05/06/19 06:59 06:59 06:59 06:59 Intake Total 2893 3929.7 1692 599 Output Total 234 721 7939 1800 Balance 2393 3629.7 517 -1201 Weight 223 lb 1.725 oz 225 lb 0.204 oz Intake: IV Fluids 2306 1481 492 199 ABX 341 LR 814 663 164 NS 1492 477 328 199 IVPB 263 200 ABX 263 200 Medicated IV 324 201.7 Levophed 324 201.7 Oral 1660 1000 400 Packed Cells 587 Output: Urine 598 613 0260 1600 Fan 200 Other: Estimated Void Small Large Large # Bowel Movements 1 Estimated Stool Amount Small # Voids 1 1 Labs: Laboratory Results - last 24 hr 05/05/19 05:37 WBC 15.1 H RBC 3.67 L Hgb 7.4 L Hct 25 L MCV 69 L MCH 20 L MCHC 30 L RDW 25 H Plt Count 317 MPV 7.8 Neut % (Auto) 95.6 Lymph % (Auto) 2.0 [place] % (Auto) 2.3 Eos % (Auto) 0.0 Baso % (Auto) 0.1 Absolute Neuts (auto) 14.4 H Absolute Lymphs (auto) 0.3 L Absolute Monos (auto) 0.3 Absolute Eos (auto) 0.0 Absolute Basos (auto) 0.0 Absolute Nucleated RBC 0.0 Nucleated RBC % 0.1 Studies: *[facility]* [place] [address] Fax #: [phone] Transthoracic Echocardiogram Patient: Deanna Stuart : 1945 Study Date: 05/05/2019 Age: 73 Gender: F HR: Height: 66 in /167.6 cm BSA: 2.1 m^2 Weight: 224.5 lb /102.1 kg BMI: 36.3 kg/m^2 *Stamping Bench Die Maker: * Elza Loja [facility] *Referring Physician: * Deana Owens *Reading Physician: * Zo Brady MD Indications: Edema. History: PICC line. Coronary artery disease. Hypertrophic cardiomyopathy. Outflow obstruction is present. Chronic obstructive pulmonary disease. Risk factors: Former tobacco use. Hypertension. Obese. Conclusions Summary: - Left ventricle: The cavity size is normal. Wall thickness is moderately increased. Systolic function is normal. The estimated ejection fraction is 55-60%. The outflow tract shows presence of obstruction and a velocity flow profile with a late systolic peak, typical of dynamic obstruction. The peak velocity at the obstruction is 4.7 m/s. - Mitral valve: There is systolic anterior motion of the anterior leaflet and chordal structures. There is mild regurgitation. - Aortic valve: There is trace regurgitation. - Tricuspid valve: There is mild-moderate regurgitation. - Ascending aorta: The ascending aorta is mildly dilated. - Pulmonary arteries: Systolic pressure is moderately increased. - No previous echocardiogram available. This report is only to be considered final once signed by the Provider(s) as displayed in the "<Electronically Signed by >" field (s). Absence of a signature indicates the report is in a draft status and still needs to be finalized. In the event this document was created by someone other than the signing Provider, the individual initiating the document will be listed in the "Entered by:" or "Dictated by:" isbell. Patient Name: DEANNA STUART Medical Record#: [id number] Ordering Physician: Flaquita Sharp MD Acct.#: [id number] : 1945 Age: 73 Sex: F Location: INTENSIVE CARE UNIT Exam Date: 05/03/192050 ADM Status: ADM IN Order Information: CHEST AP/PORT Accession Number: [id number] CPT: 55446 INDICATION: Shortness of breath. COMPARISON: Comparison is made with prior chest x-ray studies from February 06, 2019 and May 02, 2019. Correlation is also made with a CT of the chest from May 02, 2019. TECHNIQUE: 2 portable films of the chest were obtained. FINDINGS: The heart appears within normal limits in size. There is a PICC present entering on the right side. The catheter tip projects over the right atrium. There is a dense infiltrate present throughout the right lung which has progressed from the prior study. There is also a patchy infiltrate in the left midlung which is new. IMPRESSION: BILATERAL INFILTRATES WITH INTERVAL PROGRESSION. Patient Name: DEANNA STUART Medical Record#: [id number] Ordering Physician: Linh Borja MD Acct.#: [id number] : 1945 Age: 73 Sex: F Location: EMERGENCY DEPARTMENT Exam Date: 05/02/19 1506 ADM Status: REG ER Order Information: CTA CHEST/ABD/PEL Accession Number: [id number] CPT: 01685 HISTORY: cp, hypoxia COMPARISONS: September 10, 2018, chest radiograph dated May 02, 2018 TECHNIQUE: Multiple contiguous axial CT scans were obtained of the chest, abdomen, and pelvis after the administration of intravenous contrast. Coronal and sagittal multiplanar reformations are submitted for review.. 3-D volumetric reconstructions of the aorta are also submitted for review. FINDINGS: CHEST NECK AND THYROID: The lower neck and thyroid are unremarkable. CHEST WALL: There is no lower cervical, axillary, or supraclavicular lymphadenopathy by size criteria. HEART AND PERICARDIUM: The heart is unremarkable. AORTA AND PULMONARY VASCULATURE: The aorta is tortuous. There is mild atherosclerosis of the thoracic aorta. There is no pulmonary arterial filling defect to suggest pulmonary embolism. There is no thoracic aortic aneurysm. There is no intraluminal flap to suggest dissection. MEDIASTINUM: There are subcentimeter short axis mediastinal lymph nodes. There is no mediastinal lymphadenopathy by size criteria. DANNIELLE: There is no hilar lymphadenopathy by size criteria. AIRWAY AND ESOPHAGUS: The airway is unremarkable, without endobronchial filling defect. The esophagus is grossly normal. LUNG PARENCHYMA: There is a diffuse pattern of groundglass opacification consolidation throughout the right lung and to lesser extent of the left lung base. There is subpleural interlobular septal thickening and honeycombing most pronounced in the left lower lung, similar to the previous CT examination PLEURA: No pleural abnormalities are noted. BONES AND SOFT TISSUES: Degenerative changes are noted. ABDOMEN/PELVIS: LIVER: The liver is normal in shape, size, contour, and attenuation. BILE DUCTS: There is no intrahepatic or extrahepatic biliary dilatation. GALLBLADDER: The gallbladder is not visualized. Surgical clips are noted in the gallbladder fossa. PANCREAS: The pancreas is normal, without mass or ductal dilatation. SPLEEN: Normal in size and appearance. UPPER GI TRACT: Evaluation of the gastrointestinal tract is limited by incomplete gastric distention. The upper GI tract is unremarkable. SMALL BOWEL & MESENTERY: The small bowel is normal in contour, course, and caliber. [facility] Patient Name:DEANNA STUART MR: [id number] : 1945 There is no obstruction or dilatation. COLON: A colostomy is noted. There is a parastomal fat-containing hernia. There are diverticula of the descending colon and the rectosigmoid stump. There is a rectocele. ADRENALS: Normal bilaterally. KIDNEYS: The kidneys are normal in shape, size, contour, and axis. There is no hydronephrosis or nephrolithiasis. BLADDER: There is a cystocele. PELVIC ORGANS: The pelvic organs are not visualized. AORTA: There is aneurysmal dilatation of the infrarenal abdominal aorta. This measures approximately 4.8 x 4.7 cm in transverse orthogonal dimension, somewhat increased from 4.2 x 4.5 cm when measured at comparable levels on the previous CT examination. There is atherosclerosis of the aorta and its branches. IVC: Unremarkable LYMPH NODES: There is no lymphadenopathy by size criteria. ABDOMINAL WALL: There is no evidence for abdominal wall hernia. BONES AND SOFT TISSUES: There are mild diffuse degenerative changes. OTHER: None IMPRESSION: 1. NO PULMONARY ARTERIAL FILLING DEFECT TO SUGGEST PULMONARY EMBOLISM. 2. NO AORTIC INTIMAL FLAP TO SUGGEST DISSECTION. 3. EXTENSIVE AIRSPACE DISEASE THROUGHOUT THE RIGHT LUNG AND IN THE LEFT LUNG BASE. 4. AGAIN NOTED ARE MILD FIBROTIC CHANGES. 5. INFRARENAL ABDOMINAL AORTIC ANEURYSM MEASURING UP TO 4.5 CM, SLIGHTLY INCREASED IN SIZE FROM SEPTEMBER 10, 2018. 6. STATUS POST COLOSTOMY. 7. DIVERTICULOSIS 8. RECTOCYSTOCELE. 9. ATHEROSCLEROSIS.. Nutrition: Regular diet Impression: Mrs Stuart is a 73yo F with PMH of rheumatoid arthritis, chronic pain, CAD, HTN, hypothyroidism, who presented to ED with dyspnea, initially diagnosed on 04/14/2019 with PNA, found to now have severe sepsis secondary to CAP, failed outpatient treatment. Diagnoses: 1. Bilateral Klebsiella Pneumonia/CAP 2. Acute Hypoxic Respiratory Failure 3. Acute on Chronic Anemia, AOCD with Anemia 2/2 Critical Illness 4. Severe Sepsis 2/2 CAP, resolved 5. Hx of Chronic pain 2/2 RA 6. Hx of COPD 7. Hx of Hypertrophic Cardiomyopathy Plan: Neuro - Alert, mentating appropriately - Supportive care CV - Sinus tach in setting of sepsis/PNA - Off pressors since 05/03 - Continue tele - Mild troponinemia in setting of demand ischemia, no chest pain at present, however, had chest pain in ED which is resolved. No EKG changes noted and per report, no response to NTG. Seems chest pain was r/t pulmonary source and is now improved - May benefit from ischemic workup after acute illness is resolved - ECHO completed today, shows preserved EF, confirms hypertrophic cardiomyopathy Pulm - Did Not tolerate chest PT vest or metaneb, cursed at staff overnight and through ENTERTAINMENT MANAGER out of her room - CXR with interval progression of large right sided infiltrate, however, patient does appear to be clinically stable on vapotherm - Continue aztreonam based on sputum cx, levaquin DCd yesterday - Continue pulmonary toilet as tolerated - Continue IV solumedrol Q8h - Continue to wean vapotherm as tolerated, although some component of her presentation is likely also 2/2 underlying interstitial lung disease GI - Regular diet - Colostomy care Renal - Renal function normal with appropriate UOP, showing a negative fluid balance today - ECHO with no failure, continue to monitor I&O Musculoskeletal/Skin - OOB to chair when she can tolerate, will try again tomorrow although patient seems unmotivated - Continue home pain meds for RA/chronic pain, limit for sedation - PT/OT Endocrine - No issues, continue home dose levothyroxine ID - Positive klebsiella in sputum - Repeat CXR with worsening bilateral infiltrates R>L - Legionella and strep pneumo antigens are negative - Follow blood cx NTD, remains afebrile - Continue aztreonam, appropriate based on sensitivities - Allergy to PCN - WBC count continues to improve - Lactic acid 2.2, however, patient is afebrile and hemodynamically stable, acidosis is likely 2/2 respiratory failure and tissue ischemia in combination with beta agonist inhalation 2/2 q4h keila HEME - Iron studies reviewed, appears to be AOCD, rather than iron deficient and losses noted in setting of sepsis and acute illness - 1 unit PRBCs transfused 05/03/2019; H&H 7.08/04 today, continue to follow, may need additional transfusion Psychosocial - Anxiolytics PRN DVT Prophy - HSQ Q8h Lines: Right UE PICC inserted 05/03/2019 Code Status: DNR/DNI, ok for pressors and non-invasive respiratory intervention Critical Care Time: 50 minutes
[2019-05-06] MEDS: Aztreonam (*) 2 GM in NS 0.9% 100 ML* 100 ML IV SCH ×3 (03:12→21:09)
[2019-05-06] MEDS: methylPREDNISolone SOD 40 MG* 1 ML VIAL IV SCH ×3 (05:05→21:04)
[2019-05-06] MEDS: Heparin VIAL(*) 5000 UNITS/ML VIAL (FIVE THOUSAND) SUBCUT SCH ×3 (05:06→21:05)
[2019-05-06] MEDS: Acetaminophen / Codeine* #3 (300 MG/30 MG) TAB PO PRN ×2 (05:19→14:11)
[2019-05-06] MEDS: Levothyroxine TAB* 112 MCG TAB PO SCH (05:19)
[2019-05-06 05:24] LABS: ABS Lymphocytes 0.4 10^3/ul (1.0-4.8); ABS Monocytes 0.4 10^3/ul (0-0.8); ABS Neutrophils 9.6 10^3/ul (1.5-7.7); Hematocrit 26 % (35-47); Hemoglobin 7.9 g/dL (12.0-16.0); Lymphocyte % 3.7 %; Mean Corpuscular HGB Conc 30 g/dL (31-36); Mean Corpuscular Hemoglobin 21 pg (27-31); Mean Corpuscular Volume 68 fL (80-97); Mean Platelet Volume 7.4 fL (7.4-10.4); Nucleated Red Blood Cells % 0.1; Platelet Count 334 10^3/uL (150-450); Red Blood Count 3.79 10^6 /uL (3.70-4.87); Red Cell Distribution Width 25 % (10-15); White Blood Count 10.3 10^3/uL (3.5-10.8)
[2019-05-06 05:40] LABS: BUN/Creatinine Ratio 42.4 (8-20); Calcium 8.3 mg/dL (8.6-10.3); EGFR African American 121.2 (>60); EGFR Non-African American 100.2 (>60); Potassium 3.9 mmol/L (3.5-5.0)
[2019-05-06] MEDS: Buprenorph Patch Check Q Shift 1 NOTE MISC FOLLOW UP SCH ×2 (07:17→21:11)
[2019-05-06] MEDS: Gabapentin CAP(*) 300 MG PO SCH ×3 (08:58→21:06)
[2019-05-06] MEDS: Folic Acid TAB* 1 MG PO SCH (08:58)
[2019-05-06] MEDS: DULoxetine DR CAP* 20 MG CAP.DR PO SCH (08:58)
--- NOTE | 2019-05-06 18:52 | PN ---
Date of Service: 05/06/19 Critical Care Services: Patient seen and examined, no acute overnight events. Sats 98% on vapotherm, no chest pain and no acute SOB. Remains afebrile but mildly tachycardic with no ectopy. No further complaints. Vital Signs: Temp Pulse Resp BP SpO2 FiO2 97.9 F 95 17 159/91 96 75 05/06/19 11:48 05/06/19 17:00 05/06/19 17:00 05/06/19 17:00 05/06/19 17:00 05/06 08:00 Physical Exam: Gen: Alert, no acute distress, improved color HEENT: Atraumatic, normocephalic Lungs: Improved air entry bilaterally, scattered rhonchi also improved, less course, no wheeze Cardiac: Abdomen: +S1S2, tachy, regular, no murmurs Extremities: no clubbing or cyanosis, no edema, dressing to right knee CDI, generalized pain with palpation over large joints Neuro: A&Ox3, no focalities Fluid Balance (Past 24 Hours): I= O= Net Intake & Output 05/04/19 05/05/19 05/06/19 05/07/19 06:59 06:59 06:59 06:59 Intake Total 3929.7 1692 2019 976 Output Total 300 1175 1800 345 Balance 3629.7 517 219 631 Weight 225 lb 0.204 oz 227 lb 3.985 oz Intake: IV Fluids 1481 492 199 20 ABX 341 LR 663 164 NS 477 328 199 20 IVPB 200 210 121 ABX 200 210 NS 121 Medicated IV 201.7 Levophed 201.7 Oral 1660 1000 1610 835 Packed Cells 587 Output: Urine 300 1175 1600 345 Fan 200 Other: Estimated Void Large Large Large Date of Last Bowel 05/06/2019 Movement # Bowel Movements 1 Estimated Stool Amount Small Medium # Voids 1 2 Labs: Laboratory Results - last 24 hr 05/06/19 05/06/19 05:10 05:10 WBC 10.3 RBC 3.79 Hgb 7.9 L Hct 26 L MCV 68 L MCH 21 L MCHC 30 L RDW 25 H Plt Count 334 MPV 7.4 Neut % (Auto) 92.7 Lymph % (Auto) 3.7 [place] % (Auto) 3.5 Eos % (Auto) 0.0 Baso % (Auto) 0.1 Absolute Neuts (auto) 9.6 H Absolute Lymphs (auto) 0.4 L Absolute Monos (auto) 0.4 Absolute Eos (auto) 0.0 Absolute Basos (auto) 0.0 Absolute Nucleated RBC 0.0 Nucleated RBC % 0.1 Sodium 138 Potassium 3.9 Chloride 105 Carbon Dioxide 30 Anion Gap 3 BUN 25 H Creatinine 0.59 Est GFR ( Amer) 121.2 Est GFR (Non-Af Amer) 100.2 BUN/Creatinine Ratio 42.4 H Glucose 142 H Calcium 8.3 L Studies: *[facility]* [place] [address] Fax #: [phone] Transthoracic Echocardiogram Patient: Deanna Stuart : 1945 Study Date: 05/05/2019 Age: 73 Gender: F HR: Height: 66 in /167.6 cm BSA: 2.1 m^2 Weight: 224.5 lb /102.1 kg BMI: 36.3 kg/m^2 *Asphalt Smoother: * Elza Loja [facility] *Referring Physician: * Deana Owens *Reading Physician: * Zo Brady MD Indications: Edema. History: PICC line. Coronary artery disease. Hypertrophic cardiomyopathy. Outflow obstruction is present. Chronic obstructive pulmonary disease. Risk factors: Former tobacco use. Hypertension. Obese. Conclusions Summary: - Left ventricle: The cavity size is normal. Wall thickness is moderately increased. Systolic function is normal. The estimated ejection fraction is 55-60%. The outflow tract shows presence of obstruction and a velocity flow profile with a late systolic peak, typical of dynamic obstruction. The peak velocity at the obstruction is 4.7 m/s. - Mitral valve: There is systolic anterior motion of the anterior leaflet and chordal structures. There is mild regurgitation. - Aortic valve: There is trace regurgitation. - Tricuspid valve: There is mild-moderate regurgitation. - Ascending aorta: The ascending aorta is mildly dilated. - Pulmonary arteries: Systolic pressure is moderately increased. - No previous echocardiogram available. This report is only to be considered final once signed by the Provider(s) as displayed in the "<Electronically Signed by >" field (s). Absence of a signature indicates the report is in a draft status and still needs to be finalized. In the event this document was created by someone other than the signing Provider, the individual initiating the document will be listed in the "Entered by:" or "Dictated by:" isbell. Patient Name: DEANNA STUART Medical Record#: [id number] Ordering Physician: Flaquita Sharp MD Acct.#: [id number] : 1945 Age: 73 Sex: F Location: INTENSIVE CARE UNIT Exam Date: 05/03/192050 ADM Status: ADM IN Order Information: CHEST AP/PORT Accession Number: [id number] CPT: 04734 INDICATION: Shortness of breath. COMPARISON: Comparison is made with prior chest x-ray studies from February 06, 2019 and May 02, 2019. Correlation is also made with a CT of the chest from May 02, 2019. TECHNIQUE: 2 portable films of the chest were obtained. FINDINGS: The heart appears within normal limits in size. There is a PICC present entering on the right side. The catheter tip projects over the right atrium. There is a dense infiltrate present throughout the right lung which has progressed from the prior study. There is also a patchy infiltrate in the left midlung which is new. IMPRESSION: BILATERAL INFILTRATES WITH INTERVAL PROGRESSION. Patient Name: DEANNA STUART Medical Record#: [id number] Ordering Physician: Linh Borja MD Acct.#: [id number] : 1945 Age: 73 Sex: F Location: EMERGENCY DEPARTMENT Exam Date: 05/02/19 1506 ADM Status: REG ER Order Information: CTA CHEST/ABD/PEL Accession Number: [id number] CPT: 35212 HISTORY: cp, hypoxia COMPARISONS: September 10, 2018, chest radiograph dated May 02, 2018 TECHNIQUE: Multiple contiguous axial CT scans were obtained of the chest, abdomen, and pelvis after the administration of intravenous contrast. Coronal and sagittal multiplanar reformations are submitted for review.. 3-D volumetric reconstructions of the aorta are also submitted for review. FINDINGS: CHEST NECK AND THYROID: The lower neck and thyroid are unremarkable. CHEST WALL: There is no lower cervical, axillary, or supraclavicular lymphadenopathy by size criteria. HEART AND PERICARDIUM: The heart is unremarkable. AORTA AND PULMONARY VASCULATURE: The aorta is tortuous. There is mild atherosclerosis of the thoracic aorta. There is no pulmonary arterial filling defect to suggest pulmonary embolism. There is no thoracic aortic aneurysm. There is no intraluminal flap to suggest dissection. MEDIASTINUM: There are subcentimeter short axis mediastinal lymph nodes. There is no mediastinal lymphadenopathy by size criteria. DANNIELLE: There is no hilar lymphadenopathy by size criteria. AIRWAY AND ESOPHAGUS: The airway is unremarkable, without endobronchial filling defect. The esophagus is grossly normal. LUNG PARENCHYMA: There is a diffuse pattern of groundglass opacification consolidation throughout the right lung and to lesser extent of the left lung base. There is subpleural interlobular septal thickening and honeycombing most pronounced in the left lower lung, similar to the previous CT examination PLEURA: No pleural abnormalities are noted. BONES AND SOFT TISSUES: Degenerative changes are noted. ABDOMEN/PELVIS: LIVER: The liver is normal in shape, size, contour, and attenuation. BILE DUCTS: There is no intrahepatic or extrahepatic biliary dilatation. GALLBLADDER: The gallbladder is not visualized. Surgical clips are noted in the gallbladder fossa. PANCREAS: The pancreas is normal, without mass or ductal dilatation. SPLEEN: Normal in size and appearance. UPPER GI TRACT: Evaluation of the gastrointestinal tract is limited by incomplete gastric distention. The upper GI tract is unremarkable. SMALL BOWEL & MESENTERY: The small bowel is normal in contour, course, and caliber. [facility] Patient Name:DEANNA STUART MR: [id number] : 1945 There is no obstruction or dilatation. COLON: A colostomy is noted. There is a parastomal fat-containing hernia. There are diverticula of the descending colon and the rectosigmoid stump. There is a rectocele. ADRENALS: Normal bilaterally. KIDNEYS: The kidneys are normal in shape, size, contour, and axis. There is no hydronephrosis or nephrolithiasis. BLADDER: There is a cystocele. PELVIC ORGANS: The pelvic organs are not visualized. AORTA: There is aneurysmal dilatation of the infrarenal abdominal aorta. This measures approximately 4.8 x 4.7 cm in transverse orthogonal dimension, somewhat increased from 4.2 x 4.5 cm when measured at comparable levels on the previous CT examination. There is atherosclerosis of the aorta and its branches. IVC: Unremarkable LYMPH NODES: There is no lymphadenopathy by size criteria. ABDOMINAL WALL: There is no evidence for abdominal wall hernia. BONES AND SOFT TISSUES: There are mild diffuse degenerative changes. OTHER: None IMPRESSION: 1. NO PULMONARY ARTERIAL FILLING DEFECT TO SUGGEST PULMONARY EMBOLISM. 2. NO AORTIC INTIMAL FLAP TO SUGGEST DISSECTION. 3. EXTENSIVE AIRSPACE DISEASE THROUGHOUT THE RIGHT LUNG AND IN THE LEFT LUNG BASE. 4. AGAIN NOTED ARE MILD FIBROTIC CHANGES. 5. INFRARENAL ABDOMINAL AORTIC ANEURYSM MEASURING UP TO 4.5 CM, SLIGHTLY INCREASED IN SIZE FROM SEPTEMBER 10, 2018. 6. STATUS POST COLOSTOMY. 7. DIVERTICULOSIS 8. RECTOCYSTOCELE. 9. ATHEROSCLEROSIS.. Nutrition: Regular diet Impression: Mrs Stuart is a 73yo F with PMH of rheumatoid arthritis, chronic pain, CAD, HTN, hypothyroidism, who presented to ED with dyspnea, initially diagnosed on 04/14/2019 with PNA, found to now have severe sepsis secondary to CAP, failed outpatient treatment. Diagnoses: 1. Bilateral Klebsiella Pneumonia/CAP 2. Acute Hypoxic Respiratory Failure, improving 3. Acute on Chronic Anemia, AOCD with Anemia 2/2 Critical Illness 4. Severe Sepsis 2/2 CAP, resolved 5. Hx of Chronic pain 2/2 RA 6. Hx of COPD 7. Hypertrophic Cardiomyopathy Plan: Neuro - Alert, mentating appropriately - Supportive care CV - Sinus tach in setting of sepsis/PNA which is improving - Off pressors since 05/03 - Continue tele - Mild troponinemia in setting of demand ischemia, no chest pain at present, however, had chest pain in ED which is resolved. No EKG changes noted and per report, no response to NTG. Seems chest pain was r/t pulmonary source and is now - May benefit from ischemic workup after acute illness is resolved - ECHO completed 05/05/2019, shows preserved EF, confirms hypertrophic cardiomyopathy Pulm - Transitioned off vapotherm today, remains on 4L [place]. Desats easily 2/2 severe deconditioning but no increased WOB - CXR on 05/03/2019 with interval progression of large right sided infiltrate - Continue aztreonam based on sputum cx with klebsiella - Continue pulmonary toilet as tolerated; she does NOT like chest PT or metaneb - Continue IV solumedrol taper to Q12h tomorrow then transition to oral steroids in the next 48 hours GI - Regular diet - Colostomy care Renal - Renal function normal with appropriate UOP, slightly fluid positive but negligible - ECHO with no failure, continue to monitor I&O Musculoskeletal/Skin - Continue OOB to chair and PT/OT - Continue home pain meds for RA/chronic pain, limit for sedation, taper off IV pain meds Endocrine - No issues, continue home dose levothyroxine ID - Positive klebsiella in sputum with bilateral infiltrates - Follow blood cx NTD, remains afebrile - Continue aztreonam day 4, appropriate based on sensitivities - WBC count is normal - Lactic acid 2.2, however, patient is afebrile and hemodynamically stable, acidosis is likely 2/2 respiratory failure and tissue ischemia in combination with beta agonist inhalation 2/2 q4h duonebs HEME - Iron studies reviewed, appears to be AOCD, rather than iron deficient and losses noted in setting of sepsis and acute illness - 1 unit PRBCs transfused 05/03/2019; H&H 7.9 today, continue to follow, asymptomatic Psychosocial - Anxiolytics PRN DVT Prophy - HSQ Q8h Lines: Right UE PICC inserted 05/03/2019 Code Status: DNR/DNI, ok for pressors and non-invasive respiratory intervention Critical Care Time: 40 minutes
[2019-05-06] MEDS: Cyclobenzaprine TAB* 10 MG PO PRN (21:05)
[2019-05-06] MEDS: fentaNYL* 50 MCG/ML 2 ML VIAL (100 MCG VIAL) IV SLOW PU PRN (22:36)
[2019-05-07] MEDS: Acetaminophen / Codeine* #3 (300 MG/30 MG) TAB PO PRN ×3 (02:20→15:20)
[2019-05-07] MEDS: Aztreonam (*) 2 GM in NS 0.9% 100 ML* 100 ML IV SCH ×3 (02:21→18:49)
[2019-05-07 05:05] LABS: Hematocrit 27 % (35-47); Mean Corpuscular HGB Conc 30 g/dL (31-36); Mean Corpuscular Hemoglobin 21 pg (27-31); Mean Corpuscular Volume 69 fL (80-97); Mean Platelet Volume 7.7 fL (7.4-10.4); Platelet Count 316 10^3/uL (150-450); Red Blood Count 3.87 10^6 /uL (3.70-4.87); Red Cell Distribution Width 24 % (10-15); White Blood Count 6.5 10^3/uL (3.5-10.8)
[2019-05-07 05:13] LABS: BUN/Creatinine Ratio 45.3 (8-20); Calcium 8.3 mg/dL (8.6-10.3); EGFR African American 137.2 (>60); EGFR Non-African American 113.4 (>60)
[2019-05-07 05:28] LABS: ABS Lymphocytes 0.5 10^3/ul (1.0-4.8); ABS Monocytes 0.6 10^3/ul (0-0.8); ABS Neutrophils 5.3 10^3/ul (1.5-7.7); Microcytosis 2+; Nucleated Red Blood Cells % 0.2
[2019-05-07 05:29] LABS: Polychromasia 1+
[2019-05-07] MEDS: Levothyroxine TAB* 112 MCG TAB PO SCH (05:30)
[2019-05-07] MEDS: Heparin VIAL(*) 5000 UNITS/ML VIAL (FIVE THOUSAND) SUBCUT SCH ×3 (05:30→20:03)
[2019-05-07] MEDS: methylPREDNISolone SOD 40 MG* 1 ML VIAL IV SCH ×2 (05:30→18:16)
[2019-05-07] MEDS ORDERED: hydrALAZINE IV* 20 MG/ML VIAL IV SLOW PU ONE (06:48)
[2019-05-07] MEDS: Buprenorph Patch Check Q Shift 1 NOTE MISC FOLLOW UP SCH ×2 (07:04→19:18)
[2019-05-07] MEDS: Metoprolol Tartrate TAB* 50 mg PO SCH ×2 (07:55→20:01)
[2019-05-07] MEDS: Gabapentin CAP(*) 300 MG PO SCH ×3 (07:55→20:03)
[2019-05-07] MEDS: Folic Acid TAB* 1 MG PO SCH (07:55)
[2019-05-07] MEDS: DULoxetine DR CAP* 20 MG CAP.DR PO SCH (07:55)
[2019-05-07] MEDS: Acetaminophen TAB* 325 MG PO PRN ×2 (07:55→18:15)
[2019-05-07] MEDS: Cyanocobalamin TAB* 500 MCG PO SCH (08:47)
[2019-05-07] MEDS: Cyclobenzaprine TAB* 10 MG PO PRN ×2 (08:48→20:01)
[2019-05-07] MEDS: Verapamil SR CAP* 180 MG PO SCH (08:48)
[2019-05-07] MEDS ORDERED: Albuterol/Ipratropium NEB.SOL* Albuterol 2.5 MG/Ipratropium 0.5 MG 3 ML INH PRN (10:19)
--- NOTE | 2019-05-07 10:27 | PN ---
Date of Service: 05/07/19 Critical Care Services: Patient seen and examined. Complaining of headache. Denies acute SOB and states her breathing feels better. No acute overnight events. Afebrile. Discussed pain meds and management and ambulation and plan to transfer to the floor. Vital Signs: Temp Pulse Resp BP SpO2 FiO2 97.9 F 90 19 193/106 94 75 05/07/19 07:35 05/07/19 08:00 05/07/19 08:00 05/07/19 08:00 05/07/19 08:00 05/06 08:00 Physical Exam: Gen: Alert, NAD HEENT: Atraumatic, normocephalic, PERRLA Lungs: Course, good air entry, bilateral expiratory wheeze Cardiac: +s1s2, no murmurs or rubs, regular rate and rhythm Abdomen: soft, non-tender, +BS, colostomy Extremities: no clubbing, cyanosis or edema Neuro: A&Ox3, no focal deficits Fluid Balance (Past 24 Hours): Intake & Output 05/05/19 05/06/19 05/07/19 05/08/19 06:59 06:59 06:59 06:59 Intake Total 1692 2019 1416 Output Total 1175 1800 1205 525 Balance 517 219 211 -525 Weight 225 lb 0.204 oz 227 lb 3.985 oz 228 lb 1 oz Intake: IV Fluids 492 199 20 LR 164 NS 328 199 20 IVPB 200 210 321 ABX 200 210 200 NS 121 Oral 1000 1610 1075 Output: Urine 1175 1600 1205 525 Fan 200 Other: Estimated Void Large Large Large Date of Last Bowel 05/07/2019 Movement # Bowel Movements 1 Estimated Stool Amount Small Medium # Voids 2 Labs: Laboratory Results - last 24 hr 05/07/19 05/07/19 04:40 04:40 WBC 6.5 RBC 3.87 Hgb 8.0 L Hct 27 L MCV 69 L MCH 21 L MCHC 30 L RDW 24 H Plt Count 316 MPV 7.7 Neut % (Auto) 82.3 Lymph % (Auto) 8.0 Blanco % (Auto) 9.6 Eos % (Auto) 0.0 Baso % (Auto) 0.1 Absolute Neuts (auto) 5.3 Absolute Lymphs (auto) 0.5 L Absolute Monos (auto) 0.6 Absolute Eos (auto) 0.0 Absolute Basos (auto) 0.0 Absolute Nucleated RBC 0.0 Nucleated RBC % 0.2 Polychromasia 1+ Hypochromasia 1+ Basophilic Stippling 1+ Anisocytosis 2+ Microcytosis 2+ Sodium 141 Potassium 4.0 Chloride 106 Carbon Dioxide 30 Anion Gap 5 BUN 24 Creatinine 0.53 Est GFR ( Amer) 137.2 Est GFR (Non-Af Amer) 113.4 BUN/Creatinine Ratio 45.3 H Glucose 119 H Calcium 8.3 L Studies: *[facility]* [place] [address] Fax #: [phone] Transthoracic Echocardiogram Patient: Deanna Stuart : 1945 Study Date: 05/05/2019 Age: 73 Gender: F HR: Height: 66 in /167.6 cm BSA: 2.1 m^2 Weight: 224.5 lb /102.1 kg BMI: 36.3 kg/m^2 *Solar System Installer: * Elza Loja RDCS *Referring Physician: * Deana Owens *Reading Physician: * Zo Brady MD Indications: Edema. History: PICC line. Coronary artery disease. Hypertrophic cardiomyopathy. Outflow obstruction is present. Chronic obstructive pulmonary disease. Risk factors: Former tobacco use. Hypertension. Obese. Conclusions Summary: - Left ventricle: The cavity size is normal. Wall thickness is moderately increased. Systolic function is normal. The estimated ejection fraction is 55-60%. The outflow tract shows presence of obstruction and a velocity flow profile with a late systolic peak, typical of dynamic obstruction. The peak velocity at the obstruction is 4.7 m/s. - Mitral valve: There is systolic anterior motion of the anterior leaflet and chordal structures. There is mild regurgitation. - Aortic valve: There is trace regurgitation. - Tricuspid valve: There is mild-moderate regurgitation. - Ascending aorta: The ascending aorta is mildly dilated. - Pulmonary arteries: Systolic pressure is moderately increased. - No previous echocardiogram available. This report is only to be considered final once signed by the Provider(s) as displayed in the "<Electronically Signed by >" field (s). Absence of a signature indicates the report is in a draft status and still needs to be finalized. In the event this document was created by someone other than the signing Provider, the individual initiating the document will be listed in the "Entered by:" or "Dictated by:" isbell. Patient Name: DEANNA STUART Medical Record#: [id number] Ordering Physician: Flaquita Sharp MD Acct.#: [id number] : 1945 Age: 73 Sex: F Location: INTENSIVE CARE UNIT Exam Date: 05/03/192050 ADM Status: ADM IN Order Information: CHEST AP/PORT Accession Number: [id number] CPT: 01013 INDICATION: Shortness of breath. COMPARISON: Comparison is made with prior chest x-ray studies from February 06, 2019 and May 02, 2019. Correlation is also made with a CT of the chest from May 02, 2019. TECHNIQUE: 2 portable films of the chest were obtained. FINDINGS: The heart appears within normal limits in size. There is a PICC present entering on the right side. The catheter tip projects over the right atrium. There is a dense infiltrate present throughout the right lung which has progressed from the prior study. There is also a patchy infiltrate in the left midlung which is new. IMPRESSION: BILATERAL INFILTRATES WITH INTERVAL PROGRESSION. Patient Name: DEANNA STUART Medical Record#: [id number] Ordering Physician: Linh Borja MD Acct.#: [id number] : 1945 Age: 73 Sex: F Location: EMERGENCY DEPARTMENT Exam Date: 05/02/19 1506 ADM Status: REG ER Order Information: CTA CHEST/ABD/PEL Accession Number: [id number] CPT: 30256 HISTORY: cp, hypoxia COMPARISONS: September 10, 2018, chest radiograph dated May 02, 2018 TECHNIQUE: Multiple contiguous axial CT scans were obtained of the chest, abdomen, and pelvis after the administration of intravenous contrast. Coronal and sagittal multiplanar reformations are submitted for review.. 3-D volumetric reconstructions of the aorta are also submitted for review. FINDINGS: CHEST NECK AND THYROID: The lower neck and thyroid are unremarkable. CHEST WALL: There is no lower cervical, axillary, or supraclavicular lymphadenopathy by size criteria. HEART AND PERICARDIUM: The heart is unremarkable. AORTA AND PULMONARY VASCULATURE: The aorta is tortuous. There is mild atherosclerosis of the thoracic aorta. There is no pulmonary arterial filling defect to suggest pulmonary embolism. There is no thoracic aortic aneurysm. There is no intraluminal flap to suggest dissection. MEDIASTINUM: There are subcentimeter short axis mediastinal lymph nodes. There is no mediastinal lymphadenopathy by size criteria. DANNIELLE: There is no hilar lymphadenopathy by size criteria. AIRWAY AND ESOPHAGUS: The airway is unremarkable, without endobronchial filling defect. The esophagus is grossly normal. LUNG PARENCHYMA: There is a diffuse pattern of groundglass opacification consolidation throughout the right lung and to lesser extent of the left lung base. There is subpleural interlobular septal thickening and honeycombing most pronounced in the left lower lung, similar to the previous CT examination PLEURA: No pleural abnormalities are noted. BONES AND SOFT TISSUES: Degenerative changes are noted. ABDOMEN/PELVIS: LIVER: The liver is normal in shape, size, contour, and attenuation. BILE DUCTS: There is no intrahepatic or extrahepatic biliary dilatation. GALLBLADDER: The gallbladder is not visualized. Surgical clips are noted in the gallbladder fossa. PANCREAS: The pancreas is normal, without mass or ductal dilatation. SPLEEN: Normal in size and appearance. UPPER GI TRACT: Evaluation of the gastrointestinal tract is limited by incomplete gastric distention. The upper GI tract is unremarkable. SMALL BOWEL & MESENTERY: The small bowel is normal in contour, course, and caliber. [facility] Patient Name:DEANNA STUART MR: [id number] : 1945 There is no obstruction or dilatation. COLON: A colostomy is noted. There is a parastomal fat-containing hernia. There are diverticula of the descending colon and the rectosigmoid stump. There is a rectocele. ADRENALS: Normal bilaterally. KIDNEYS: The kidneys are normal in shape, size, contour, and axis. There is no hydronephrosis or nephrolithiasis. BLADDER: There is a cystocele. PELVIC ORGANS: The pelvic organs are not visualized. AORTA: There is aneurysmal dilatation of the infrarenal abdominal aorta. This measures approximately 4.8 x 4.7 cm in transverse orthogonal dimension, somewhat increased from 4.2 x 4.5 cm when measured at comparable levels on the previous CT examination. There is atherosclerosis of the aorta and its branches. IVC: Unremarkable LYMPH NODES: There is no lymphadenopathy by size criteria. ABDOMINAL WALL: There is no evidence for abdominal wall hernia. BONES AND SOFT TISSUES: There are mild diffuse degenerative changes. OTHER: None IMPRESSION: 1. NO PULMONARY ARTERIAL FILLING DEFECT TO SUGGEST PULMONARY EMBOLISM. 2. NO AORTIC INTIMAL FLAP TO SUGGEST DISSECTION. 3. EXTENSIVE AIRSPACE DISEASE THROUGHOUT THE RIGHT LUNG AND IN THE LEFT LUNG BASE. 4. AGAIN NOTED ARE MILD FIBROTIC CHANGES. 5. INFRARENAL ABDOMINAL AORTIC ANEURYSM MEASURING UP TO 4.5 CM, SLIGHTLY INCREASED IN SIZE FROM SEPTEMBER 10, 2018. 6. STATUS POST COLOSTOMY. 7. DIVERTICULOSIS 8. RECTOCYSTOCELE. 9. ATHEROSCLEROSIS.. Nutrition: Regular Diet Impression: Mrs Stuart is a 73yo F with PMH of rheumatoid arthritis, chronic pain, CAD, HTN, hypothyroidism, who presented to ED with dyspnea, initially diagnosed on 04/14/2019 with PNA, found to now have severe sepsis secondary to CAP, failed outpatient treatment. Diagnoses: 1. Bilateral Klebsiella Pneumonia/CAP 2. Acute Hypoxic Respiratory Failure, improving, off vapotherm 3. Acute on Chronic Anemia, AOCD with Anemia 2/2 Critical Illness 4. Severe Sepsis 2/2 CAP, resolved 5. Hx of Chronic pain 2/2 RA 6. Hx of COPD 7. Hypertrophic Cardiomyopathy, stable Plan: Neuro - Alert, mentating appropriately - Supportive care CV - Tachycardia resolved - Off pressors since 05/03 - Continue tele - Mild troponinemia in setting of demand ischemia, no chest pain at present, however, had chest pain in ED which is resolved. No EKG changes noted and per report, no response to NTG. Seems chest pain was r/t pulmonary source - May benefit from ischemic workup after acute illness is resolved - ECHO completed 05/05/2019, shows preserved EF, confirms hypertrophic cardiomyopathy - Had elevated BP this morning, restarted verapamil today, BP stable now Pulm - Transitioned off vapotherm 05/06/2019, remains on 4L salter, initial desaturations but improved overnight and this morning with no desats. Maintaining sats >92% on salter this morning - CXR on 05/03/2019 with interval progression of large right sided infiltrate - Continue aztreonam based on sputum cx with klebsiella, recommend transition to PO - Continue pulmonary toilet as tolerated; she does NOT like chest PT or metaneb , starting flutter valve today with duonebs PRN Q4h - Continue IV solumedrol, tapered to Q12h today then transition to oral steroids in the next 48 hours GI - Regular diet - Colostomy care Renal - Renal function normal with appropriate UOP, slightly fluid positive but negligible - ECHO with no failure, continue to monitor I&O Musculoskeletal/Skin - Continue OOB to chair and PT/OT - Continue home pain meds for RA/chronic pain, limit for sedation, tapered off IV pain meds, do not recommend restarting any IV pain medication - Restart methotrexate and plaquenil at discharge Endocrine - No issues, continue home dose levothyroxine ID - Positive klebsiella in sputum with bilateral infiltrates - Follow blood cx NTD, remains afebrile - Continue aztreonam day 5, appropriate based on sensitivities, recommend transition to levaquin PO for discharge/completion given allergy to PCN and 1st gen cephalosporin, other PO options are limited - WBC count is normal - Lactic acid 2.2, however, patient is afebrile and hemodynamically stable, acidosis is likely 2/2 respiratory failure and tissue ischemia in combination with beta agonist inhalation 2/2 q4h keila HEME - Iron studies reviewed, appears to be AOCD, rather than iron deficient and losses noted in setting of sepsis and acute illness - 1 unit PRBCs transfused 05/03/2019; H&H 8.0 today, continue to follow, asymptomatic - Started B12 supplementation orally Psychosocial - Anxiolytics PRN DVT Prophy - HSQ Q8h Lines: Right UE PICC inserted 05/03/2019 Code Status: DNR/DNI, ok for pressors and non-invasive respiratory intervention Disposition: Medically optimized for downgrade to telemetry floor today. Critical Care Time: 45 minutes
[2019-05-08] MEDS: Acetaminophen TAB* 325 MG PO PRN (00:32)
[2019-05-08] MEDS: Aztreonam (*) 2 GM in NS 0.9% 100 ML* 100 ML IV SCH ×3 (03:29→19:05)
[2019-05-08] MEDS: Heparin VIAL(*) 5000 UNITS/ML VIAL (FIVE THOUSAND) SUBCUT SCH ×3 (06:37→21:24)
[2019-05-08] MEDS: methylPREDNISolone SOD 40 MG* 1 ML VIAL IV SCH (06:38)
[2019-05-08] MEDS: Acetaminophen / Codeine* #3 (300 MG/30 MG) TAB PO PRN ×3 (06:40→21:23)
[2019-05-08] MEDS: Buprenorph Patch Check Q Shift 1 NOTE MISC FOLLOW UP SCH ×2 (06:42→18:57)
[2019-05-08] MEDS: Levothyroxine TAB* 112 MCG TAB PO SCH (06:42)
[2019-05-08 07:01] LABS: Hematocrit 27 % (35-47); Hemoglobin 8.3 g/dL (12.0-16.0); Mean Corpuscular HGB Conc 31 g/dL (31-36); Mean Corpuscular Hemoglobin 21 pg (27-31); Mean Corpuscular Volume 68 fL (80-97); Mean Platelet Volume 7.6 fL (7.4-10.4); Platelet Count 354 10^3/uL (150-450); Red Blood Count 4.01 10^6 /uL (3.70-4.87); Red Cell Distribution Width 25 % (10-15); White Blood Count 7.5 10^3/uL (3.5-10.8)
[2019-05-08 07:11] LABS: BUN/Creatinine Ratio 38.3 (8-20); Calcium 8.2 mg/dL (8.6-10.3); EGFR African American 157.6 (>60); EGFR Non-African American 130.3 (>60); Potassium 3.7 mmol/L (3.5-5.0)
[2019-05-08 07:22] LABS: ABS Lymphocytes 1.1 10^3/ul (1.0-4.8); ABS Monocytes 0.9 10^3/ul (0-0.8); ABS Neutrophils 5.4 10^3/ul (1.5-7.7); Eosinophil % 0.3 %; Lymphocyte % 14.7 %; Microcytosis 2+; Nucleated Red Blood Cells % 0.1; Polychromasia 1+
[2019-05-08] MEDS: Verapamil SR CAP* 180 MG PO SCH (07:53)
[2019-05-08] MEDS: Folic Acid TAB* 1 MG PO SCH (07:53)
[2019-05-08] MEDS: Metoprolol Tartrate TAB* 50 mg PO SCH ×2 (07:53→21:24)
[2019-05-08] MEDS: Cyanocobalamin TAB* 500 MCG PO SCH (07:53)
[2019-05-08] MEDS: Gabapentin CAP(*) 300 MG PO SCH ×3 (07:53→21:22)
[2019-05-08] MEDS: ALPRAZolam TAB* 0.25 MG PO PRN (09:41)
[2019-05-08] MEDS: DULoxetine DR CAP* 20 MG CAP.DR PO SCH (10:25)
--- NOTE | 2019-05-08 15:48 | PN ---
Subjective Date of Service: 05/08/19 Interval History: Less SOB today, little cough. No new c/o. Objective Active Medications: Acetaminophen (Tylenol Tab*) 650 mg PO Q6H PRN PRN Reason: MILD PAIN or TEMP > 100.4 Last Admin: 05/08/19 00:32 Dose: 650 mg Acetaminophen/Codeine Phosphate (Tylenol/Codeine 30 Mg Tab*) 2 tab PO Q6H PRN PRN Reason: PAIN - MODERATE Last Admin: 05/08/19 13:56 Dose: 2 tab Albuterol/Ipratropium (Duoneb (Albuterol 2.5 Mg/Ipratropium 0.5 Mg)) 1 neb INH Q4H PRN PRN Reason: SOB/WHEEZING Alprazolam (Xanax Tab*) 0.25 mg PO BID PRN PRN Reason: ANXIETY Last Admin: 05/08/19 09:41 Dose: 0.25 mg Buprenorphine (Butrans 15 Mcg Patch(Nf)) 15 mcg TRANSDERM Q168H [facility] Last Admin: 05/03/19 13:04 Dose: 15 mcg Cyanocobalamin (Vitamin B12 Tab*) 1,000 mcg PO DAILY [facility] Last Admin: 05/08/19 07:53 Dose: 1,000 mcg Cyclobenzaprine HCl (Flexeril Tab*) 5 mg PO BID PRN PRN Reason: SPASMS Last Admin: 05/07/19 20:01 Dose: 5 mg Duloxetine HCl (Cymbalta Cap*) 20 mg PO DAILY [facility] Last Admin: 05/08/19 10:25 Dose: 20 mg Folic Acid (Folvite Tab*) 1 mg PO DAILY [facility] Last Admin: 05/08/19 07:53 Dose: 1 mg Gabapentin (Neurontin Cap(*)) 300 mg PO TID [facility] Last Admin: 05/08/19 13:56 Dose: 300 mg Heparin Sodium (Porcine) (Heparin Vial(*)) 5,000 units SUBCUT Q8HR [facility] Last Admin: 05/08/19 13:56 Dose: 5,000 units Heparin Sodium (Porcine) (Heparin Flush Picc/Ml/Cvc(*)) 1 - 3 ml FLUSH 0600, 1800 [facility]; Protocol Last Admin: 05/08/19 06:40 Dose: 3 ml Aztreonam 2 gm/ Sodium (Chloride) 100 mls @ 100 mls/hr IV Q8H [facility] Last Admin: 05/08/19 12:09 Dose: 100 mls/hr Levothyroxine Sodium (Synthroid Tab*) 112 mcg PO DAILY@0600 [facility] Last Admin: 05/08/19 06:42 Dose: 112 mcg Methylprednisolone Sodium Succinate (Solu-Medrol 40 Mg) 40 mg IV Q12H [facility] Last Admin: 05/08/19 06:38 Dose: 40 mg Metoprolol Tartrate (Lopressor Tab*) 50 mg PO BID [facility] Last Admin: 05/08/19 07:53 Dose: 50 mg Pharmacy Profile Note (Buprenorph Patch Check Q Shift) 1 note FOLLOW UP 0700, 1900 [facility] Last Admin: 05/08/19 06:42 Dose: 1 note Verapamil HCl (Calan Sr Cap*) 180 mg PO DAILY [facility] Last Admin: 05/08/19 07:53 Dose: 180 mg Vital Signs - 8 hr 05/08/19 05/08/19 05/08/19 07:45 07:53 09:41 Temperature 98.7 F Pulse Rate 76 Respiratory 18 20 22 Rate Blood Pressure 178/100 (mmHg) O2 Sat by Pulse 96 Oximetry 05/08/19 05/08/19 05/08/19 10:26 12:15 13:56 Temperature Pulse Rate Respiratory 20 20 20 Rate Blood Pressure (mmHg) O2 Sat by Pulse Oximetry Oxygen Devices in Use Now: Nasal Cannula Appearance: Alert but looks very fatigued. Sl up in bed. Neutral affect. No cough during my visit. Eyes: No Scleral Icterus Respiratory: Clear to Percussion, - - Wheeze vs upper airway sound all isbell Cardiovascular: NL Sounds; No Murmurs; No JVD, RRR, No Edema, - Extremities: No Edema, No Clubbing, Cyanosis, - Skin: No Rash or Ulcers, No Nodules or Sclerosis, - Neurological: Alert and Oriented x 3, NL Sensation Result Diagrams: 05/08/19 06:30 05/08/19 06:30 Microbiology and Other Data: Microbiology 05/02/19 18:58 Blood Culture - Final Blood Venous No Growth Day 5 05/02/19 15:22 Gram Stain - Final Sputum Expectorated Sputum Culture - Final Klebsiella Pneumoniae Normal Vilma 05/03/19 04:30 Legionella Urinary Antigen - Final Urine Negative Legionella Antigen Streptococcus pneumoniae Ag Screen - Final Negative S. pneumo Antigen 05/02/19 17:28 Nasal Screen MRSA (PCR) - Final Nasal Mrsa Not Detected Assess/Plan/Problems-Billing Assessment: Mrs Stuart is a 73yo F with PMH of rheumatoid arthritis, chronic pain, CAD, HTN, hypothyroidism, who presented to ED with dyspnea, found to have severe sepsis secondary to pneumonia. Patient is admitted to ICU, will transfer care to Dr Alvarado. Will continue to monitor closely. - Patient Problems (1) Community acquired pneumonia Current Visit: No Status: Acute Code(s): J18.9 - PNEUMONIA, UNSPECIFIED ORGANISM SNOMED Code(s): 944887213 Comment: Continue aztreonam, start prednsione taper 05/09. (2) Hypothyroidism Current Visit: No Status: Acute Code(s): E03.9 - HYPOTHYROIDISM, UNSPECIFIED SNOMED Code(s): 88687283 Comment: - Home levothyroxine, TSH wnl 02/06/2019. (3) Coronary artery disease Current Visit: No Status: Acute Code(s): I25.10 - ATHSCL HEART DISEASE OF [place] CORONARY ARTERY W/O ANG PCTRS SNOMED Code(s): 92043102 Comment: Continue metoprolol. (4) Rheumatoid arthritis Current Visit: No Status: Acute Code(s): M06.9 - RHEUMATOID ARTHRITIS, UNSPECIFIED SNOMED Code(s): 71136528 Comment: - MTX and hydroxychloroquine on hold due to infection. (5) Hypertension Current Visit: No Status: Acute Code(s): I10 - ESSENTIAL (PRIMARY) HYPERTENSION SNOMED Code(s): 17632633 Comment: - Continue Verapamil, Metoprolol.
[2019-05-08] MEDS: Cyclobenzaprine TAB* 10 MG PO PRN (21:22)
[2019-05-09] MEDS: Aztreonam (*) 2 GM in NS 0.9% 100 ML* 100 ML IV SCH (03:16)
[2019-05-09] MEDS: Acetaminophen / Codeine* #3 (300 MG/30 MG) TAB PO PRN ×2 (03:26→08:54)
[2019-05-09] MEDS: Levothyroxine TAB* 112 MCG TAB PO SCH (05:08)
[2019-05-09] MEDS: Heparin VIAL(*) 5000 UNITS/ML VIAL (FIVE THOUSAND) SUBCUT SCH ×2 (05:08→14:21)
[2019-05-09] MEDS: Buprenorph Patch Check Q Shift 1 NOTE MISC FOLLOW UP SCH (06:54)
[2019-05-09] MEDS: Metoprolol Tartrate TAB* 50 mg PO SCH (08:54)
[2019-05-09] MEDS: ALPRAZolam TAB* 0.25 MG PO PRN (08:54)
[2019-05-09] MEDS: Cyclobenzaprine TAB* 10 MG PO PRN (08:54)
[2019-05-09] MEDS: DULoxetine DR CAP* 20 MG CAP.DR PO SCH (08:56)
[2019-05-09] MEDS: Verapamil SR CAP* 180 MG PO SCH (08:56)
[2019-05-09] MEDS: Folic Acid TAB* 1 MG PO SCH (08:56)
[2019-05-09] MEDS: Cyanocobalamin TAB* 500 MCG PO SCH (08:56)
[2019-05-09] MEDS: Gabapentin CAP(*) 300 MG PO SCH ×2 (08:56→14:21)
--- NOTE | 2019-05-09 10:23 | PN ---
Progress Note - Progress Note Date of Service: 05/09/19 Note: Time spent on discharge including dexam of patient, discussion with pt, nurse, CM, review of EHR and preparation of discharge documents is 45 minutes.
[2019-05-09] MEDS ORDERED: DOXYcycline CAP(*) 100 MG PO SCH (10:30)
[2019-05-09 11:04] VITALS: BP 131/68
--- NOTE | 2019-05-09 12:40 | TRS ---
CC: Dr. Ortega; Dr. Ifeanyi Adler; [facility] * DATE OF ADMISSION: 05/02/2019. DATE OF TRANSFER: 05/09/2019. HISTORY OF PRESENT ILLNESS: This 73-year-old woman presented with malaise and shortness of breath. She was found with CTA of the chest, she had diffuse consolidation of the right and left lower lung, and was felt to have pneumonia. Her Methotrexate and Hydroxychloroquine were held during this hospital stay. She was started on Aztreonam and Levofloxacin in the emergency room. She was continued on Aztreonam and later this was changed to Doxycycline. She did well in the hospital; however, she has a very poor ambulation and is really confined to an electric wheelchair and was having difficulty with transfers and is going to a half-way for further rehab. She is on a Prednisone taper as well. FINAL DIAGNOSES: 1. Community-acquired pneumonia. 2. Hypothyroidism. 3. Coronary artery disease. 4. Rheumatoid arthritis. 5. Hypertension. DISCHARGE MEDICATIONS: 1. Vitamin B12 1,000 mcg daily. 2. Doxycycline 100 mg b.i.d. 3. Hydroxychloroquine 200 mg daily to start 05/15/2019. 4. Nabumetone 500 mg t.i.d. 5. Duloxetine DR 20 mg daily. 6. Alprazolam 0.25 mg b.i.d. prn. 7. Atorvastatin 40 mg daily. 8. Methotrexate 5 mg every Wednesday to start 05/17/2019. 9. Verapamil ER 180 mg daily. 10. Levothyroxine 112 mcg daily. 11. Omeprazole 20 mg daily. 12. Gabapentin 300 mg t.i.d. 13. Folic acid 1 mg daily. 14. Metoprolol Tartrate 50 mg b.i.d. 15. Calcium with vitamin D3 one b.i.d. 16. Potassium Chloride 10 mEq b.i.d. 17. Ibuprofen 400 mg every 8 hours prn. 18. Diclofenac 1% gel q.i.d. prn. 19. Acetaminophen with codeine 30 mg two tablets b.i.d. prn. 20. Cyclobenzaprine 5 mg b.i.d. prn. 21. Buprenorphine 15 mcg patch every 7 days. 22. Albuterol inhaler two puffs every 4 hours prn. 23. Simethicone 80 mg every 6 hours prn. 24. Tegaderm dressing weekly. 25. Magnesium Hydroxide/Aluminum Hydroxide/Simethicone suspension 15 ml every 4 hours prn. CONDITION ON DISCHARGE: Stable. DISPOSITION ON DISCHARGE: Discharged to [facility]. [id number]/CPS #: [id number] MTDD
== END 2019-05-09 15:55 | DRG 871 ==
LOC: ED 14:28 → ICU 16:35 → MEDTELE 05-07 10:20
PROVIDERS: ADMIT Internal Medicine; ATTEND Internal Medicine
PROC: 02HV33Z Insertion of Infusion Device into Superior Vena Cava, Percutaneous Approach (ICD-10-PCS; principal; 2019-05-03)
PROC: 30233N1 Transfusion of Nonautologous Red Blood Cells into Peripheral Vein, Percutaneous Approach (ICD-10-PCS; 2019-05-03)
PROC: 3E033XZ Introduction of Vasopressor into Peripheral Vein, Percutaneous Approach (ICD-10-PCS; 2019-05-03)
DX: A41.9 Sepsis, unspecified organism (principal); J96.01 Acute respiratory failure with hypoxia; J15.0 Pneumonia due to Klebsiella pneumoniae; I42.2 Other hypertrophic cardiomyopathy; E87.2 Acidosis; J44.0 Chronic obstructive pulmonary disease with (acute) lower respiratory infection; I24.8 Other forms of acute ischemic heart disease; R65.20 Severe sepsis without septic shock; E03.9 Hypothyroidism, unspecified; I25.10 Atherosclerotic heart disease of native coronary artery without angina pectoris; M06.9 Rheumatoid arthritis, unspecified; D63.8 Anemia in other chronic diseases classified elsewhere; E78.00 Pure hypercholesterolemia, unspecified; R79.89 Other specified abnormal findings of blood chemistry; M81.0 Age-related osteoporosis without current pathological fracture; I10 Essential (primary) hypertension; G89.29 Other chronic pain; F41.9 Anxiety disorder, unspecified; F32.9 Major depressive disorder, single episode, unspecified; Z66 Do not resuscitate; Z88.0 Allergy status to penicillin; Z88.1 Allergy status to other antibiotic agents; Z88.2 Allergy status to sulfonamides; Z99.3 Dependence on wheelchair; Z79.899 Other long term (current) drug therapy; Z79.890 Hormone replacement therapy; Z87.891 Personal history of nicotine dependence; Z93.3 Colostomy status
CPT/HCPCS: 36415; 71045; 71275; 74174; 80048; 80053; 82607; 82728; 82746; 83540; 83550; 83605; 83880; 84484; 85025; 85060; 86850; 86900; 86901; 86922; 87040; 87070; 87077; 87186; 87205; 87641; 87899; 93005; 93306; 94640; 94667; 99285; A9270-GY; C1751; J0360; J1644; J1940; J2270; J2920; J2930; J3010; J7512; P9040; Q9967

== ENCOUNTER 2020-10-23 06:24 | Inpatient (IN) ==
[2020-10-23] MEDS ORDERED: Ondansetron 4 mg VIAL 2 MG/ML 2 ml VIAL IV ONE (06:34)
[2020-10-23] MEDS ORDERED: NS 0.9% 1000 ml BAG 1,000 ML IV ONE (06:34)
[2020-10-23 07:48] LABS: ABS Lymphocytes 0.6 10^3/ul (1.0-4.8); ABS Monocytes 0.5 10^3/ul (0-0.8); ABS Neutrophils 11.5 10^3/ul (1.5-7.7); Hematocrit 44 % (35-47); Hemoglobin 14.5 g/dL (12.0-16.0); Lymphocyte % 4.7 %; Mean Corpuscular HGB Conc 33 g/dL (31-36); Mean Corpuscular Hemoglobin 30 pg (27-31); Mean Corpuscular Volume 90 fL (80-97); Mean Platelet Volume 8.7 fL (7.4-10.4); Platelet Count 253 10^3/uL (150-450); Red Blood Count 4.86 10^6 /uL (3.70-4.87); Red Cell Distribution Width 18 % (10-15); White Blood Count 12.7 10^3/uL (3.5-10.8)
[2020-10-23] MEDS ORDERED: Lorazepam PYXIS KEY PRN (08:01)
[2020-10-23] MEDS ORDERED: LORazepam 2 mg VIAL 1 ml IV PUSH ONE (08:01)
[2020-10-23 08:05] LABS: Albumin 4.1 g/dL (3.2-5.2); Albumin/Globulin Ratio 1.6 (1-3); C Reactive Protein 2.28 mg/L (<8.01); EGFR Non-African American 81.8 (>60); Globulin 2.5 g/dL (2-4); Total Bilirubin 0.4 mg/dL (0.2-1.0); Total Protein 6.6 g/dL (6.4-8.9)
[2020-10-23 08:17] LABS: Magnesium 1.8 mg/dL (1.9-2.7)
[2020-10-23] MEDS ORDERED: Iohexol 350 (CONTRAST) 500 ML MDV IV ONE (08:34)
[2020-10-23] MEDS ORDERED: Morphine 4 MG/ML VIAL (1 ml) IV ONE (09:41)
[2020-10-23 12:06] LABS: Urine Appearance Clear; Urine Bilirubin Negative (Negative); Urine Blood 1+ (Negative); Urine Color Straw; Urine Glucose Negative (Negative); Urine Ketones Negative (Negative); Urine Nitrite Negative (Negative); Urine Protein Negative (Negative); Urine Specific Gravity 1.019 (1.002-1.030); Urine Urobilinogen Negative (Negative)
[2020-10-23 12:11] LABS: Urine Bacteria Absent (Absent); Urine Red Blood Cell 1+(3-5/hpf) (Absent); Urine Squamous Epithelial Cell Present (Absent); Urine White Blood Cell Trace(0-5/hpf) (Absent)
[2020-10-23] MEDS ORDERED: Albuterol HFA INHALER 8 gm MDI INH PRN (14:20)
[2020-10-23] MEDS ORDERED: Al Hydrox/Mg Hydrox/Simet LIQ 30 ML UDC PO PRN (14:20)
[2020-10-23] MEDS ORDERED: Enoxaparin 40 MG/0.4 ML SYR SUBCUT SCH (15:00)
[2020-10-23] MEDS ORDERED: Metoclopramide 5 MG/ML VIAL (10 mg) IV PRN (15:44)
[2020-10-23] MEDS ORDERED: Albuterol/Ipratropium NEB.SOL (2.5/0.5 MG) 3 ML NEB.SOLN INH PRN (16:33)
[2020-10-23] MEDS ORDERED: Morphine ORAL.SOLN 10 mg 2 mg/ml UDC 5 ml (10 mg) PO PRN (16:33)
[2020-10-23] MEDS ORDERED: Naloxone Nasal Spray 4 MG/0.1 ML NASAL.SPR INTRANASAL PRN (16:33)
[2020-10-23] MEDS ORDERED: Denosumab 60 MG/ML SYRINGE SUBCUT SCH (16:45)
[2020-10-23] MEDS: Mometasone/Formoter 200/5 MDI INH SCH (20:15)
[2020-10-23] MEDS ORDERED: ICOSAPENT ETHYL 1 GM CAPSULE (NF) PO SCH (21:00)
[2020-10-23] MEDS: Morphine ER 15 mg TAB ** extended release PO SCH (21:48)
[2020-10-23] MEDS: Potassium Chlor 10 meq TAB PO SCH (21:51)
[2020-10-24] MEDS: NS 0.9% 1000 ml BAG 1,000 ML IV SCH ×2 (01:27→11:41)
[2020-10-24 06:12] LABS: Hematocrit 41 % (35-47); Hemoglobin 13.6 g/dL (12.0-16.0); Mean Corpuscular HGB Conc 34 g/dL (31-36); Mean Corpuscular Hemoglobin 30 pg (27-31); Mean Corpuscular Volume 91 fL (80-97); Mean Platelet Volume 8.7 fL (7.4-10.4); Platelet Count 251 10^3/uL (150-450); Red Blood Count 4.49 10^6 /uL (3.70-4.87); Red Cell Distribution Width 18 % (10-15); White Blood Count 9.1 10^3/uL (3.5-10.8)
[2020-10-24 06:23] LABS: Calcium 8.3 mg/dL (8.6-10.3); EGFR African American 107.8 (>60); EGFR Non-African American 89.1 (>60); Potassium 3.9 mmol/L (3.5-5.0)
[2020-10-24] MEDS: Mometasone/Formoter 200/5 MDI INH SCH (07:46)
[2020-10-24] MEDS: Potassium Chlor 10 meq TAB PO SCH (08:26)
[2020-10-24] MEDS: Morphine ER 15 mg TAB ** extended release PO SCH (08:26)
[2020-10-24 11:55] VITALS: BP 171/84
== END 2020-10-24 15:30 | disposition home or self-care (01) | DRG 103 ==
LOC: ED 06:24 → MEDTELE 14:06
PROVIDERS: ADMIT Internal Medicine; ATTEND Hospitalist

== ENCOUNTER 2020-11-07 04:06 | Inpatient (IN) ==
[2020-11-07] MEDS ORDERED: Ondansetron 4 mg VIAL 2 MG/ML 2 ml VIAL IV ONE (04:31)
[2020-11-07 05:27] LABS: ABS Lymphocytes 0.7 10^3/ul (1.0-4.8); ABS Monocytes 0.9 10^3/ul (0-0.8); ABS Neutrophils 6.3 10^3/ul (1.5-7.7); Eosinophil % 0.2 %; Hematocrit 49 % (35-47); Hemoglobin 16.3 g/dL (12.0-16.0); Lymphocyte % 8.9 %; Mean Corpuscular HGB Conc 33 g/dL (31-36); Mean Corpuscular Hemoglobin 30 pg (27-31); Mean Corpuscular Volume 91 fL (80-97); Mean Platelet Volume 8.9 fL (7.4-10.4); Nucleated Red Blood Cells % 0.4; Platelet Count 253 10^3/uL (150-450); Red Blood Count 5.42 10^6 /uL (3.70-4.87); Red Cell Distribution Width 18 % (10-15); White Blood Count 7.9 10^3/uL (3.5-10.8)
[2020-11-07 05:45] LABS: Albumin 4.1 g/dL (3.2-5.2); Albumin/Globulin Ratio 1.5 (1-3); C Reactive Protein 52.36 mg/L (<8.01); Calcium 8.4 mg/dL (8.6-10.3); EGFR African American 81.3 (>60); EGFR Non-African American 67.2 (>60); Globulin 2.8 g/dL (2-4); Total Bilirubin 0.6 mg/dL (0.2-1.0); Total Protein 6.9 g/dL (6.4-8.9)
[2020-11-07] MEDS ORDERED: Iohexol 300 (CONTRAST) 10 ML SDV IV ONE (05:51)
[2020-11-07] MEDS ORDERED: Droperidol 5 MG/2 ML 2 ML VIAL IV ONE (06:42)
[2020-11-07] MEDS ORDERED: Famotidine IV 10 MG/ML 2 ml VIAL (20 mg) IV SLOW PU ONE ×2 (07:42→08:02)
[2020-11-07] MEDS ORDERED: Lactated Ringers 1000 ml BAG 1,000 ML IV ONE ×3 (07:42→14:12)
[2020-11-07] MEDS ORDERED: Haloperidol 5 mg/ml SDV IV/IM 5 MG/ML AMP IV SLOW PU ONE (08:02)
[2020-11-07 09:56] LABS: Urine Appearance Cloudy; Urine Bilirubin Negative (Negative); Urine Blood 1+ (Negative); Urine Color Yellow; Urine Glucose Negative (Negative); Urine Ketones 1+ (Negative); Urine Nitrite Negative (Negative); Urine Protein 1+(30 mg/dL) (Negative); Urine Specific Gravity 1.042 (1.002-1.030); Urine Urobilinogen Negative (Negative)
[2020-11-07 09:58] LABS: Urine Bacteria Absent (Absent); Urine Red Blood Cell 1+(3-5/hpf) (Absent); Urine Squamous Epithelial Cell Present (Absent); Urine White Blood Cell Trace(0-5/hpf) (Absent)
[2020-11-07] MEDS ORDERED: metroNIDAZOLE IV 500 MG/100ML 500 MG/100 ML BAG IVPB ONE (11:54)
[2020-11-07] MEDS: Lactated Ringers 1000 ml BAG 1,000 ML IV SCH (12:28)
[2020-11-07] MEDS ORDERED: Albuterol HFA INHALER 8 gm MDI INH PRN (14:20)
[2020-11-07] MEDS ORDERED: Albuterol/Ipratropium NEB.SOL (2.5/0.5 MG) 3 ML NEB.SOLN INH PRN (14:20)
[2020-11-07] MEDS ORDERED: Morphine 2 MG/ML SYRINGE IV ONE (17:15)
[2020-11-07 20:19] LABS: TSH Ultra Thyroid Stim Horm 2.7 mcIU/mL (0.34-5.60)
[2020-11-07] MEDS ORDERED: metroNIDAZOLE IV 500 MG/100ML 500 MG/100 ML BAG IVPB SCH (20:30)
[2020-11-07] MEDS: Prochlorperazine 5 mg/ml 2 ml VIAL (10 mg) IV PRN (20:44)
[2020-11-07] MEDS: Enoxaparin 40 MG/0.4 ML SYR SUBCUT SCH (20:49)
[2020-11-07] MEDS: Potassium Chlor 10 meq TAB PO SCH (21:04)
[2020-11-07] MEDS: Morphine ER 15 mg TAB ** extended release PO SCH (21:05)
[2020-11-07 22:04] LABS: Troponin I 0.07 ng/mL (<0.03)
[2020-11-07] MEDS: Mometasone/Formoter 200/5 MDI INH SCH (22:17)
[2020-11-07] MEDS: Ondansetron 4 mg VIAL 2 MG/ML 2 ml VIAL IV PRN (22:49)
[2020-11-08] MEDS: Prochlorperazine 5 mg/ml 2 ml VIAL (10 mg) IV PRN (04:19)
[2020-11-08] MEDS: Morphine ORAL.SOLN 10 mg 2 mg/ml UDC 5 ml (10 mg) PO PRN (04:40)
[2020-11-08 04:44] LABS: Troponin I 0.06 ng/mL (<0.03)
[2020-11-08] MEDS: Lactated Ringers 1000 ml BAG 1,000 ML IV SCH ×2 (05:19→17:23)
[2020-11-08] MEDS: Mometasone/Formoter 200/5 MDI INH SCH ×2 (07:11→21:51)
[2020-11-08 07:42] LABS: ABS Basophils 0.1 10^3/ul (0-0.2); ABS Eosinophils 0.1 10^3/ul (0-0.6); ABS Monocytes 0.8 10^3/ul (0-0.8); ABS Neutrophils 4.8 10^3/ul (1.5-7.7); Eosinophil % 1.3 %; Hematocrit 42 % (35-47); Hemoglobin 14.3 g/dL (12.0-16.0); Lymphocyte % 14.7 %; Mean Corpuscular HGB Conc 34 g/dL (31-36); Mean Corpuscular Hemoglobin 31 pg (27-31); Mean Corpuscular Volume 90 fL (80-97); Mean Platelet Volume 8.7 fL (7.4-10.4); Nucleated Red Blood Cells % 0.1; Platelet Count 184 10^3/uL (150-450); Red Blood Count 4.65 10^6 /uL (3.70-4.87); Red Cell Distribution Width 18 % (10-15); White Blood Count 6.8 10^3/uL (3.5-10.8)
[2020-11-08 07:52] LABS: Calcium 7.3 mg/dL (8.6-10.3); EGFR Non-African American 95.9 (>60); Potassium 3.9 mmol/L (3.5-5.0)
[2020-11-08] MEDS: Ondansetron 4 mg VIAL 2 MG/ML 2 ml VIAL IV PRN (10:15)
[2020-11-08] MEDS: Morphine ER 15 mg TAB ** extended release PO SCH ×2 (10:17→21:28)
[2020-11-08] MEDS: Potassium Chlor 10 meq TAB PO SCH ×2 (10:18→21:29)
[2020-11-08] MEDS ORDERED: cefTRIAXone 1 gm/50 mL NS BAG 1 GM/50 ML BAG IVPB SCH (15:00)
[2020-11-08] MEDS: Enoxaparin 40 MG/0.4 ML SYR SUBCUT SCH (21:24)
[2020-11-08] MEDS: Calcium Carb (TUMS) 500 mg CHEW TAB PO PRN (23:17)
[2020-11-09] MEDS: Lactated Ringers 1000 ml BAG 1,000 ML IV SCH (02:48)
[2020-11-09 06:34] LABS: Hematocrit 38 % (35-47); Hemoglobin 12.7 g/dL (12.0-16.0); Mean Corpuscular HGB Conc 33 g/dL (31-36); Mean Corpuscular Hemoglobin 30 pg (27-31); Mean Corpuscular Volume 91 fL (80-97); Mean Platelet Volume 8.4 fL (7.4-10.4); Platelet Count 172 10^3/uL (150-450); Red Blood Count 4.19 10^6 /uL (3.70-4.87); Red Cell Distribution Width 18 % (10-15); White Blood Count 5.3 10^3/uL (3.5-10.8)
[2020-11-09 06:53] LABS: Calcium 7.4 mg/dL (8.6-10.3); EGFR African American 130.7 (>60); Potassium 4.1 mmol/L (3.5-5.0)
[2020-11-09] MEDS ORDERED: GALCANEZUMAB GNLM 120 MG/ML SUBCUT SCH (08:00)
[2020-11-09] MEDS: Mometasone/Formoter 200/5 MDI INH SCH ×2 (08:53→19:48)
[2020-11-09] MEDS: Morphine ER 15 mg TAB ** extended release PO SCH ×2 (09:51→21:18)
[2020-11-09] MEDS: Potassium Chlor 10 meq TAB PO SCH ×2 (09:51→21:18)
[2020-11-09] MEDS: SUMAtriptan Subcut 6 MG/0.5 ML VIAL SUBCUT PRN ×2 (09:52→11:21)
[2020-11-09] MEDS ORDERED: Calcium Gluconate 2 GM in NS 0.9% 100 ml BAG 100 ML IV ONE (11:00)
[2020-11-09] MEDS: Enoxaparin 40 MG/0.4 ML SYR SUBCUT SCH (21:16)
[2020-11-10] MEDS: Mometasone/Formoter 200/5 MDI INH SCH ×2 (07:21→21:40)
[2020-11-10] MEDS: Al Hydrox/Mg Hydrox/Simet LIQ 30 ML UDC PO PRN ×2 (08:26→20:11)
[2020-11-10] MEDS: Morphine ER 15 mg TAB ** extended release PO SCH ×2 (08:28→20:12)
[2020-11-10] MEDS: Potassium Chlor 10 meq TAB PO SCH ×2 (08:28→20:12)
[2020-11-10] MEDS: Enoxaparin 40 MG/0.4 ML SYR SUBCUT SCH (20:09)
[2020-11-11 06:57] LABS: EGFR African American 105.9 (>60); EGFR Non-African American 87.5 (>60); Potassium 4.5 mmol/L (3.5-5.0)
[2020-11-11] MEDS: Calcium Carb (TUMS) 500 mg CHEW TAB PO PRN (08:37)
[2020-11-11] MEDS: Morphine ER 15 mg TAB ** extended release PO SCH ×2 (08:38→19:59)
[2020-11-11] MEDS: Potassium Chlor 10 meq TAB PO SCH ×2 (08:40→19:58)
[2020-11-11] MEDS: Mometasone/Formoter 200/5 MDI INH SCH ×2 (09:24→21:31)
[2020-11-11] MEDS: Al Hydrox/Mg Hydrox/Simet LIQ 30 ML UDC PO PRN ×2 (13:43→20:00)
[2020-11-11] MEDS: Nystatin TOP POWDER 15 GM BTL TOPICAL SCH (19:59)
[2020-11-11] MEDS: Enoxaparin 40 MG/0.4 ML SYR SUBCUT SCH (20:00)
[2020-11-12] MEDS: Morphine ORAL.SOLN 10 mg 2 mg/ml UDC 5 ml (10 mg) PO PRN ×3 (05:13→23:59)
[2020-11-12 06:28] LABS: Calcium 8.2 mg/dL (8.6-10.3); EGFR African American 118.2 (>60); EGFR Non-African American 97.7 (>60); Potassium 4.5 mmol/L (3.5-5.0)
[2020-11-12] MEDS: Mometasone/Formoter 200/5 MDI INH SCH ×2 (09:09→21:08)
[2020-11-12] MEDS: Morphine ER 15 mg TAB ** extended release PO SCH ×2 (09:50→20:08)
[2020-11-12] MEDS: Potassium Chlor 10 meq TAB PO SCH ×2 (10:19→20:08)
[2020-11-12] MEDS: Nystatin TOP POWDER 15 GM BTL TOPICAL SCH ×2 (10:19→20:09)
[2020-11-12] MEDS: Al Hydrox/Mg Hydrox/Simet LIQ 30 ML UDC PO PRN (20:08)
[2020-11-12] MEDS: Enoxaparin 40 MG/0.4 ML SYR SUBCUT SCH (20:09)
[2020-11-13] MEDS: Mometasone/Formoter 200/5 MDI INH SCH (07:33)
[2020-11-13] MEDS: Potassium Chlor 10 meq TAB PO SCH (08:40)
[2020-11-13] MEDS: Morphine ER 15 mg TAB ** extended release PO SCH (08:41)
[2020-11-13] MEDS: Nystatin TOP POWDER 15 GM BTL TOPICAL SCH (09:01)
[2020-11-13 15:35] VITALS: BP 134/72
== END 2020-11-13 16:19 | DRG 392 ==
LOC: ED 04:06 → MEDTELE 14:02
PROVIDERS: ADMIT Hospitalist; ATTEND Internal Medicine